=== PATIENT | male | born 1975 | race Caucasian/White ===

== ENCOUNTER 2024-02-12 14:33 | Inpatient (IN) | payer OTHER, SELFPAY ==
--- NOTE | ~2024-02-12 | CT_ITS ---
EXAMINATION: CT CERVICAL SPINE without contrast CLINICAL INFORMATION: Reason for Exam neck pain ams ? Fall COMPARISON: No prior CT scan available for comparison. TECHNIQUE: Computed axial sagittal and coronal images acquired using department's standard protocol. This CT examination was performed using dose optimization techniques as appropriate, variously including the following: *Automated exposure control *Adjustment of mA and/or kV according to patient size (this includes techniques or standardized protocols for targeted exams where dose is matched to indication/reason for exam; i.e. extremities or head) *Use of iterative reconstruction technique CONTRAST: None DLP: 647 mGy-cm FINDINGS: SKULL BASE: Visualized structures at skull base are normal, Included facial sinuses are clear, CERVICAL VERTEBRAE: Seven cervical vertebrae identified maintaining proper height and alignment, there is subtle radiolucent line through the left pedicle of C5 concerning for possible nondisplaced fracture. This does not involve the central canal. ATLANTOAXIAL AND ATLANTOOCCIPITAL ARTICULATION: Included occipital condyle are properly articulating with C1, measuring of C1 is intact. Proper articulation of the odontoid process with C1. POSTERIOR SPINES and lateral transverse processes: All are intact. DISCS: Narrowing of intervertebral disc spaces especially at C5-C6 and developed small osteophyte from the edges of endplates encroaching on the neural foramen bilaterally at multiple levels. PREVERTEBRAL SOFT TISSUE: There is prevertebral soft tissue swelling anterior to C7 LUNG APICES: Included lung apices are clear bilaterally. Paravertebral soft tissue including LYMPH NODE AND SALIVARY GLANDS THYROID: Paravertebral soft tissue including cervical lymph nodes are within normal limits. Included paranasal and salivary unremarkable. CT/CT cervical spine wo IV con IMPRESSION: 1. Subtle radiolucent line through the left pedicle of C5 concerning for possible nondisplaced fracture. This does not involve the central canal. 2. Narrowing of intervertebral disc spaces especially at C5-C6 and developed small osteophyte from the edges of endplates encroaching on the neural foramen bilaterally at multiple levels. 3. Prevertebral soft tissue swelling anterior to C7. 4. Would recommend recommend immobilization, follow-up MRI. (Referring physician staff is being called, by physician staff assistance, to be alerted of the above critical findings and recommendations.) Age 602/12/2024 6:17 PM
--- NOTE | ~2024-02-12 | XR_ITS ---
EXAMINATION: XR CERVICAL SPINE CLINICAL INFORMATION: Flexion and extension views of the cervical spine. COMPARISON: CT cervical spine 02/12/2024. TECHNIQUE: Flexion and extension lateral views of the cervical spine. FINDINGS: Trace retrolisthesis at C5-C6 is unchanged compared to prior CT and is stable on flexion and extension views. Trace anterolisthesis/angulation at C4-C5 is noticeable on the flexion view, not present on the extension view. No evidence of acute compression deformity. Subtle possible left pedicular fracture at C5 is better seen on prior CT. Stable intervertebral disc height loss at C5-C6. Redemonstration of multilevel cervical spondylosis. Again noted prevertebral soft tissue thickening anterior to C5-C7, best visualized on prior CT. XR/XR cervical spine w flex/ext IMPRESSION: Increased trace anterolisthesis/angulation at C4-C5 on the flexion view with stable trace retrolisthesis at C5-C6 and intervertebral disc height loss at C5-C6. Redemonstration of prevertebral soft tissue thickening from C5 through C6. Recommend further evaluation of ligamentous injuries as well as spinal cord signal abnormalities and collections with an MRI of the cervical spine.
--- NOTE | ~2024-02-12 | MR_ITS ---
EXAMINATION: MR CERVICAL SPINE WITHOUT CONTRAST CLINICAL INFORMATION: Hyperdynamic motion of the cervical spine. Potential fracture by CT. COMPARISON: CT cervical spine from 02/12/2024. Cervical spine radiographs from 02/12/2024. TECHNIQUE: MRI of the cervical spine was obtained using routine sequences without contrast. FINDINGS: Partial straightening of the normal cervical lordosis. Mild degenerative anterolisthesis of C3 on C4. Moderate degenerative retrolisthesis of C5 on C6. Advanced degenerative disc disease at C5-C6. Mild degenerative disc disease at all additional levels. Associated mixed Modic type discogenic and plate changes including Modic type I discogenic edema at C2 C4 and C5-C6. Mild marrow edema within the posterior elements of C3-C7 consistent with degenerative stress reaction. No additional suspicious marrow edema. The vertebral body heights are well-maintained. No prevertebral edema. The anterior longitudinal ligament, posterior longitudinal ligament, and ligamentum flavum complex appear intact. No epidural collection. No demonstrated spinal cord signal abnormalities. Limited evaluation of the soft tissues of the neck without demonstrated abnormalities. The flow voids of the major cervical vessels are maintained. The previously noted potential fracture at C6 localizes to calcific atherosclerotic disease of the left vertebral artery. Normal appearance of the cervicomedullary junction and visualized posterior fossa. SPINAL LEVELS: C2-C3: Normal annular contour. There is mild right and no left uncovertebral joint arthropathy. There is mild bilateral facet joint arthropathy. There is no neural foraminal stenosis. There is no spinal canal stenosis. C3-C4: Mild disc-osteophyte complex. There is moderate right and mild left uncovertebral joint arthropathy. There is severe right and mild left facet joint arthropathy. There is moderate right and no left neural foraminal stenosis. There is no spinal canal stenosis. C4-C5: Mild disc-osteophyte complex. There is mild right and no left uncovertebral joint arthropathy. There is moderate bilateral facet joint arthropathy. There is no neural foraminal stenosis. There is no spinal canal stenosis. C5-C6: Moderate disc-osteophyte complex. There is severe right and moderate left uncovertebral joint arthropathy. There is moderate bilateral facet joint arthropathy. There is severe right and moderate left neural foraminal stenosis. There is mild spinal canal stenosis. C6-C7: Minimal disc-osteophyte complex. There is mild right and no left uncovertebral joint arthropathy. There is moderate bilateral facet joint arthropathy. There is mild right and no left neural foraminal stenosis. There is no spinal canal stenosis. C7-T1: Normal annular contour. There is no uncovertebral joint arthropathy. There is no facet joint arthropathy. There is no neural foraminal stenosis. There is no spinal canal stenosis. MR/MR cervical spine wo con IMPRESSION: 1. Moderate multilevel degenerative spondyloarthropathy of the cervical spine as described in detail above. Most notably, there is mild spinal canal stenosis at C5-C6. Moderate to severe neural foraminal stenoses at C3-C4 and C5-C6. 2. No evidence of acute traumatic injury of the cervical spine.
--- NOTE | ~2024-02-12 | CT_ITS ---
EXAMINATION: CT CHEST, ABDOMEN AND PELVIS with contrast CLINICAL INFORMATION: Reason for Exam ? Fall ethos ams COMPARISON: None TECHNIQUE: Multidetector volumetric CT imaging of the chest abdomen and pelvis obtained Axial MIP volume rendering provided. Sagittal and coronal reformatted images were obtained. This CT examination was performed using dose optimization techniques as appropriate, variously including the following: *Automated exposure control *Adjustment of mA and/or kV according to patient size (this includes techniques or standardized protocols for targeted exams where dose is matched to indication/reason for exam; i.e. extremities or head) *Use of iterative reconstruction technique CONTRAST: 85 mL Omnipaque 350 injected. Reformatted coronal and sagittal imaging was performed. FINDINGS: FOLDING MACHINE FEEDER, LINES TUBES: Special Skills Officer reviewed, no lines. LUNGS: Interstitial: No evidence of significant interstitial disease. Lung nodules: There is peripheral pleural-based nodule 7 x 3 mm, averaging 5 mm right upper lobe pleural-based image 166 series 25. AIRWAYS: Trachea and bronchi are normal. PLEURA: No pleural effusion or pneumothorax. MEDIASTINUM AND [place]: The visualized thyroid gland is unremarkable. No mediastinal, hilar or axillary lymphadenopathy. There is no mediastinal mass. THORACIC AORTA: Thoracic aorta is normal in size. CHEST WALL, LOWER NECK, SURROUNDING SOFT TISSUES: Normal HEART AND PERICARDIUM: Heart is normal in size. There is no pericardial effusion. There are heavy coronary calcifications. HEPATOBILIARY: Enlarged diffusely hypodense liver suggesting hepatic steatosis. GALLBLADDER: Gallbladder unremarkable. SPLEEN: Spleen is enlarged 14 cm. PANCREAS: No focal mass or ductal dilatation. GI TRACT: No distention or wall thickening. No CT evidence of appendicitis. ADRENALS: No adrenal nodules. KIDNEYS/URETERS: No hydronephrosis, stones or solid mass lesions. PELVIC ORGANS/BLADDER: Unremarkable PERITONEUM: No free air or fluid. LYMPH NODES: Mildly prominent retroperitoneal para-aortic lymph nodes uncertain etiology, no bulky adenopathy. VASCULAR:Abdominal aorta normal in size. There is prominence of the portal vein, varices around the umbilicus and gastroesophageal junction, this is suspicious for portal hypertension portosystemic anastomosis. No ascites. BONES, ABDOMINAL WALL AND SOFT TISSUES: Age-appropriate changes of the spine and skeletal system, no destructive osteolytic or osteosclerotic bone lesion found CT/CT abdomen pelvis w IV con IMPRESSION: 1. No CT evidence of solid organ injury. 2. Enlarged diffusely hypodense liver suggesting hepatic steatosis. 3. Splenomegaly 14 cm. 4. There is prominence of the portal vein, varices around the umbilicus and gastroesophageal junction, this is suspicious for portal hypertension portosystemic anastomosis. No ascites. 5. Mildly prominent retroperitoneal para-aortic lymph nodes uncertain etiology, no bulky adenopathy. 6. Heavy coronary calcifications. 7. There are tiny lung nodules largest 7 mm pleural-based right upper lobe. According to the UPDATED 2017 Fleischner Society recommendations, the advised follow-up imaging for solid nodules <6 mm in the middle/lower lobes is no routine follow up.
--- NOTE | ~2024-02-12 | US_ITS ---
EXAMINATION: US ABDOMEN LIMITED CLINICAL INFORMATION: Evaluate for cirrhosis. COMPARISON: CT abdomen 02/12/2024. TECHNIQUE: Liver ultrasound was performed. FINDINGS: Enlarged echogenic liver consistent with steatosis. Subtle nodular contour. No discrete liver mass. No biliary ductal dilatation. Recanalized umbilical vein. Portal venous flow is normally directed into the liver. US/US abdomen limited IMPRESSION: Steatotic liver with nodular contour suggesting cirrhosis. Recanalized umbilical vein consistent with portal venous hypertension.
--- NOTE | ~2024-02-12 | CT_ITS ---
EXAMINATION: CT CHEST, ABDOMEN AND PELVIS with contrast CLINICAL INFORMATION: Reason for Exam ? Fall ethos ams COMPARISON: None TECHNIQUE: Multidetector volumetric CT imaging of the chest abdomen and pelvis obtained Axial MIP volume rendering provided. Sagittal and coronal reformatted images were obtained. This CT examination was performed using dose optimization techniques as appropriate, variously including the following: *Automated exposure control *Adjustment of mA and/or kV according to patient size (this includes techniques or standardized protocols for targeted exams where dose is matched to indication/reason for exam; i.e. extremities or head) *Use of iterative reconstruction technique CONTRAST: 85 mL Omnipaque 350 injected. Reformatted coronal and sagittal imaging was performed. FINDINGS: ASSISTED LIVING HOME DIRECTOR, LINES TUBES: Associate Director Data & Analytics reviewed, no lines. LUNGS: Interstitial: No evidence of significant interstitial disease. Lung nodules: There is peripheral pleural-based nodule 7 x 3 mm, averaging 5 mm right upper lobe pleural-based image 166 series 25. AIRWAYS: Trachea and bronchi are normal. PLEURA: No pleural effusion or pneumothorax. MEDIASTINUM AND [place]: The visualized thyroid gland is unremarkable. No mediastinal, hilar or axillary lymphadenopathy. There is no mediastinal mass. THORACIC AORTA: Thoracic aorta is normal in size. CHEST WALL, LOWER NECK, SURROUNDING SOFT TISSUES: Normal HEART AND PERICARDIUM: Heart is normal in size. There is no pericardial effusion. There are heavy coronary calcifications. HEPATOBILIARY: Enlarged diffusely hypodense liver suggesting hepatic steatosis. GALLBLADDER: Gallbladder unremarkable. SPLEEN: Spleen is enlarged 14 cm. PANCREAS: No focal mass or ductal dilatation. GI TRACT: No distention or wall thickening. No CT evidence of appendicitis. ADRENALS: No adrenal nodules. KIDNEYS/URETERS: No hydronephrosis, stones or solid mass lesions. PELVIC ORGANS/BLADDER: Unremarkable PERITONEUM: No free air or fluid. LYMPH NODES: Mildly prominent retroperitoneal para-aortic lymph nodes uncertain etiology, no bulky adenopathy. VASCULAR:Abdominal aorta normal in size. There is prominence of the portal vein, varices around the umbilicus and gastroesophageal junction, this is suspicious for portal hypertension portosystemic anastomosis. No ascites. BONES, ABDOMINAL WALL AND SOFT TISSUES: Age-appropriate changes of the spine and skeletal system, no destructive osteolytic or osteosclerotic bone lesion found CT/CT chest w IV con IMPRESSION: 1. No CT evidence of solid organ injury. 2. Enlarged diffusely hypodense liver suggesting hepatic steatosis. 3. Splenomegaly 14 cm. 4. There is prominence of the portal vein, varices around the umbilicus and gastroesophageal junction, this is suspicious for portal hypertension portosystemic anastomosis. No ascites. 5. Mildly prominent retroperitoneal para-aortic lymph nodes uncertain etiology, no bulky adenopathy. 6. Heavy coronary calcifications. 7. There are tiny lung nodules largest 7 mm pleural-based right upper lobe. According to the UPDATED 2017 Fleischner Society recommendations, the advised follow-up imaging for solid nodules <6 mm in the middle/lower lobes is no routine follow up.
--- NOTE | ~2024-02-12 | CT_ITS ---
CT head/brain wo IV con CLINICAL INFORMATION: Reason for Exam ams COMPARISON: [address] 2019 TECHNIQUE: Department standard protocol. This CT examination was performed using dose optimization techniques as appropriate, variously including the following: *Automated exposure control *Adjustment of mA and/or kV according to patient size (this includes techniques or standardized protocols for targeted exams where dose is matched to indication/reason for exam; i.e. extremities or head) *Use of iterative reconstruction technique DLP: mGy-cm FINDINGS: CEREBRAL HEMISPHERES: There is no evidence of intra-axial or extra-axial mass, hemorrhage or acute infarct. BRAIN PARENCHYMA: Normal oh-white matter differentiation. SUBDURAL SPACE: No bleed. BASAL GANGLIA AND PINEAL GLAND: Unremarkable VENTRICLES: Symmetric and normal in size. CEREBELLUM AND BRAINSTEM: No space-occupying mass, hemorrhage or acute infarct. CEREBELLOPONTINE ANGLES: No lesion found. ORBITS: No intraorbital mass. VESSELS: Unremarkable SKULL BASE: Unremarkable INCLUDED SINUSES AT SKULL BASE: Clear SKULL AND SKIN: No fracture or bone lesion found. CT/CT head/brain wo IV con IMPRESSION: No CT evidence of intracranial space-occupying mass, bleed or infarct.
--- NOTE | 2024-02-12 14:34 | ECG_ITS ---
Test Reason : TACHYCARDIA Blood Pressure : / mmHG Vent. Rate : 090 BPM Atrial Rate : 090 BPM P-R Int : 150 ms QRS Dur : 088 ms QT Int : 388 ms P-R-T Axes : 003 -20 041 degrees QTc Int : 474 ms Normal sinus rhythm Septal infarct , age undetermined Abnormal ECG When compared with ECG of 02-JAN-2019 14:29, Septal infarct is now Present Nonspecific T wave abnormality now evident in Inferior leads Referred By: Cortez Oneal Electronically Signed By:SEBAS TAMEZ MD
[2024-02-12 14:48] VITALS: BP 182/92; PULSE 103; RESP 22; TEMP 37.2; O2SAT 96; BMI 24.4
[2024-02-12] MEDS: 0.9 % Sodium Chloride 1,000 ML 999 ML IV (14:53)
--- NOTE | 2024-02-12 14:57 | ED.SEIZURE ---
HPI - Seizure General Chief Complaint: Seizure Stated Complaint: SEIZURE Time Seen by Provider: 02/12/24 14:34 Source: patient Mode of arrival: ambulatory Limitations: altered mental status History of Present Illness ED Provider: Brooklynn TARANGO HPI Narrative: This is a 48-year-old male history of alcohol use disorder with alcohol withdrawal seizures presenting to the emergency department status post seizure that occurred prior to arrival, according to patient's mother he was in a sober house for about 8 months, recently got out since then he has been drinking 1-3 beers per day, his last drink was a few days ago, she reports the last time she heard from him was yesterday when he was normal her overt today he was vomiting in the morning and just did not seem well. She tried to give him something to drink however this did not seem to help. She denies history of substance abuse. She reports he has had alcohol withdrawal seizures last 1 was about 2-3 years ago. Patient unable to answer history questions or review of systems. He is awake however not answering questions not following commands. Related Data Home Medications ?Medication ?Instructions ?Recorded ?Confirmed No Known Home Meds 02/12/24 02/12/24 Allergies Allergy/AdvReac Type Severity Reaction Status Date / Time No Known Allergies Allergy Unverified 02/12/24 14:51 [No Known Allergies*] Review of Systems Review of Systems: Yes all other systems are reviewed and are negative PMFSH Past Medical History Attestation statement: The following information was validated with the patient. Source: old records reviewed and nursing notes reviewed Social History Social History Alcohol intake: current Alcohol intake frequency: 3 or more drinks per day Alcohol type: beer Smoked in Last 30 Days: No Use of substances other than those prescribed or required for medical reasons: Yes Substance Use Type: Crack/Cocaine, Painkillers and Prescription Drugs Advance Directives: No Advance Directives Information Provided: No Physical Exam Vital Signs: Vital Signs: Last Vital Signs Temp 99.0 F 02/12/24 19:26 Pulse 81 02/12/24 22:38 Resp 17 02/12/24 22:38 BP 142/76 H 02/12/24 22:38 Pulse Ox 98 02/12/24 22:38 O2 Del Method Room Air 02/12/24 22:38 BMI result Body Mass Index 24.4 vss Appearance:Awake. No acute distress.?Eyes open. Not speaking Head: Normocephalic, atraumatic, no step-offs or deformities Eyes: Pupils equal, round and reactive to light.? Neck: Normal inspection.? Neck supple.? CVS: Normal heart rate and rhythm.? Pulses normal.? Respiratory: No respiratory distress.? Breath sounds normal.? Abdomen: Soft and nontender.? Skin: Skin warm and dry.? Normal skin color.? Normal skin turgor.? Extremities: No lower extremity edema.? Patient not following commands difficult to access strength Back: No midline tenderness, no C-spine tenderness, full range of motion, no CVA tenderness bilaterally Neuro: Awake. Not following comands. Course Reevaluation(s) Reevaluation #1: CBC unremarkable. Baseline leukopenia. Chemistry pending. Ethanol 44 Patient now much more awake he states he has 8 drinks a day last one lasat night around 7 pm also endorses that he uses percocet and cocaine. Time: 15:30 Reevaluation #2: Sign out to Eddi TARANGO, pending ct scan and hospital admission Time: 15:52 Reevaluation #3: 4:30 p.m., February 12, 2024 Received sign-out with the patient in stable condition pending imaging. Patient is currently receiving phenobarbital and magnesium repletion. 6:[address] results returned and reviewed. Cervical spine CT demonstrates multiple concerning findings including possible radiolucent line through C5 concerning for nondisplaced fracture, C5-C6 disc narrowing and prevertebral soft tissue swelling at the anterior aspect of C7. Call made to [facility] neurosurgical team. Patient placed in a cervical collar. Discussed with the patient regarding any pain. Does not appear to be entirely reliable. He does confirm that he does have pain intermittently in his neck. He does not recall any recent trauma. Patient does report occasional tingling down the left arm which affects his left 4th and 5th digits. [employer] is 5/5 bilaterally. He has full range of motion of all joints. Patient is tolerating phenobarbital without difficulty. He has not had 2 seizures here. 6:55 p.m. discussed with neurosurgical PA at [facility], Nuria Thao PA-C . Films are currently under review. Reviewed radiology report. Agrees with current plan of a cervical collar and likely follow-up imaging. No indications for transfer at this time. She will call back once images are fully loaded and reviewed. 7:[address] Vaughn for hospital admission. 8:00 p.m. received call back from Nuria Thao PA-C , neurosurgery at [facility]. She was able to review axial images since all images did not upload, I have requested radiology re-upload to [facility]. In addition she is requesting flexion-extension x-ray cervical views for further evaluation are negative, patient may be from the cervical collar. This was discussed with the patient and he feels comfortable with this plan. Given the patient's history and findings, I feel it is this is reasonable to get improved views for better disposition. 9:30 p.m. this time. Upon returning from x-ray, cervical collar was returned until official radiology reading. CT images reviewed by neurosurgical team. X-rays also reviewed, no acute process but we will wait for official reading. Dr. Vaughn notified. February 13, 2024, 12:30 a.m. patient resting comfortably at this time. Official x-ray reading returned. Patient remains in cervical collar. Dr. Vaughn notified. Medications Administered Generic Name Dose Route Start Last Admin Trade Name Freq PRN Reason Stop Dose Admin Enoxaparin Sodium 40 mg 02/12/24 19:15 02/12/24 19:46 Enoxaparin Sodium 40 Mg/0.4 Ml Syringe SUBCUT 40 mg Q24H OBDULIO Administration Thiamine HCl 100 mg/ Sodium 101 mls @ 202 mls/hr 02/12/24 19:20 02/12/24 20:16 Chloride IV Infused DAILY OBDULIO Infusion Sodium Chloride 3 ml 02/13/24 00:00 02/13/24 00:13 0.9 % Sodium Chloride Flush 3 Ml Syringe IVFLUSH 3 ml QSHIFT OBDULIO Administration Discontinued Medications Generic Name Dose Route Start Last Admin Trade Name Freq PRN Reason Stop Dose Admin Famotidine 20 mg 02/12/24 21:45 02/12/24 22:12 Famotidine 20 Mg Tablet PO Not Given BID OBDULIO Sodium Chloride 1,000 mls @ 999 mls/hr 02/12/24 14:45 02/12/24 16:12 Ns IV 02/12/24 15:45 Infused .Q1H1M OBDULIO Infusion Magnesium Sulfate 2 gm in 50 mls @ 25 mls/hr 02/12/24 15:33 02/12/24 17:50 Magnesium Sulfate/H2o IV 02/12/24 17:32 Infused ONCE ONE Infusion Iohexol 85 ml 02/12/24 16:21 02/12/24 16:22 Iohexol 350 Mg/Ml 100 Ml Infus..Btl IV 02/12/24 16:22 85 ml ONCE ONE Administration Lorazepam 2 mg 02/12/24 16:00 02/12/24 16:00 Lorazepam 2 Mg/Ml Vial IM 02/12/24 16:01 2 mg ONCE ONE Administration Phenobarbital Sodium 438 mg 02/12/24 15:30 02/12/24 16:06 Phenobarbital Sodium 130 Mg/Ml Im Once IM 02/12/24 15:31 438 mg ONCE ONE Administration Protocol Phenobarbital Sodium 345 mg 02/12/24 18:30 02/12/24 19:47 Phenobarbital Sodium 130 Mg/Ml Vial Im Q3hx2 IM 02/12/24 21:31 345 mg Q3H OBDULIO Administration Protocol Phenobarbital Sodium 345 mg 02/12/24 22:30 02/12/24 22:39 Phenobarbital Sodium 130 Mg/Ml Vial Im Q3hx2 IM 02/12/24 22:31 345 mg Q3H OBDULIO Administration Protocol Medical Decision Making Medical Decision Making [facility] Narrative: 1435 48-year-old male presents with seizure prior to arrival history of alcohol withdrawal seizures has been drinking anywhere between 1-3 beers for the past week or so according to mother. Patient unable to answer questions. Physical exam patient awake, not following commands. No signs of evident trauma. Pupils equal round and reactive. Last known well time yesterday, out of stroke window, unable to obtain NIH stroke scale secondary to patient not following commands. Unclear if there was trauma associated or not. Concerns for alcohol use disorder with acute delirium tremens and alcohol withdrawal seizures. Will rule out metabolic derangements, traumatic injury to head, neck, chest, abdomen and pelvis. Also rule out polysubstance abuse. Patient placed on seizure precautions. Plan at this time will place patient on seizure precautions concerns, imaging, urine. Differential Diagnosis Differential Diagnoses: The differential diagnosis associated with the presentation includes Concerns for alcohol use disorder with acute delirium tremens and alcohol withdrawal seizures. Will rule out metabolic derangements, traumatic injury to head, neck, chest, abdomen and pelvis. Also rule out polysubstance abuse. Patient placed on seizure precautions. Admission/Observation Consideration of admission/observation: Escalation of care including admission/observation considered Lab Data MDM Lab Attestation statement: I reviewed the patient's lab results. 02/12/24 15:04 02/12/24 15:04 Labs: Lab Results 02/12/24 02/12/24 Range/Units 15:04 16:42 WBC 3.4 L (4.8-10.8) X10*3/uL RBC 4.78 (4.60-5.80) X10*6/uL Hgb 14.1 (14.0-18.0) g/dl Hct 40.1 L (42.0-52.0) % MCV 83.9 (80.0-98.0) fL MCH 29.5 (27.0-33.0) pg MCHC 35.2 (31.0-36.0) g/dl RDW 13.7 (11.0-16.0) % Plt Count 25 L (160-400) X10*3/uL MPV Not Reportable Immature Gran % (Auto) 0.6 H (0.0-0.4) % Neut % (Auto) 75.8 H (45-73) % Lymph % (Auto) 16.0 L (20-40) % Weakley % (Auto) 6.7 (2-11) % Eos % (Auto) 0.3 (0-4) % Baso % (Auto) 0.6 (0-2) % Lymph # (Auto) 0.6 L (1.2-4.9) X10*3/uL Weak[place] # (Auto) 0.2 (0.1-1.2) X10*3/uL Eos # (Auto) 0.0 (0.0-0.4) X10*3/uL Baso # (Auto) 0.0 (0.0-0.2) X10*3/uL Abs Immat Gran (auto) 0.02 (0.00-0.03) X10*3/uL Absolute Neuts (auto) 2.6 (2.0-8.3) x10*3/uL Absolute Nucleated RBC 0.000 (0.0-0.012) X10*3/uL Nucleated RBC % (auto) 0.0 (0.0-0.2) /100WBC Sodium 138 (135-145) mmol/L Potassium 3.3 (3.3-5.1) mmol/L Chloride 99 (96-108) mmol/L Carbon Dioxide 25 (22-29) mmol/L Anion Gap 17 (12-20) BUN 6 L (9-16) mg/dL Creatinine 0.68 (0.5-1.4) mg/dL Estim Creat Clear Calc 134.1 Estimated GFR > 60 Random Glucose 96 (60-115) mg/dL Calcium 9.3 (8.4-10.2) mg/dL Magnesium 1.1 L* (1.6-2.6) mg/dL Total Bilirubin 1.5 H (0.0-1.0) mg/dL AST 112 H (5-37) U/L ALT 63 H (0-40) U/L Alkaline Phosphatase 91 (39-117) U/L Troponin I High Sens < 2.7 (<3.5-35.0) ng/L Total Protein 8.2 H (6.5-8.0) g/dL Albumin 4.0 (3.5-5.0) g/dL Salicylates < 5.0 L (15-30) mg/dL Urine Opiates Screen Not Detected (Not Detect) Ur Buprenorphine Scrn Not Detected (Not Detect) ng/mL Ur Oxycodone Screen Not Detected (Not Detect) ng/mL Urine Methadone Screen Not Detected (Not Detect) ng/mL Urine Fentanyl Screen Not Detected (Not Detect) Acetaminophen < 3 (<30) mcg/mL Ur Barbiturates Screen POSITIVE H (Not Detect) Ur Phencyclidine Scrn Not Detected (Not Detect) Ur Amphetamines Screen Not Detected (Not Detect) U Benzodiazepines Scrn Not Detected (Not Detect) Urine Cocaine Screen Not Detected (Not Detect) U Marijuana (THC) Screen Not Detected (Not Detect) Ethyl Alcohol 44 mg/dL Independent Interpretation I performed an independent interpretation of an: CT Scan Radiology Impression Discussion of test interpretation with radiology: I discussed test interpretation with the radiologist and I have reviewed the radiologist's reading. Radiologist Impression: [address] [address] XRay Report Signed Patient: Timbo Rodriguez MR#: [id number] : 1975 Acct:[id number] Age/Sex: 48 / M ADM Date: 02/12/24 Loc: [facility]: Carlos Vaughn MD Ordering Physician: Eddi Graves Date of Service: 02/12/24 Procedure(s): XR cervical spine w flex/ext Accession Number(s): [id number] cc: Physician,Unknown ; Eddi Graves~ EXAMINATION: XR CERVICAL SPINE CLINICAL INFORMATION: Flexion and extension views of the cervical spine. COMPARISON: CT cervical spine 02/12/2024. TECHNIQUE: Flexion and extension lateral views of the cervical spine. FINDINGS: Trace retrolisthesis at C5-C6 is unchanged compared to prior CT and is stable on flexion and extension views. Trace anterolisthesis/angulation at C4-C5 is noticeable on the flexion view, not present on the extension view. No evidence of acute compression deformity. Subtle possible left pedicular fracture at C5 is better seen on prior CT. Stable intervertebral disc height loss at C5-C6. Redemonstration of multilevel cervical spondylosis. Again noted prevertebral soft tissue thickening anterior to C5-C7, best visualized on prior CT. XR/XR cervical spine w flex/ext IMPRESSION: Increased trace anterolisthesis/angulation at C4-C5 on the flexion view with stable trace retrolisthesis at C5-C6 and intervertebral disc height loss at C5-C6. Redemonstration of prevertebral soft tissue thickening from C5 through C6. Recommend further evaluation of ligamentous injuries as well as spinal cord signal abnormalities and collections with an MRI of the cervical spine. Dictated By: Josie Hdz Signed By: <Electronically signed by Josie Hdz in OV> 02/12/244 DD/ 41 TD/TT: Answering Service Agent: Independent Historian Clinical information obtained from an independent historian. History obtained from or confirmed by: Parent (mother ) Chronic Conditions Patient?s care impacted by: Other (alcohol use d/o ) Critical Care Time Critical Care Time Critical Care Time: Yes Total Critical Care Time: 45 Attestation: I attest to this time spent taking care of the patient, obtaining history, physical, reviewing labs, imaging, speaking to my attending, specialist or hospitalist. Discharge Plan Discharge Clinical Impression: Alcohol withdrawal seizure Patient Disposition: Admitted As Inpatient
[2024-02-12 15:08] LABS: MANUAL DIFF FLAG NO
[2024-02-12 15:10] LABS: Basophils Percent Auto 0.6 % (0-2); Eosinophils Percent Auto 0.3 % (0-4); Hematocrit 40.1 % (42.0-52.0); Hemoglobin 14.1 g/dl (14.0-18.0); Imm Gran Abs Auto 0.02 X10*3/uL (0.00-0.03); Imm Gran Pct Auto 0.6 % (0.0-0.4); Lymphocytes Absolute Auto 0.6 X10*3/uL (1.2-4.9); Mean Corpuscular HGB Conc 35.2 g/dl (31.0-36.0); Mean Corpuscular Hemoglobin 29.5 pg (27.0-33.0); Mean Corpuscular Volume 83.9 fL (80.0-98.0); Monocytes Absolute Auto 0.2 X10*3/uL (0.1-1.2); Monocytes Percent Auto 6.7 % (2-11); Neutrophils Absolute Auto 2.6 x10*3/uL (2.0-8.3); Neutrophils Percent Auto 75.8 % (45-73); Red Blood Count 4.78 X10*6/uL (4.60-5.80); Red Cell Distribution Width 13.7 % (11.0-16.0); White Blood Count 3.4 X10*3/uL (4.8-10.8)
--- NOTE | 2024-02-12 15:12 | PC.NURSE ---
Pt presents to ED via PV by mother. Mother bringing pt to ER, pt had seizure in car lasting approx 5 mins, unresponsive and full body shaking. Hx of daily alcohol use with last drink yesterday, hx of withdrawal seizures years ago. Hx obtained from mother due to pt not responding. Mother reports pt drinks between 2-6 drinks a day to her knowledge, no drug use. Pt brought in and administered 2mg of Ativan by RN IM in left thigh, verbal order from provider. Alert but not responding, breathing elevated, skin hot and clammy. Pt noted to be tachy on monitor worker and hypertensive. Seizure precautions in place.
[2024-02-12 15:23] VITALS: BP 147/82; PULSE 96; RESP 18; O2SAT 96
[2024-02-12 15:23] LABS: Ethanol 44 mg/dL
[2024-02-12 15:30] LABS: Salicylate < 5.0 mg/dL (15-30)
--- NOTE | 2024-02-12 15:30 | PC.NURSE ---
Pt awake, answering questions. Oriented to person, place and time. Reports daily alcohol use of 8 beers a day, last drink yesterday. Use of cocaine and painkillers as well, unknown last use. Reports chest pains and palpitations at this time, across his chest, 06/16.
[2024-02-12 15:35] LABS: Alanine Aminotransferase 63 U/L (0-40); Alkaline Phosphatase 91 U/L (39-117); Anion Gap 17 (12-20); Aspartate Amino Transferase 112 U/L (5-37); Bilirubin Total 1.5 mg/dL (0.0-1.0); Blood Urea Nitrogen 6 mg/dL (9-16); Calcium 9.3 mg/dL (8.4-10.2); Carbon Dioxide 25 mmol/L (22-29); Chloride 99 mmol/L (96-108); Creatinine Clr Calc Pharmacy 134.1; Estimated Glomerular Filt Rate > 60; Glucose Random 96 mg/dL (60-115); Magnesium 1.1 mg/dL (1.6-2.6); Potassium 3.3 mmol/L (3.3-5.1); Sodium 138 mmol/L (135-145); Total Protein 8.2 g/dL (6.5-8.0)
--- OUTSIDE RECORDS SUMMARY | 2024-02-12 15:38 | XMS_ITS | Continuity of Care Document ---
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 Name Role Phone Ivette FRANKS, [facility] Primary Care Physician [place] [facility] [place]s): 04/03/23 - 04/09/[address] [id number] Encounter Diagnosis Pancytopenia(Final) - 04/03/23 Alcohol use disorder, severe, dependence(Final) - 04/03/23 Syncope(Final) - 04/03/23 Alcohol intoxication(Final) - 04/03/23 Withdrawal seizures(Final) - 04/03/23 Discharge Disposition: A-D/C Home Attending Physician: Naomi Nunez MD Admitting Physician: Christos iRley MD Referring Physician: Not on Staff, Referring MD Allergies, Adverse Reactions, Alerts No Known Allergies Immunizations Given and Recorded Vaccine Date Status Refusal Reason pneumococcal 23-valent vaccine 09/25/19 Given influenza virus vaccine, inactivated 09/25/19 Give n tetanus-diphtheria toxoids (Td) 09/07/07 Given Medications acamprosate 333 mg oral delayed release tablet = 666 mg, By Mouth, 3 times a day with meals, # 180 tablet, 3 Refills, Maintenance, 04/09/23 9:42:00 EDT, Tablet, [facility], Partial fill upon patient request if the prescription is for a schedule II opioid drug. Start Date: 04/09/23 Status: Ordered folic acid 1 mg oral tablet 1 mg, 1, tablet, By Mouth, Daily, # 90 tablet, Refills 0, Tot. Refills 0, Maintenance, 04/09/23 9:42:00 EDT, Route to Pharmacy Electronically, [facility] Start Date: 04/09/23 Stop Date: 07/08/23 Status: Ordered multivitamin Multiple Vitamins oral tablet 1 tablet, By Mouth, Daily, # 90 tablet, 0 Refills, Maintenance, 04/09/23 9:42:00 EDT, Tablet, [facility], Partial fill upon patient request if the prescription is for a schedule II opioid drug., 1 tablet By Mouth Daily Start Date: 04/09/23 Status: Ordered thiamine 100 mg oral tablet 100 mg, 1, tablet, By Mouth, Daily, for 90 days, # 90 tablet, Refills 0, Tot. Refills 0, Acute 07/08/23 9:43:00 EDT, 04/09/23 9:43:00 EDT, Route to Pharmacy Electronically, [facility], Partial fill upon patient request if the prescriptio... Start Date: 04/09/23 Stop Date: 07/08/23 Status: Ordered Vitamin B-12 1000 mcg oral tablet 1,000 mcg, 1, tablet, By Mouth, Daily, Refills 0, Maintenance, 04/03/23 7:16:00 EDT, Partial fill upon patient request if the prescription is for a schedule II opioid drug. Start Date: 04/03/23 Status: Ordered Problem List Condition Confirmation Course Effective Dates Status [facility] Informant Chronic alcohol use Confirmed Active Results Orders for Microbiology Reports Name Date Blood Parasite Smear (Malaria Smear) 03/09 Blood Culture 04/04/23 Blood Culture #2 04/04/23 Microbiology Reports TEST:Blood Parasite Smear STATUS:Auth (Verified) BODY SITE: SOURCE:Blood COLLECTED DATE/TIME:04/05/23 3:35 PM Blood Parasite Smear SPECIMEN DESCRIPTION : BLOOD SPECIAL REQUESTS : NONE DIRECT EXAM : NO INTRA OR EXTRA-ERYTHROCYTIC PARASITES OBSERVED ON THIN SMEARS NO PARASITES OBSERVED ON THICK SMEARS REPORT STATUS : FINAL 04/06/2023 TEST:Blood Culture STATUS:Auth (Verified) BODY SITE: SOURCE:Blood COLLECTED DATE/TIME:04/04/23 10:18 AM Blood Culture SPECIMEN DESCRIPTION : BLOOD LARM SPECIAL REQUESTS : NONE CULTURE : NO GROWTH 5 DAYS. REPORT STATUS : FINAL 04/09/2023 TEST:Blood Culture, Second Order STATUS:Auth (Verified) BODY SITE: SOURCE:Blood COLLECTED DATE/TIME:04/04/23 10:18 AM Blood Culture, Second Order SPECIMEN DESCRIPTION : BLOOD R ARM SPECIAL REQUESTS : NONE CULTURE : NO GROWTH 5 DAYS. REPORT STATUS : FINAL 04/09/2023 Radiology Reports * Exam Date Time Procedure Performing Provider Status 04/05/23 1:[address] Abd/Pelvis W/ IV + Oral Contrast Colon , Breanna; Auth (Verified) Notes: (CT Abd/Pelvis W/ IV + Oral Contrast) Reason For Exam: no clear source of infection;Fever RESULT: CT Abd/Pelvis W/ IV + Oral Contrast CT Chest W/ Contrast, CT Abd/Pelvis W/ IV + Oral Contrast INDICATION: Reason: Infection; SIRS with no clear source of infection; Clinical Question(s): Abscess Empyema; Special Instructions: D dimer is borderline elevated . Can we do an exam where we can check for both infection and PE ? TECHNIQUE: Helical CT scan of the chest, abdomen, and pelvis with IV contrast, formatted in 3 planes. 100 cc of Omnipaque 300 was administered intravenously. This study was performed with oral contrast. Weight-based protocol was performed using automatic exposure control. CTDIvol Body: 9.10 mGy, DLP Body: 690 mGy*cm. COMPARISON: None. FINDINGS: Facility Manager Histology view findings, lines and tubes: None. Trachea and airways: Patent without evidence of tracheal or endobronchial lesion. Lungs and pleura: Trace left lower lobe atelectasis. Lungs are otherwise well- aerated and clear with normal vascularity. No effusion or pneumothorax. Mediastinum and lore: No mass or hematoma. No mediastinal or hilar lymphadenopathy. No esophageal abnormality. Normal thyroid. Heart: Heart is normal in size. No pericardial effusion. Aorta: No aortic aneurysm. Pulmonary arteries: Normal caliber. No evidence of pulmonary embolism on this study performed without angiographic technique. Chest wall soft tissues: Mild bilateral gynecomastia. Diaphragm: Intact. Liver: Enlarged with a prominent left lobe. Diffusely diminished attenuation. No focal hepatic lesion. Recanalized umbilical vein Gallbladder: No CT evidence of gallbladder pathology. Bile ducts: No biliary ductal dilation. Spleen: Enlarged with sagittal dimension 15.1 cm. No focal splenic lesion. Pancreas: No suspicious lesion or ductal dilatation. Adrenal glands: No nodule. Kidneys and ureters: No hydronephrosis, stone, or suspicious lesion. Bladder: No wall thickening or surrounding stranding. Reproductive organs: Bilateral hydroceles. Otherwise unremarkable. Stomach, small bowel, and large bowel: Normal caliber stomach and bowel loops. No surrounding inflammatory changes. Appendix: The appendix is well seen and appears normal. There is mild inflammatory change in the fat near the appendix in the right lower quadrant. Peritoneum and retroperitoneum: No ascites or pneumoperitoneum. No omental or mesenteric lesions. Lymph nodes: No enlarged lymph nodes. Blood vessels: No vascular calcifications or aneurysm. Recanalized umbilical vein and esophageal varices are noted. Abdominal and pelvic wall soft tissues: No acute abnormality. Bones: No acute abnormality. IMPRESSION: No specific etiology of infection is demonstrated. Hepatosplenomegaly with evidence of portal venous hypertension including esophageal varices and a recanalized umbilical vein. Nonspecific mild inflammatory change in the right lower quadrant of the abdomen. Note is made that the appendix appears normal. Bilateral hydroceles. WSN: [id number] Ordering Physician: Jose Garcai Dictated By: Kareem Vasquez MD Dictated Date/Time: 04/05/23 2:46 pm Reviewed By: Kareem Vasquez MD Signed By: Kareem Vasquez MD Signed Date/Time: 04/05/23 2:46 pm Transcribed By: ABNER Transcribed Date/Time: 04/05/23 2:29 pm * Exam Date Time Procedure Performing Provider Status 04/05/23 1:[address] Chest W/ Contrast Colon , Breanna; Auth (Verified) Notes: (CT Chest W/ Contrast) Reason For Exam: SIRS with no clear source of infection;Infection RESULT: CT Chest W/ Contrast CT Chest W/ Contrast, CT Abd/Pelvis W/ IV + Oral Contrast INDICATION: Reason: Infection; SIRS with no clear source of infection; Clinical Question(s): Abscess Empyema; Special Instructions: D dimer is borderline elevated . Can we do an exam where we can check for both infection and PE ? TECHNIQUE: Helical CT scan of the chest, abdomen, and pelvis with IV contrast, formatted in 3 planes. 100 cc of Omnipaque 300 was administered intravenously. This study was performed with oral contrast. Weight-based protocol was performed using automatic exposure control. CTDIvol Body: 9.10 mGy, DLP Body: 690 mGy*cm. COMPARISON: None. FINDINGS: Facility Manager Histology view findings, lines and tubes: None. Trachea and airways: Patent without evidence of tracheal or endobronchial lesion. Lungs and pleura: Trace left lower lobe atelectasis. Lungs are otherwise well- aerated and clear with normal vascularity. No effusion or pneumothorax. Mediastinum and lore: No mass or hematoma. No mediastinal or hilar lymphadenopathy. No esophageal abnormality. Normal thyroid. Heart: Heart is normal in size. No pericardial effusion. Aorta: No aortic aneurysm. Pulmonary arteries: Normal caliber. No evidence of pulmonary embolism on this study performed without angiographic technique. Chest wall soft tissues: Mild bilateral gynecomastia. Diaphragm: Intact. Liver: Enlarged with a prominent left lobe. Diffusely diminished attenuation. No focal hepatic lesion. Recanalized umbilical vein Gallbladder: No CT evidence of gallbladder pathology. Bile ducts: No biliary ductal dilation. Spleen: Enlarged with sagittal dimension 15.1 cm. No focal splenic lesion. Pancreas: No suspicious lesion or ductal dilatation. Adrenal glands: No nodule. Kidneys and ureters: No hydronephrosis, stone, or suspicious lesion. Bladder: No wall thickening or surrounding stranding. Reproductive organs: Bilateral hydroceles. Otherwise unremarkable. Stomach, small bowel, and large bowel: Normal caliber stomach and bowel loops. No surrounding inflammatory changes. Appendix: The appendix is well seen and appears normal. There is mild inflammatory change in the fat near the appendix in the right lower quadrant. Peritoneum and retroperitoneum: No ascites or pneumoperitoneum. No omental or mesenteric lesions. Lymph nodes: No enlarged lymph nodes. Blood vessels: No vascular calcifications or aneurysm. Recanalized umbilical vein and esophageal varices are noted. Abdominal and pelvic wall soft tissues: No acute abnormality. Bones: No acute abnormality. IMPRESSION: No specific etiology of infection is demonstrated. Hepatosplenomegaly with evidence of portal venous hypertension including esophageal varices and a recanalized umbilical vein. Nonspecific mild inflammatory change in the right lower quadrant of the abdomen. Note is made that the appendix appears normal. Bilateral hydroceles. WSN: [id number] Ordering Physician: Jose Garcia Dictated By: Kareem Vasquez MD Dictated Date/Time: 04/05/23 2:46 pm Reviewed By: Kareem Vasquez MD Signed By: Kareem Vasquez MD Signed Date/Time: 04/05/23 2:46 pm Transcribed By: ABNER Transcribed Date/Time: 04/05/23 2:29 pm * Exam Date Time Procedure Performing Provider Status 04/05/23 10:57 AM Knee 1 or 2 Views Right Halina Márquez; Auth (Verified) Notes: (Knee 1 or 2 Views Right) Reason For Exam: check for effusion concern for infection;Infection RESULT: Knee 1 or 2 Views Right Knee 1 or 2 Views Right, 2 views Reason: Infection; check for effusion concern for infection. COMPARISON: None. FINDINGS: There is no evidence of acute or healing fracture, dislocation or bone lesion. No arthritic changes. No osteochondral defects or intra-articular loose bodies. No evidence of joint effusion. IMPRESSION: No acute displaced fracture or radiographic evidence of osteomyelitis. WSN: [id number] Ordering Physician: Jose Garcia Dictated By: Anya Ramos MD Dictated Date/Time: 04/05/23 11:05 a Reviewed By: Anya Ramos MD Signed By: Anya Ramos MD Signed Date/Time: 04/05/23 11:05 am Transcribed By: ABNER Transcribed Date/Time: 04/05/23 11:05 am * Exam Date Time Procedure Performing Provider Status 04/03/23 5:12 PM US Liver/Spleen Tessa Garcia; Auth (Verified) Notes: (US Liver/Spleen) Reason For Exam: ETOH Abuse RESULT: US Liver/Spleen US Liver/Spleen Reason: ETOH Abuse; Clinical Question(s): Cirrhosis COMPARISON: None. FINDINGS: Liver: Heterogeneous echotexture. No focal lesion is seen. Nodular hepatic contour. Main portal vein patent with normal hepatopetal direction of flow. Recanalized umbilical vein. Biliary Tree: No intrahepatic or extrahepatic bile duct dilation is identified. Common duct measures: 0.3 cm. Spleen: Mildly enlarged up to 16.8 cm Other: No free fluid. IMPRESSION: Cirrhotic liver with mild splenomegaly. WSN: [id number] Ordering Physician: Venkat Brown Dictated By: Rc Gómez MD Dictated Date/Time: 04/03/23 8:24 pm Reviewed By: Rc Gómez MD Signed By: Rc Gómez MD Signed Date/Time: 04/03/23 8:24 pm Transcribed By: ABNER Transcribed Date/Time: 04/03/23 8:23 pm * Exam Date Time Procedure Performing Provider Status 04/03/23 2:29 AM Chest 2 Views Frontal and Lat Georgia May; Auth (Verified) Notes: (Chest 2 Views Frontal and Lat) Reason For Exam: Shortness of Breath RESULT: Chest 2 Views Frontal and Lat Chest 2 Views Frontal and Lat Reason: Shortness of Breath; Clinical Question(s): CHF COMPARISON: 03/08/2019 FINDINGS: LINES AND TUBES: None. LUNGS AND PLEURA: Low lung volumes and mild asymmetric elevation of the right hemidiaphragm. Clear lungs. Normal pulmonary vascularity. No pleural effusion. No pneumothorax. HEART, MEDIASTINUM AND LORE: Heart is normal in size. Normal mediastinal and hilar contour. BONES AND SOFT TISSUES: No acute abnormality. Mild chronic degenerative changes. IMPRESSION: No acute abnormality. WSN: [id number] Ordering Physician: Blanca Arenas Dictated By: Felisa Saenz MD Dictated Date/Time: 04/03/23 7:55 am Reviewed By: Felisa Saenz MD Signed By: Felisa Saenz MD Signed Date/Time: 04/03/23 7:55 am Transcribed By: ABNER Transcribed Date/Time: 04/03/23 7:54 am * Exam Date Time Procedure Performing Provider Status 04/03/23 3:58 AM US Doppler Ext Lower Venous Bilat Shakira Amador; Auth (Verified) Notes: (US Doppler Ext Lower Venous Bilat) Reason For Exam: Pain in limb;Other: RESULT: US Doppler Ext Lower Venous Bilat US Doppler Ext Lower Venous Bilat Reason: Pain in limb; Clinical Question(s): Thrombosis COMPARISON: None IMAGING TECHNIQUE: Ultrasound of the veins from the groin through the calf was performed using grayscale, color, and spectral Doppler ultrasound assessing for complete compressibility and normal flowcharacteristics. FINDINGS: RIGHT LOWER EXTREMITY: Common femoral vein: Patent. No thrombosis. Femoral vein: Patent. No thrombosis. Popliteal vein: Patent. No thrombosis. Gastrocnemius veins: The visualized portions are patent without evidence of thrombosis. Peroneal veins: The visualized portions are patent without evidence of thrombosis. Posterior tibial veins: The visualized portions are patent without evidence of thrombosis. LEFT LOWER EXTREMITY: Common femoral vein: Patent. No thrombosis. Femoral vein: Patent. No thrombosis. Popliteal vein: Patent. No thrombosis. Gastrocnemius veins: The visualized portions are patent without evidence of thrombosis. Peroneal veins: The visualized portions are patent without evidence of thrombosis. Posterior tibial veins: The visualized portions are patent without evidence of thrombosis. OTHER FINDINGS: There is diffuse calf edema. IMPRESSION: No evidence of deep venous thrombosis. I have personally reviewed the images and I agree with this report. WSN: [id number] Ordering Physician: Blanca Arenas Dictated By: Daniela Mondragon DO Dictated Date/Time: 04/03/23 6:36 am Reviewed By: Ayo Lowry MD Signed By: Ayo Lowry MD Signed Date/Time: 04/03/23 6:41 am Transcribed By: ABNER Transcribed Date/Time: 04/03/23 4:12 am * Exam Date Time Procedure Performing Provider Status 04/03/23 3:[address] Head/Brain W/O Contrast Ariadne Barnes Z; Auth (Verified) Notes: (CT Head/Brain W/O Contrast) Reason For Exam: Trauma RESULT: CT Head/Brain W/O Contrast CT Head/Brain W/O Contrast INDICATION: Reason: Trauma; Clinical Question(s): Hematoma; Order Comment: TECHNIQUE: Noncontrast head CT using axial technique and reconstructed in axial and coronal planes.Iterative reconstruction techniques are used to optimize dose and image quality. CTDIvol Head: 48.10 mGy, DLP Head: 773 mGy*cm. COMPARISON: None. FINDINGS: Facility Manager Histology view findings, lines and tubes: None. BRAIN AND EXTRA-AXIAL SPACES: No parenchymal hemorrhage, midline shift, or mass effect. Mcguire-white matter differentiation is wellpreserved. No acute infarct. Moderate prominence of the ventricles and sulci consistent with parenchymal volume loss. No white matter lesions. No subarachnoid hemorrhage. No subdural or epidural collection. CALVARIUM, SKULL BASE, AND SOFT TISSUES: No fractures or suspicious bony lesions. The paranasal sinuses and mastoid air cells are clear. Visualized orbits and globes are intact. The extracranial soft tissues are unremarkable. IMPRESSION: No acute intracranial pathology. I have personally reviewed the images and I agree with this report. WSN: [id number] Ordering Physician: Blanca Arenas Dictated By: Daniela Mondragon DO Dictated Date/Time: 04/03/23 7:44 am Reviewed By: Rohan Love MD Signed By: Rohan Love MD Signed Date/Time: 04/03/23 7:49 am Transcribed By: ABNER Transcribed Date/Time: 04/03/23 3:44 am Vital Signs Most recent to oldest [Reference Range]: 1 2 3 Weight 74.3 kg (04/06/23 7:00 AM) 74.5 kg (04/05/23 6:25 AM) 76.5 kg (04/03/23 10:35 PM) Oxygen Saturation [94-100 %] 99 % (04/09/23 8:00 AM) 98 % (04/09/23 6:00 AM) 94 % (04/09/23 4:00 AM) Pulse Rate [55-90 bpm] 107 bpm *H* (04/09/23 6:00 AM) 105 bpm *H* (04/09/23 4:07 AM) 100 bpm *H* (04/09/23 4:00 AM) Blood Pressure [90-138/55-84 mm Hg] 115/91mm Hg (04/09/23 8:00 AM) 136/90mm Hg (04/09/23 6:00 AM) 141/87mm Hg *H* (04/09/23 4:07 AM) Respiratory Rate [16-30 br/min] 14 br/min *L* (04/09/23 8:00 AM) 21 br/min (04/09/23 6:00 AM) 18 br/min (04/09/23 4:07 AM) Temperature [96.8-100.4 DegF] 99.1 DegF (04/09/23 6:00 AM) 99 DegF (04/09/23 4:00 AM) 99.9 DegF (04/09/23 2:55 AM) Liters per Minute 2 L/min (04/03/23 2:50 PM) 2 L/min (04/03/23 1:19 PM) 2 L/min (04/03/23 10:59 AM) Mode of Delivery (Oxygen) Room air (04/09/23 8:00 AM) Room air (04/09/23 6:00 AM) Room air (04/09/23 4:00 AM) Blood pressure sites Arm, right (04/09/23 8:00 AM) Arm, right (04/09/23 6:00 AM) Arm, right (04/09/23 4:00 AM) Temperature Route Oral (04/09/23 6:00 AM) Oral (04/09/23 4:00 AM) Oral (04/09/23 2:55 AM) Weight Obtained Via Bed scale (04/06/23 7:00 AM) Bed scale (04/05/23 6:25 AM) Bed scale (04/03/23 10:35 PM) EKG study * Event Display: ECG 12-Lead Authored Date: Please click on pdf link to open report * Event Display: ECG 12-Lead Authored Date: Ventricular Rate: 109 BPM Atrial Rate: 109 BPM P-R Interval: 146 ms QRS Duration: 76 ms Q-T Interval: 348 ms QTC Calculation(Bazett): 468 ms P Artemas: 34 degrees R Artemas: -17 degrees T Artemas: 34 degrees Sinus tachycardia Nonspecific ST and T wave abnormality Abnormal ECG When compared with ECG of 24-SEP-2019 11:33, No significant change was found Confirmed by ANGEL ANDRES MD ([id number]) on 04/04/2023 10:49:43 AM [place]: ANGEL ANDRES MD Cardiology * Event Display: Cardiac Rhythm Strips Authored Date: * Event Display: Cardiac Rhythm Strips Authored Date: Hospital Progress note * Anne Denny RN: VERIFY, PERFORM, SIGN Event Display: Progress Note Hospital Authored Date: [id number] Patient: PATRICIA MORENO Age: 47 years Sex: Male : 1975 Associated Diagnoses: None Author: Anne Denny RN Findings Problem Related to Alteration in Psychosocial : Alteration in Psychosocial Function/new 04/09/2023 9:00 EDT Alteration in Psychosocial Related to Acute Alcohol Withdrawal Goals & Outcomes, Psychosocial Psychosocial support will be provided to Pt/S.O. as needed, Pt will identify stressors leading up to event, Pt will state importance of adhering to medication regime, Pt/caregiver will be offered appropriate resources & support, Pt/caregiver will express feelings/needs/fears /concerns, Pt/caregiver will maintain/obtain psychological stability, Pt/caregiver will participate in coping skill counseling, Pt successfully withdraws with minimal side effects, Pt will be free from withdrawal symptoms Interventions, Psychosocial Assess psychosocial needs, Assess readiness to learn needed lifestyle changes, Assess/monitor level of consciousness, Collaborate with provider for psychiatric consult, Evaluate resources & support system available to pt, Offer support; discuss coping strategies, Provide a calm, supportive environment, Provide chances to express concerns/emotions/expectations, Provide info on community resources for education, support, Provide information about illness and recovery, Provide verbal limits if pt's behavior escalates Goals/Interventions, Psychosocial Yes Psychosocial, Problem Start 04/04/2023 4:24 Reviewed Plan with, Psychosocial Patient Patient Progression, Psychosocial Pt progressing according to plan . Narrative/Incidental Patient downgraded to acute level of care. He is A&Ox2 but very redirectable and pleasant with staff. VSS, NSR on the monitor. Patient continues to forget he cannot get up on his own. Bed alarm continues to stay in place and redirection provided. Awaiting his mother to arrive for discharge. Seeflow sheet for full assessment data.. * Brianna De Leon RN: PERFORM, SIGN, VERIFY Event Display: Progress Note Hospital Authored Date: Patient: PATRICIA MORENO Age: 47 years Sex: Male : 1975 Associated Diagnoses: None Author: Brianna De Leon RN Findings Problem Related to Alteration in Psychosocial : Alteration in Psychosocial Function/new 04/09/2023 0:00 EDT Alteration in Psychosocial Related to Acute Alcohol Withdrawal Goals & Outcomes, Psychosocial Psychosocial support will be provided to Pt/S.O. as needed, Pt will identify stressors leading up to event, Pt will state importance of adhering to medication regime, Pt/caregiver will be offered appropriate resources & support, Pt/caregiver will express feelings/needs/fears /concerns, Pt/caregiver will maintain/obtain psychological stability, Pt/caregiver will participate in coping skill counseling, Pt successfully withdraws with minimal side effects, Pt will be free from withdrawal symptoms Interventions, Psychosocial Assess psychosocial needs, Assess/monitor level of consciousness, Offersupport; discuss coping strategies, Provide a calm, supportive environment, Identify complications of chronic alcohol use, Determine pt's stage of withdrawal as per CIWA scale, Minimize stimulation, Offer support to pt/S.O. during acute alcohol withdrawal Goals/Interventions, Psychosocial Yes Psychosocial, Problem Start 04/04/2023 4:24 Reviewed Plan with, Psychosocial Patient Patient Progression, Psychosocial Pt progressing according to plan . Nursing Data Vital Signs : VITAL SIGNS SECTION 04/09/2023 6:00 EDT Temperature 99.1 DegF Temperature Route Oral Pulse Rate 107 bpm H Heart Rate Monitored 102 bpm H Respiratory Rate 21 br/min Systolic Blood Pressure 136 mm Hg Diastolic Blood Pressure 90 mm Hg H Blood pressure sites Arm, right Pulse Pressure 46 mm Hg Oxygen Saturation 98 % Mode of Delivery (Oxygen) Room air 04/09/2023 2:55 EDT Early Warning Score 7.00 04/09/2023 2:55 EDT Temperature 99.9 DegF Temperature Route Oral Pulse Rate 105 bpm H . Narrative/Incidental Pt is a&o to person, place and states it's 2025. SR on the monitor, max temp 99.9. Has mild tremors & beads of sweat visible, more activity tonight and setting off bed alarm a couple times. Is easily redirectable but very forgertful , occassionally requiring reminding he's in the hospital. denies CORDOVA, hallucinations. Frequent rounding completed, bed in low locked position and seizure precauions in place. . * Janay FRANKS, Naomi: PERFORM Event Display: Progress Note Hospital Authored Date: Patient: ??PATRICIA MORENO ? Age:??47 Years?Sex:??Male?:??1975?? Subjective No acute events overnight. Morning labs reviewed. Patient is met at bedside with mother accompanied, he is alert, oriented to self, person, place, situation, not fully to time (know the year but not recall the??month) but can be easily reoriented, overall calm and conversant, following all commands, no evidence of active withdrawal. Ongoing R knee pain but with full ROM in hip, knee and ankle, non-tender no significant effusion. No asterixis or tremor. 25 minutes spent to provide ETOH abstinence counselor aide, explained the serious organ damage it has caused on his body mainly liver, explained detrimental complication of decompensated cirrhosis and limited life expectancy, [facility] to help with alcohol abstinence, patient acknowledged risks of more organ damageeven life-threatening complications from ongoing ETOH use but he declined speaking to a SW or counselor in the community, he is not ready to fully commit to ETOH abstinence, but he is interested in starting medication to help alcohol craving, my concern of his ongoing ETOH use is conveyed to his mother as well who also did not show interest in obtaining additional outpatient help for his alcohol issue. Review of Systems Constitutional:??No weight loss, fever, chills, weakness or fatigue. Cardiovascular:??no chest pain Respiratory:??No shortness of breath, cough or sputum production. Gastrointestinal:??No anorexia, nausea, vomiting or diarrhea. No abdominal pain or blood in stool. Genitourinary:??No burning micturition. No urinary frequency or incontinence. Neurologic:??No headache, dizziness, syncope, unilateral weakness, ataxia, numbness or tingling in the extremities. No change in bowel or bladder control. Musculoskeletal:??R knee pain with active ROM. Objective Measurements?? Weight: 74.3 kg (04/06/23) ?? Vital Signs?? Temperature: 99.1 DegF (04/08/23 10:00:00) Temperature Route: Oral (04/08/23 10:00:00) Pulse Rate:??98 bpm??High (04/08/23 12:00:00) Heart Rate Monitored: 90 bpm (04/08/23 06:00:00) Respiratory Rate: 16 br/min (04/08/23 12:00:00) Systolic Blood Pressure: 114 mm Hg (04/08/23 12:00:00) Diastolic Blood Pressure:??86 mm Hg??High (04/08/23 12:00:00) Blood pressure sites: Arm, right (04/08/23 12:00:00) Pulse Pressure: 28 mm Hg (04/08/23 12:00:00) Oxygen Saturation: 99 % (04/08/23 12:00:00) Mode of Delivery (Oxygen): Room air (04/08/23 12:00:00) Early Warning Score: 4 (04/08/23 12:10:45) ? Pain Scores?? No qualifying data available. ? Intake/Output? 04/03 06:20 04/08 07:00 08 07:00 04/06 07:00 04/05 07:00 ?? 04/08 12:54 04/08 12:54 04/08 06:59 04/07 06:59 04/06 06:59 Intake ? 3930 ?447 ?506 ?607 ? 1366 Output ? 7550 ? 50 ? 1850 ?725 ?900 Net Total ?-3620 ?397 ?-1344 ? -118 ?466 ? Urine Count ?6 ?0 ?0 ?1 ?1 ? Precautions Constant [place] Attacher Seizure Precautions ? Physical Exam Constitutional: Alert, in no acute distress. Head EENT: Extraocular muscle movement intact.??Moist mucous membranes.?? Respiratory: Clear to auscultation. No wheezing or crackles. No use of accessory muscles. Cardiovascular: S1S2 regular. No murmurs, rubs or gallops. Gastrointestinal: Abdomen soft, non-tender, non-distended. Normal bowel sounds. Extremities: No lower extremity pitting??edema. No cyanosis or clubbing. Neurologic: AAOx3, Speech normal. No focal neurological deficits. No asterixis or tremor. Psychiatric: Normal mood and affect _ Inpatient Medications Medications (13) Active SCHEDULED: (8) Acamprosate 333mg EC Tablet (acamprosate 333 mg oral delayed release tablet) ??666 mg, By Mouth, 3 times a day with meals Folic Acid 1 mg Tablet (Folic Acid Tablet) ??1 mg, By Mouth, Daily Multivitamin Tablet ??1 tablet, By Mouth, Daily NaCl 0.9% Flush 3ml (NaCL 0.9% Flush) ??3 mL, IV Push, Every 8 hours Nystatin Powder ??1 application, Topically, 2 times a day Pyridoxine 50 mg Tablet (Pyridoxine Tablet) ??50 mg, By Mouth, Daily Thiamine 100 mg IVPB (Thiamine Inj) ??250 mg 2.5 mL, IVPB, Daily Vitamin B-12 ??1000 mcg Tablet (Vitamin B-12 1000 mcg oral tablet) ??1,000 mcg, By Mouth, Daily CONTINUOUS: (0) PRN: (5) Melatonin 3 mg Tablet (Melatonin Tablet) ??3 mg, By Mouth, Daily at bedtime NaCl 0.9% Flush 3ml (NaCL 0.9% Flush) ??3 mL, IV Push, Every 8 hours OxyCODONE 5 mg IR Tablet (oxyCODONE 5 mg oral tablet) ??5 mg, By Mouth, Every 6 hours Polyethylene Glycol 17 Gm Powder (MiraLax Powder) ??17 Gm 1 pack/packet, By Mouth, Daily Senna 8.6 mg / Docusate 50 mg tablet (Docusate/Senna Tablet) ??1 tablet, By Mouth, 2 times a day ? Results Recent Labs BLOOD COUNT & DIFF WBC 4.8 k/mm3 ()?? 04/08/2023 04:54 RBC 3.20 m/mm3 (Low)?? 04/08/2023 04:54 Hgb 7.8 Gm/dL (Low)?? 04/08/2023 04:54 Hct 26.4 % (Low)?? 04/08/2023 04:54 MCV 82.5 femtoliters ()?? 04/08/2023 04:54 MCH 24.4 pg (Low)?? 04/08/2023 04:54 MCHC 29.5 g/dL (Low)?? 04/08/2023 04:54 Platelet Count 63 k/mm3 (Low)?? 04/08/2023 04:54 RDW-SD 62.3 femtoliters (High)?? 04/08/2023 04:54 MPV 10.2 femtoliters ()?? 04/08/2023 04:54 Nucleated RBC (Automated) 0.0 #/100 WBC'S ()?? 04/08/2023 04:54 Abs. NRBC 0.0 k/mm3 ()?? 04/08/2023 04:54 ?? CHEM GENERAL Sodium 132 mmol/L (Low)?? 04/08/2023 04:54 Potassium 4.4 mmol/L ()?? 04/08/2023 04:54 Chloride 101 mmol/L ()?? 04/08/2023 04:54 Bicarbonate Level 20 mmol/L (Low)?? 04/08/2023 04:54 Anion Gap 11 ()?? 04/08/2023 04:54 Glucose Level 109 mg/dL (High)?? 04/08/2023 04:54 BUN 8 mg/dL ()?? 04/08/2023 04:54 Creatinine-Blood 0.6 mg/dL (Low)?? 04/08/2023 04:54 Estimated GFR Creatinine 120 ML/MIN/1.73 M2 ()?? 04/08/2023 04:54 Calcium 9.3 mg/dL ()?? 04/08/2023 04:54 Phosphorus 3.6 mg/dL ()?? 04/07/2023 06:01 Magnesium 1.7 mg/dL ()?? 04/07/2023 06:01 Protein, Total 7.4 Gm/dL ()?? 04/08/2023 04:54 Albumin 3.3 Gm/dL (Low)?? 04/08/2023 04:54 AG Ratio 0.8 ()?? 04/08/2023 04:54 Alkaline Phosphatase 63 units/L ()?? 04/08/2023 04:54 AST (SGOT) 64 units/L (High)?? 04/08/2023 04:54 ALT (SGPT) 18 units/L ()?? 04/08/2023 04:54 Bilirubin, Total 1.4 mg/dL (High)?? 04/08/2023 04:54 ? Blood Glucose Trend Glucose Level:??109 mg/dL??High (04/08/23 04:54:00) ? Assessment/Plan Chief Complaint: found sleeping passenger side, PD called EMS, ?beer in center console, admitted toa couple beers ?? ETOH use disorder, severe with dependence?? Severe ETOH withdrawal, resolved -has not required Ativan for 36 hours clinically oriented no evidence of active withdrawal, stop CIWA protocol, discontinue software engineer intern today if no impulsive behavior -continue thiamine/folic acid/MW -extended alcohol abstinence counselor aide given, patient has adequate insight of his issue but refused most help offered, he indeed agreed medication to help reduce alcohol craving, given liver dysfunction will start acamprosate (acknowledging that this may not be as effective due to ongoing alcohol use) ?? SIRS, resolved -evidenced by fever and tachycardia, exam, brown CT and blood culture negative for foci of infection monitor off abx ?? Syncope -presented before admission likely due to ETOH intoxication no recurence, tele no significant arrhythmia ?? 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 Pancytopenia 2/2??hypersplenism and ETOH bone marrow toxicity, stable -monitor for now ?? Discussed with RN/CM; Tele reviewed: [facility] ?? A total of 25 minutes spent on alcohol abstinence counselor aide??on top of a separate 35 minutes on patient exam, chart review, medical decision making and documentation. ?? VTE Prophylaxis:??SCD ?VTE Prophylaxis Assessment:??VTE Prophylaxis Ordered ?? Code Status:??Full ?Order Code Status:??Code Status Ordered ?? Ongoing Medical Necessity:??Encourage out of bed activity, if no ongoing signs of ETOH withdrawal will stop software engineer intern this afternoon and discharge home tomorrow ?? Discharge Planning:??Home with family support ?Order Date/Time ??Order Action ??Order Name ??Order Detail ??04/08/2023 12:52 ??Discontinue ??EtOH Intoxication (ED Only) ??04/03/23 4:35:00 EDT ??04/08/2023 12:51 ??Discontinue ??Call MD ??If patient not responding to alcohol withdrawal syndrome treatment., 04/03/23 14:08:00 EDT ??04/08/2023 12:51 ??Discontinue ??Call MD ??If IV and oral doses are ordered for clarification., 04/03/23 14:08:00 EDT ??04/08/2023 12:51 ??Discontinue ??Call MD ??If CIWA AR score is greater than 13 for 3 consecutive times page and consider rapid response team (HEAD TRIMMER) consultation., 04/03/23 14:08:00 EDT ??04/08/2023 12:51 ??Discontinue ??Call MD ??If patient mental status worsens and they are unable to take oral medications please page covering provider and suggest patient reassessment., 04/03/23 14:08:00 EDT ??04/08/2023 12:51 ??Discontinue ??Call MD ??If the CIWA-AR scale increases by 3 or more., 04/03/23 14:08:00 EDT ??04/08/2023 12:51 ??Discontinue ??Call MD ??If the CIWA-AR scale increases by 3 or more., 04/03/23 6:10:00 EDT ??04/08/2023 12:51 ??Discontinue ??Call MD ??If patient not responding to alcohol withdrawal syndrome treatment., 04/03/23 6:10:00 EDT ??04/08/2023 12:51 ??Discontinue ??Call MD ??If CIWA AR score is greater than 13 for 3 consecutive times page and consider rapid response team (HEAD TRIMMER) consultation., 04/03/23 6:10:00 EDT ??04/08/2023 12:51 ??Discontinue ??CIWA - AR Assessment ??NURSING: See order comment for instructions, 04/03/23 6:10:00 EDT ??04/08/2023 12:51 ??Discontinue ??CIWA - AR Assessment ??NURSING: See order comment for instructions, 04/03/23 14:08:00 EDT ??04/08/2023 12:51 ??Discontinue ??Lorazepam 2 mg Inj Syringe ??2 mg, IV Push Slowly, Every 2 hours, PRN: Other ??04/08/2023 12:51 ??Discontinue ??Lorazepam 2 mg Inj Syringe ??2 mg, IV Push Slowly, Every hour, PRN: Other ??04/08/2023 12:51 ??Discontinue ??Haloperidol Lactate 5 mg/mL Inj (1 mL) ??1 mg, 0.2 mL, IV Push Slowly, Every 6 hours, PRN: Other ??04/08/2023 12:51 ??Discontinue ??Lorazepam 2 mg Inj Syringe ??1 mg, IV Push Slowly, Every 2 hours, PRN: Other ??04/08/2023 11:16 ??Order ??Acamprosate 333mg EC Tablet ??666 mg, By Mouth, 3 times a day with meals ??04/08/2023 07:46 ??Order ??Change AttendingMD/DO ??Naomi Nunez MD, 04/08/23 7:46:00 EDT ??04/08/2023 07:46 ??Discontinue ??Change AttendingMD/DO ??Jose FRANKS, Jose Kevin, 04/04/23 7:18:00 EDT ? Note * Anne Denny RN: PERFORM Event Display: Discharge/Transfer Note Hospital Authored Date: Nursing Discharge Note Entered On: 04/09/2023 10:16 EDT Performed On: 04/09/2023 10:15 EDT by Anne Denny RN Nursing Discharge Note 2 Discharge Time : 04/09/2023 10:15 EDT Discharge Level of Care at Discharge : Home/Retirement/Foster Care Patient Left Unit Via : Ambulatory Patient Accompanied Off Unit with : Parent DC Instructions Provided & Signed by Pt : Yes Patient Understands D/C Instructions : Yes Patient Instructions Discharge Signed : Yes Discharge Comments : IV removed, catheter intact Did Pt have Specialty Bed or Wound Vac : No Anne Denny RN - 04/09/2023 10:15 EDT * Naomi Nunez MD: MODIFY, MODIFY, PERFORM Event Display: Discharge/Transfer Note Hospital Authored Date: [id number] Patient: ??PATRICIA MORENO ? Age:??47 Years?Sex:??Male?:??1975?? Patient Information Discharge Location: [facility] Primary Care Physician: Ivette FRANKS, [facility] Admit Date/Time: 04/03/23 06:20 Discharge Disposition Discharge Disposition: Home with Home Health Discharge Diagnosis Alcohol intoxication (F10.929) Alcohol use disorder, severe, dependence (F10.20) BRBPR (bright red blood per rectum) (K62.5) Fever (R50.9) Hypokalemia (E87.6) Hypomagnesemia (E83.42) Knee pain (M25.569) Pancytopenia (D61.818) Syncope (R55) Systemic inflammatory response syndrome (SIRS) (R65.10) Tachycardia (R00.0) Withdrawal seizures (F19.939) ?? _ Discharge Medications Acamprosate (acamprosate 333 mg oral delayed release tablet)?666?Milligram?By Mouth?3 times a day with meals Cyanocobalamin (Vitamin B-12 1000 mcg oral tablet)?1,000?Microgram?1?tablet?By Mouth?Daily Folic Acid (folic acid 1 mg oral tablet)?1?Milligram?1?tablet?By Mouth?Daily?for 90?Days Multivitamin (multivitamin Multiple Vitamins oral tablet)?1?tab(s)?By Mouth?Daily Thiamine (thiamine 100 mg oral tablet)?100?Milligram?1?tablet?By Mouth?Daily?for 90?Days ? Vaccinations and Immunoprophylaxis influenza virus vaccine, inactivated: 0.5 mL (09/25/19 08:21:00) pneumococcal 23-valent vaccine: 0.5 mL (09/25/19 08:21:00) tetanus-diphtheria toxoids (Td): 0.05 mL (09/07/07 11:50:00) ? Durable Medical Equipment Ambulatory devices needed: Walker (04/08/23) ? Medications Started Thiamine/folic acid/MW Acamprosate Medications Discontinued N/A Doses Changed N/A Allergies Allergies ?(Active and Proposed Allergies Only) NKA? (Severity: Unknown severity, Onset: Unknown) ? PCP Follow-Up/Heads-Up ETOH abstinence referral GI referral for cirrhosis Hospital Course Patient was admitted for a query syncopal episode vs. ETOH intoxication, he was admitted for ETOH withdrawal, he had intermittent fever spikes with infectious workup negative hence suspect it is related to withdrawal, on CT there is evidence of portal hypertension likely from liver cirrhosis due toETOH use. He has been off benzo for 48 hours and not scoring on CIWA, fully alert and oriented and hemodynamically stable, tolerate diet, he is ambulatory but slightly unsteady need stand by walking assistance, he refused rehab upfront and PT eval is pending, but he insists of going home and would not want to wait that, explained his risk of fall and injury he acknowledged, he agreed to home PT and CM was consulted with referral sent, extensive ETOH abstinence counselor aide provided but patient refused to speak to addiction consult or SW regarding options, he acknowledged detrimental consequences of going ETOH use, and agreed to receive a Rx for acamprosate. He will be discharged home today with home service referral pending. Objective Assessment and Plan ?? ETOH use disorder, severe with dependence?? Severe ETOH withdrawal, resolved -not requiring prn Ativan based on CIWA for 48 hours, fully aleret and oriented -continue thiamine/folic acid/MW -extended alcohol abstinence counselor aide given, patient has adequate insight of his issue but refused most help offered, he indeed agreed medication to help reduce alcohol craving, given liver dysfunction will start acamprosate (acknowledging that this may not be as effective due to ongoing alcohol use) ?? SIRS, resolved -evidenced by fever and tachycardia, exam, brown CT and blood culture negative for foci of infection,likely related to ETOH withdrawal, tick panel??PCR negative??monitor off abx ?? Syncope -presented before admission likely due to ETOH intoxication no recurrence, tele no significant arrhythmia ?? 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 Pancytopenia 2/2??hypersplenism and ETOH bone marrow toxicity, stable ?? Discussed with RN/CM; Tele reviewed: [facility], ST. ?? Measurements?? Weight: 74.3 kg (04/06/23) ?? Vital Signs?? Temperature: 99.1 DegF (04/09/23 06:00:00) Temperature Route: Oral (04/09/23 06:00:00) Pulse Rate:??107 bpm??High (04/09/23 06:00:00) Heart Rate Monitored:??102 bpm??High (04/09/23 06:00:00) Respiratory Rate:??14 br/min??Low (04/09/23 08:00:00) Systolic Blood Pressure: 115 mm Hg (04/09/23 08:00:00) Diastolic Blood Pressure:??91 mm Hg??High (04/09/23 08:00:00) Blood pressure sites: Arm, right (04/09/23 08:00:00) Pulse Pressure: 24 mm Hg (04/09/23 08:00:00) Oxygen Saturation: 99 % (04/09/23 08:00:00) Mode of Delivery (Oxygen): Room air (04/09/23 08:00:00) Early Warning Score: 5 (04/09/23 08:02:25) ? Perfusion Assessment Capillary Refill: < 3 seconds (04/08/23 20:46:00) Cardiac Rhythm: Normal sinus rhythm, Sinus tachycardia (04/09/23 08:14:00) Cardiovascular: WNL except (04/09/23 08:14:00) Cardiovascular Assessment Status: Unchanged from recorder's assessment (04/09/23 04:00:00) Dorsalis Pedis Pulse, Left: Normal (04/09/23 08:14:00) Dorsalis Pedis Pulse, Right: Normal (04/09/23 08:14:00) Heart Rhythm: Regular (04/09/23 08:14:00) Heart Sounds: S1, S2 (04/08/23 20:46:00) Nail Bed Color, Fingers: [place] (04/08/23 20:46:00) Nail Bed Color, Toes: [place] (04/08/23 20:46:00) Radial Pulse, Left: Normal (04/09/23 08:14:00) Radial Pulse, Right: Normal (04/09/23 08:14:00) Skin Temperature Lower Extremities: Warm (04/08/23 20:46:00) Skin Temperature Upper Extremities: Warm (04/08/23 20:46:00) ? Pain Scores?? No qualifying data available. ? Ventilator Settings?? No qualifying data available. ? Intake/Output? 04/03 06:20 08 07:00 04/08 07:00 04/07 07:00 04/06 07:00 ?? 04/09 09:47 08 09:47 04/09 06:59 04/08 06:59 04/07 06:59 Intake ? 4967 ?577 ?907 ?506 ?607 Output ? 9135 ?310 ? 1325 ? 1850 ?725 Net Total ?-4168 ?267 ? -418 ?-1344 ? -118 ? Urine Count ?5 ?0 ?0 ?0 ?1 ? Precautions Seizure Precautions ? Timi Coma Scale Timi Coma Score: 14 (04/06/23 20:10:00) Motor Response-Adult: Obeys commands (04/06/23 20:10:00) Response Eye Opening: Spontaneously (04/06/23 20:10:00) Verbal Response-Adult: Disoriented and converses (04/06/23 20:10:00) ?? Basic ADLs Activity Assistance: Two person assistance (04/06/23) Ambulatory devices needed: Walker (04/08/23) Feeding Assistance: Independent (04/09/23) Hygiene: Total, Partial bath, [place]aphne care, Skin care, Other: [place] catheter changed and linen change (04/08/23) ? Mobility & Ambulation Level Mobility & Ambulation Level Activity Assistance: Two person assistance (04/06/23) Activity Status ADL: Reposition every 2 hours (04/06/23) Ambulation Patient Effort: Poor (04/08/23) Ambulation Patient Response: Did not tolerate well (04/08/23) Ambulatory devices needed: Walker (04/08/23) ?? Therapeutic Activity Therapeutic Activities/Mobility/Balance?? No qualifying data available. ?? . Physical Exam Constitutional: Alert, in no acute distress. Head EENT: Extraocular muscle movement intact.??Moist mucous membranes.?? Respiratory: Clear to auscultation. No wheezing or crackles. No use of accessory muscles. Cardiovascular: S1S2 regular. No murmurs, rubs or gallops. Gastrointestinal: Abdomen soft, non-tender, non-distended. Normal bowel sounds. Genitourinary: No CVA tenderness. Extremities: No lower extremity pitting??edema. No cyanosis or clubbing. Neurologic: AAOx3, Speech normal. No focal neurological deficits. Cautious gait with standby assistance. Psychiatric: Normal mood and affect Pending Results Add On Lab Order ordered on 04/03/2023 Add On Lab Order ordered on 04/04/2023 Blood Culture ordered on 04/04/2023 Blood Culture #2 ordered on 04/04/2023 Hold Lavender Tube (BB) ordered on 04/03/2023 Transfuse Platelets ordered on 04/05/2023 Transfuse RBCs ordered on 04/03/2023 Type and Screen, Use Hold Lavender ordered on 04/03/2023 Patient Education Titles Acamprosate Delayed Release Oral Tablet?? Discharge Instructions for Liver Cirrhosis?? Understanding Alcohol Use Disorder (AUD)?? Follow-Up Appointments Added Follow Up ?Time Frame ?Comments Ivette FRANKS, Gee?1 to 2 weeks Patient Instructions You are admitted for severe alcohol withdrawal not resolved, please start acamprosate it may help lower craving for alcohol use, please follow up with primary care provider for refill and obtain moreresources to help with alcohol abstinence; ?? Please obtain a gastroenterology referral for liver cirrhosis; ?? Follow up with primary care provider within 1-2 weeks; ?? Please refrain from driving or handle heavy machinery till you are cleared to resume work by reassessment from primary care provider; ?? Return to nearest emergency room or call 911 if you experience fever T>100.4F, chill, chest painlasts longer than 10 minutes, shortness of breathing with minimal exertion, worsening or more constant abdominal pain, nausea/vomiting, food intolerance, bloody or tarry stool, extreme fatigue or dizziness, or other severe and/or persistent symptoms. Post Discharge Care Diet: Cardiac diet Activity: Ambulate with assistance ??3 times a day ??unless otherwise specified Code Status: ?? Full Resuscitation Condition: Stable Prognosis: Fair Home Health Face to Face *Denotes mandatory narayan ?? *I certify that this patient is under my care and that I or an allowed non- physician working with me had a face to face encounter with the patient on this date:??04/09/2023 09:48 ?? *The encounter with the patient was in whole, or in part, for the following medical condition, which is the primary diagnosis(es) for home health care:??Alcohol intoxication (F10.929) Alcohol use disorder, severe, dependence (F10.20) BRBPR (bright red blood per rectum) (K62.5) Fever (R50.9) Hypokalemia (E87.6) Hypomagnesemia (E83.42) Knee pain (M25.569) Pancytopenia (D61.818) Syncope (R55) Systemic inflammatory response syndrome (SIRS) (R65.10) Tachycardia (R00.0) Withdrawal seizures (F19.939) ? *Select the indications for the discipline/s that are being arranged for this patient. Nursing (select all that apply): [_] None [_] Medication management (reconciliation, teaching)?? [_] Chronic disease management?? [_] Wound care and treatment?? [_] Home safety evaluation [_] Administer SQ/IM/IV medications?? [_] Cath care?? [_] Drain care?? [_] Trach or GT care?? Other _ Occupation Therapy (select all that apply): [_] None [_] ADL Management [_] Fall prevention training [_] Energy conservation [_] Cognitive training Other _ Physical Therapy (select all that apply): [_] None [*] Functional mobility training [_] Home exercise program to strengthen [_] Increase ROM?? [*] Falls prevention training [_] Home maintenance program for chronic disease Other _ Speech Therapy (select all that apply): [_] None [_] Swallow evaluation and training [_] Speech and language training [_] Cognitive training to process, organize, and/or recall information Other _ ? *Homebound due to (select all that apply): [*] Inability to leave home without assistance/supervision [_] Inability to ambulate without assistance [_] Pain [*] Decreased strength and endurance [*] Unsteady gait [_] Severe SOB and fatigue [_] Impaired transfers [_] Inability to negotiate stairs [_] Limited weight bearing [_] Mental status change? *Physician Signature:??NAOMI NUNEZ ?? *By signing this, I certify that I have personally evaluated the patient and agree with the findings and recommendations as documented above. ? Results Discharge Labs BLOOD BANK Blood Type O Positive ()?? 04/03/2023 06:12 Antibody Screen Negative ()?? 04/03/2023 06:12 PLT Unit ID [id number] ()?? 04/05/2023 09:50 PLT Available PT ()?? 04/05/2023 09:50 RBC Unit ID [id number] ()?? 04/03/2023 06:12 RBC Available PT ()?? 04/03/2023 06:12 ?? BLOOD COUNT & DIFF WBC 4.8 k/mm3 ()?? 04/08/2023 04:54 RBC 3.20 m/mm3 (Low)?? 04/08/2023 04:54 Hgb 7.8 Gm/dL (Low)?? 04/08/2023 04:54 Hct 26.4 % (Low)?? 04/08/2023 04:54 MCV 82.5 femtoliters ()?? 04/08/2023 04:54 MCH 24.4 pg (Low)?? 04/08/2023 04:54 MCHC 29.5 g/dL (Low)?? 04/08/2023 04:54 Platelet Count 63 k/mm3 (Low)?? 04/08/2023 04:54 RDW-SD 62.3 femtoliters (High)?? 04/08/2023 04:54 MPV 10.2 femtoliters ()?? 04/08/2023 04:54 Nucleated RBC (Automated) 0.0 #/100 WBC'S ()?? 04/08/2023 04:54 Abs. NRBC 0.0 k/mm3 ()?? 04/08/2023 04:54 Abs. Neut 1.4 k/mm3 ()?? 04/03/2023 04:26 Abs. Lymph 0.9 k/mm3 ()?? 04/03/2023 04:26 Abs. [place] 0.3 k/mm3 (Low)?? 04/03/2023 04:26 Abs. Eo 0.0 k/mm3 ()?? 04/03/2023 04:26 Abs. Baso 0.0 k/mm3 ()?? 04/03/2023 04:26 Neut % 52.4 % ()?? 04/03/2023 04:26 Lymph % 35.0 % ()?? 04/03/2023 04:26 [place] % 10.6 % (High)?? 04/03/2023 04:26 Eos % 0.8 % ()?? 04/03/2023 04:26 Baso % 0.8 % ()?? 04/03/2023 04:26 Peripheral Blood Smear Review Interp. Reviewed by pathologist. ()?? 04/03/2023 04:26 Retic Count 2.7 % (High)?? 04/03/2023 04:26 Retic Count Corrected 1.3 % ()?? 04/03/2023 04:26 Retic Production Index 0.7 % (Low)?? 04/03/2023 04:26 Imm Gran 0.4 % ()?? 04/03/2023 04:26 Abs. Imm Gran 0.0 k/mm3 ()?? 04/03/2023 04:26 ?? CARDIAC Nt-Probnp <36 pg/mL ()?? 04/03/2023 02:50 High Sensitivity Troponin (HSTnT) 29 ng/L (High)?? 04/03/2023 14:25 ?? CHEM GENERAL Sodium 132 mmol/L (Low)?? 04/08/2023 04:54 Potassium 4.4 mmol/L ()?? 04/08/2023 04:54 Chloride 101 mmol/L ()?? 04/08/2023 04:54 Bicarbonate Level 20 mmol/L (Low)?? 04/08/2023 04:54 Anion Gap 11 ()?? 04/08/2023 04:54 Glucose Level 109 mg/dL (High)?? 04/08/2023 04:54 BUN 8 mg/dL ()?? 04/08/2023 04:54 Creatinine-Blood 0.6 mg/dL (Low)?? 04/08/2023 04:54 Estimated GFR Creatinine 120 ML/MIN/1.73 M2 ()?? 04/08/2023 04:54 Calcium 9.3 mg/dL ()?? 04/08/2023 04:54 Calcium, Ionized pH Corrected 1.08 mmol/L (Low)?? 04/03/2023 02:50 Phosphorus 3.6 mg/dL ()?? 04/07/2023 06:01 Magnesium 1.7 mg/dL ()?? 04/07/2023 06:01 Protein, Total 7.4 Gm/dL ()?? 04/08/2023 04:54 Albumin 3.3 Gm/dL (Low)?? 04/08/2023 04:54 AG Ratio 0.8 ()?? 04/08/2023 04:54 LDH 263 units/L (High)?? 04/03/2023 04:27 Alkaline Phosphatase 63 units/L ()?? 04/08/2023 04:54 Lipase 48 units/L ()?? 04/04/2023 10:18 AST (SGOT) 64 units/L (High)?? 04/08/2023 04:54 ALT (SGPT) 18 units/L ()?? 04/08/2023 04:54 Bilirubin, Total 1.4 mg/dL (High)?? 04/08/2023 04:54 Bilirubin, Direct 1.0 mg/dL (High)?? 04/04/2023 00:46 Bilirubin, Indirect 1.1 mg/dL (High)?? 04/04/2023 00:46 Vitamin B12 Level 1570 pg/mL (High)?? 04/05/2023 05:57 Lactate 2.0 mmol/L ()?? 04/04/2023 10:18 Uric Acid 3.4 mg/dL ()?? 04/05/2023 08:30 ? COAG INR 1.3 (High)?? 04/04/2023 00:45 Protime (PT) 13.6 seconds (High)?? 04/04/2023 00:45 APTT 27.5 seconds ()?? 04/03/2023 02:50 D-Dimer 0.88 mg/L FEU ()?? 04/05/2023 08:30 ?? ENDOCRINE/TUMOR MARKER TSH 1.91 uIU/mL ()?? 04/03/2023 02:50 ? HEME OTHER Hold Lavender Top SPECIMEN DISCARDED AFTER 24 HOURS. ()?? 04/04/2023 10:18 ? IMMUNOLOGY GENERAL Haptoglobin 103 mg/dL ()?? 04/03/2023 04:27 Anti-Nuclear Antibody Screen NEGATIVE ()?? 04/05/2023 15:35 ?? MISC. CHEMISTRY Ammonia, Venous 35 ??mole/L ()?? 04/03/2023 06:30 Hold Green Top SPECIMEN DISCARDED AFTER 1 WEEK ()?? 04/05/2023 08:30 Procalcitonin 0.06 ng/mL ()?? 04/05/2023 15:35 ? SEROLOGY INF DISEASE Anaplasma PCR Not detected (N)?? 04/05/2023 15:35 Babesia PCR Not detected (N)?? 04/05/2023 15:35 Ehrlichia PCR Not detected (N)?? 04/05/2023 15:35 B Miyamotoi PCR Not detected (N)?? 04/05/2023 15:35 B. Burgdorferi PCR, Blood Not detected (N)?? 04/05/2023 15:35 ? TOXICOLOGY/TDM Ethanol, Serum or Plasma 396 mg/dL (Abnormal)?? 04/03/2023 02:50 ? UA/URINALYSIS Appear/Color, Urine YELLOW ()?? 04/03/2023 14:37 Specific [place], Urine 1.012 ()?? 04/03/2023 14:37 pH, Urine 6.5 ()?? 04/03/2023 14:37 Albumin, Urine 1+ (Abnormal)?? 04/03/2023 14:37 Glucose, Urine NEGATIVE ()?? 04/03/2023 14:37 Ketones, Urine NEGATIVE ()?? 04/03/2023 14:37 Bilirubin, Urine NEGATIVE ()?? 04/03/2023 14:37 Hemoglobin, Urine NEGATIVE ()?? 04/03/2023 14:37 Nitrite, Urine NEGATIVE ()?? 04/03/2023 14:37 Leukocyte, Urine NEGATIVE ()?? 04/03/2023 14:37 Urobilinogen 2 mg/dL (Abnormal)?? 04/03/2023 14:37 WBC's, Urine <1 /HPF ()?? 04/03/2023 14:37 RBC's, Urine 1 /HPF ()?? 04/03/2023 14:37 Bacteria SLIGHT HPF (Abnormal)?? 04/03/2023 14:37 Hold Urine Culture Testing available 48 hours from time of collection. ()?? 04/03/2023 14:37 ? VIROLOGY COVID-19 by RT-PCR NEGATIVE ()?? 04/03/2023 01:44 COVID-19 PCR Specimen Source NASAL ()?? 04/05/2023 16:15 COVID-19 PCR Result NEGATIVE ()?? 04/05/2023 16:15 ? 35??minutes spent on discharge * Denisha RODRIGUEZ, Anne: PERFORM Event Display: Patient Education/Instruction Authored Date: [id number] Inpatient Adult Discharge Instructions [place] [id number] Name: PATRICIA MORENO : 1975 Visit: 04/03/2023 06:20:00 Current Date: 04/09/2023 09:58 Account: [id number] Inpatient Adult Discharge Instructions We would like to thank you for allowing us to assist you with your healthcare needs. The following includes patient education materials and information regarding your injury/illness. Our entire staffstrives to provide an excellent experience for our patients and their families. PLEASE ENSURE YOU FOLLOW-UP PER THE INSTRUCTIONS BELOW! ?? YOUR OPINION IS IMPORTANT TO US! Please complete the survey you may receive by mail or email. Your feedback will be used to make improvements to the healthcare experiences of our patients and their families. Surveys are administered by [employer]. ?? If further treatment with your primary care physician or another doctor is recommended, it is important for you to keep the appointment. Call your primary care physician or return to the Emergency Department immediately if your condition worsens, fails to improve, or new symptoms develop. If you need to find a doctor, you can call [facility] [employer] for a referral at [phone] or toll free at [phone] or log in to [email or web address].. ?? You can view and manage your care through the patient portal or by using a health care cristhian of your choosing. [employer] is a website that allows you to securely view your medical information including your hospital discharge summary, office visit summaries, medications and follow-up visits. You can also request appointments, renew medications, and request access to your medical information using a health care cristhian of your choosing, or just ask a question. You can enroll at [email or web address] or register during your next office visit. You have been discharged from [facility], Patient Care Unit: SW5. If you have any questions regarding these instructions after you leave, please call us and we will be happy to assist you. [facility] Your Care Team Attending Physician Naomi Nunez MD Discharging Providers Naomi Nunez MD Reason for Admission found sleeping passenger side, PD called EMS, ?beer in center console, admitted to a couple beers Your Diagnosis Pancytopenia Alcohol use disorder, severe, dependence Syncope Alcohol intoxication Withdrawal seizures Systemic inflammatory response syndrome (SIRS) Tachycardia Fever Hypokalemia Hypomagnesemia Knee pain BRBPR (bright red blood per rectum) Tests Performed Below is a partial list of the tests performed during your hospitalization. You may have had other tests and procedures not included in this list. Please discuss all test results with your provider. Alcohol Level Ammonia Venous SHAUNA Screen B12 Vitamin Level Basic Metabolic Panel Calcium Ionized CBC CBC w/ Differential Comprehensive Metabolic Panel COVID-19 (2019 Novel Coronavirus) PCR COVID-19 (Novel Coronavirus), Rapid PCR D Dimer HAPTOGLOBIN Hepatic Function Panel High??Sensitivity??Troponin T HOLD GREEN TUBE HOLD LAVENDER TUBE INR Lactic Acid Level LDH Lipase Magnesium Level Northeast Tick PCR Panel PERIPHERAL BLOOD SMEAR REVIEW Phosphorus Level ProBNP Procalcitonin Level PTT RETICULOCYTE COUNT Troponin T, High Sensitivity TSH with T4 Reflex (Adults Only) Uric Acid Urinalysis w/hold for Urine Culture Chest CT W/ Contrast CT Abd/Pelvis W/ IV + Oral Contrast CT Head/Brain W/O Contrast Knee 1 or 2 Views Right US Doppler Ext Lower Venous Bilat US Liver/Spleen XR Chest 2 Views Frontal and Lat Primary Care Provider Ivette FRANKS, [facility] Advance Directive Health Care Proxy on File Yes - Health Care Proxy Discharge Vitals Temperature: 99.1 DegF Weight: 74.3 kg Pulse Rate:??107 bpm??High ?? Respiratory Rate:??14 br/min??Low ?? Systolic Blood Pressure: 115 mm Hg ?? Diastolic Blood Pressure:??91 mm Hg??High ?? Oxygen Saturation: 99 % ?? Studies Pending All tests and labs ordered during this hospital stay have been completed unless listed below. Please discuss all pending results with your provider listed above in these instructions. ?? Add On Lab Order Blood Culture Blood Culture #2 Hold Lavender Tube (BB) Transfuse Platelets Transfuse RBCs Type and Screen, Use Hold Lavender What to do next Instructions From Your Doctor You are admitted for severe alcohol withdrawal not resolved, please start acamprosate it may help lower craving for alcohol use, please follow up with primary care provider for refill and obtain moreresources to help with alcohol abstinence; ?? Please obtain a gastroenterology referral for liver cirrhosis; ?? Follow up with primary care provider within 1-2 weeks; ?? Please refrain from driving or handle heavy machinery till you are cleared to resume work by reassessment from primary care provider; ?? Return to nearest emergency room or call 911 if you experience fever T>100.4F, chill, chest painlasts longer than 10 minutes, shortness of breathing with minimal exertion, worsening or more constant abdominal pain, nausea/vomiting, food intolerance, bloody or tarry stool, extreme fatigue or dizziness, or other severe and/or persistent symptoms. Discharge Orders Diet:??Cardiac diet Activity:??Ambulate with assistance 3 times a day unless otherwise specified Code Status:?? Full Resuscitation Condition:??Stable Prognosis:??Fair You Need to Schedule the Following Appointments Follow Up with??Ivette FRANKS, [place] When:??Within 1 to 2 weeks Where: [address] [place] [id number]- Discharge Medications PATRICIA MORENO :1975 Visit Date:04/03/2023 Medications: Please continue your medications until treatment is completed or stopped by your provider. Medications not listed below should be discontinued. Discuss any questions related to medications with your provider. What How Much When Instructions Next Dose New Acamprosate (acamprosate 333 mg oral delayed release tablet) 666 Milligram Oral 3 times a day with meals Refills: 3 Pickup at [facility] 3 Noon Today New Multivitamin (multivitamin Multiple Vitamins oral tablet) 1 tab(s) Oral Daily Pickup at [place] [address] Tomorrow Morning New Thiamine (thiamine 100 mg oral tablet) 1 tab(s) Oral Daily Duration: 90 Days Pickup at [place] [address] Tomorrow Morning Changed Folic Acid (folic acid 1 mg oral tablet) 1 tab(s) Oral Daily Duration: 90 Days Pickup at [place] [address] Tomorrow Morning Unchanged Cyanocobalamin (Vitamin B-12 1000 mcg oral tablet) 1 tab(s) Oral Daily Tomorrow Morning Pharmacy Information [facility] 3: [address], [place] [id number] [phone] Test Results Below is a partial list of the most recent Laboratory test results done prior to this discharge. You may have had other tests and procedures not included in this list. Please discuss all test resultswith your provider. Antibody Screen - Negative (04/03/2023) Blood Type - O Positive (04/03/2023) PLT Available - PT (04/05/2023) PLT Unit ID - [id number] (04/05/2023) RBC Available - PT (04/03/2023) RBC Unit ID - [id number] (04/03/2023) Alcohol Level (04/03/2023) ???Ethanol, Serum or Plasma - 396 mg/dL Ammonia Venous (04/03/2023) ???Ammonia, Venous - 35 ??mole/L SHAUNA Screen (04/05/2023) ???Anti-Nuclear Antibody Screen - NEGATIVE B12 Vitamin Level (04/05/2023) ???Vitamin B12 Level - 1570 pg/mL Basic Metabolic Panel (04/04/2023) ???Sodium - 138 mmol/L???Potassium - 3.2 mmol/L???Chloride - 101 mmol/L???Bicarbonate Level - 22 mmol/L???Anion Gap - 15???Glucose Level - 100 mg/dL???BUN - 4 mg/dL???Creatinine-Blood - 0.4 mg/dL???Estimated GFR Creatinine - 133 ML/MIN/1.73 M2???Calcium - 8.8 mg/dL Calcium Ionized (04/03/2023) ???Calcium, Ionized pH Corrected - 1.08 mmol/L CBC (04/08/2023) ???WBC - 4.8 k/mm3???RBC - 3.20 m/mm3???Hgb - 7.8 Gm/dL???Hct - 26.4 %???MCV - 82.5 femtoliters???MCH - 24.4 pg???MCHC - 29.5 g/dL???Platelet Count - 63 k/mm3???RDW-SD - 62.3 femtoliters???MPV - 10.2femtoliters???Nucleated RBC (Automated) - 0.0 #/100 WBC'S???Abs. NRBC - 0.0 k/mm3 CBC w/ Differential (04/03/2023) ???WBC - 2.6 k/mm3???RBC - 2.72 m/mm3???Hgb - 6.2 Gm/dL???Hct - 21.8 %???MCV - 80.1 femtoliters???MCH - 22.8 pg???MCHC - 28.4 g/dL???Platelet Count - 14 k/mm3???RDW-SD - 59.3 femtoliters???MPV - NOT MEASURED???Nucleated RBC (Automated) - 0.0 #/100 WBC'S???Abs. NRBC - 0.0 k/mm3???Abs. Neut - 1.4 k/mm 3???Abs. Lymph - 0.9 k/mm3???Abs. [place] - 0.3 k/mm3???Abs. Eo - 0.0 k/mm3???Abs. Baso - 0.0 k/mm3???Neut % - 52.4 %???Lymph % - 35.0 %???[place] % - 10.6 %???Eos % - 0.8 %???Baso % - 0.8 %???Imm Gran - 0.4 %???Abs. Imm Gran - 0.0 k/mm3 Comprehensive Metabolic Panel (04/08/2023) ???Sodium - 132 mmol/L???Potassium - 4.4 mmol/L???Chloride - 101 mmol/L???Bicarbonate Level - 20 mmol/L???Anion Gap - 11???Glucose Level - 109 mg/dL???BUN - 8 mg/dL???Creatinine-Blood - 0.6 mg/dL???Estimated GFR Creatinine - 120 ML/MIN/1.73 M2???Calcium - 9.3 mg/dL???Protein, Total - 7.4 Gm/dL???Alb umin - 3.3 Gm/dL???AG Ratio - 0.8???Alkaline Phosphatase - 63 units/L???AST (SGOT) - 64 units/L???ALT (SGPT) - 18 units/L???Bilirubin, Total - 1.4 mg/dL COVID-19 (2019 Novel Coronavirus) PCR (04/05/2023) ???COVID-19 PCR Specimen Source - NASAL???COVID-19 PCR Result - NEGATIVE COVID-19 (Novel Coronavirus), Rapid PCR (04/03/2023) ???COVID-19 by RT-PCR - NEGATIVE D Dimer (04/05/2023) ???D-Dimer - 0.88 mg/L FEU HAPTOGLOBIN (04/03/2023) ???Haptoglobin - 103 mg/dL Hepatic Function Panel (04/04/2023) ???Protein, Total - 7.5 Gm/dL???Albumin - 3.1 Gm/dL???Alkaline Phosphatase - 59 units/L???AST (SGOT) - 84 units/L???ALT (SGPT) - 15 units/L???Bilirubin, Total - 2.1 mg/dL???Bilirubin, Direct - 1.0 mg/dL???Bilirubin, Indirect - 1.1 mg/dL High??Sensitivity??Troponin T (04/03/2023) ???High Sensitivity Troponin (HSTnT) - 31 ng/L HOLD GREEN TUBE (04/05/2023) ???Hold Green Top - SPECIMEN DISCARDED AFTER 1 WEEK HOLD LAVENDER TUBE (04/04/2023) ???Hold Lavender Top - SPECIMEN DISCARDED AFTER 24 HOURS. INR (04/04/2023) ???INR - 1.3???Protime (PT) - 13.6 seconds Lactic Acid Level (04/04/2023) ???Lactate - 2.0 mmol/L LDH (04/03/2023) ???LDH - 263 units/L Lipase (04/04/2023) ???Lipase - 48 units/L Magnesium Level (04/07/2023) ???Magnesium - 1.7 mg/dL Northeast Tick PCR Panel (04/05/2023) ???Anaplasma PCR - Not detected???Babesia PCR - Not detected???Ehrlichia PCR - Not detected???B Miyamotoi PCR - Not detected???B. Burgdorferi PCR, Blood - Not detected PERIPHERAL BLOOD SMEAR REVIEW (04/03/2023) ???Peripheral Blood Smear Review Interp. - Reviewed by pathologist. Phosphorus Level (04/07/2023) ???Phosphorus - 3.6 mg/dL ProBNP (04/03/2023) ? ?Nt-Probnp - <36 pg/mL Procalcitonin Level (04/05/2023) ???Procalcitonin - 0.06 ng/mL PTT (04/03/2023) ???APTT - 27.5 seconds RETICULOCYTE COUNT (04/03/2023) ???Retic Count - 2.7 %???Retic Count Corrected - 1.3 %???Retic Production Index - 0.7 % Troponin T, High Sensitivity (04/03/2023) ???High Sensitivity Troponin (HSTnT) - 29 ng/L TSH with T4 Reflex (Adults Only) (04/03/2023) ???TSH - 1.91 uIU/mL Uric Acid (04/05/2023) ???Uric Acid - 3.4 mg/dL Urinalysis w/hold for Urine Culture (04/03/2023) ???Appear/Color, Urine - YELLOW???Specific [place], Urine - 1.012???pH, Urine - 6.5???Albumin, Urine - 1+???Glucose, Urine - NEGATIVE???Ketones, Urine - NEGATIVE???Bilirubin, Urine - NEGATIVE???Hemoglobin, Urine - NEGATIVE???Nitrite, Urine - NEGATIVE???Leukocyte, Urine - NEGATIVE???Urobilinogen - 2mg/dL? ?WBC's, Urine - <1 /HPF? ?RBC's, Urine - 1 /HPF? ?Bacteria - SLIGHT? ?Hold Urine Culture - Testing available 48 hours from time of collection. Allergies (NKA means No Known Allergies) NKA Problems Active Problems??(1) Chronic alcohol use?? Education Materials Below is the list of Educational Leaflet Providered with your Discharge Instructions. Acamprosate Delayed Release Oral Tablet?? Discharge Instructions for Liver Cirrhosis?? Understanding Alcohol Use Disorder (AUD)?? Valuables and Belongings I fully understand and agree that [facility] accepts no responsibility for all my personal property including clothing, toilet articles, radios, jewelry, dentures, hearing aids, rings, money, or any other property that is in my possession or is brought to me after admission. I understand certain valuables may be placed in a hospital safe for a short period of time. I understand that the hospital is not liable for loss or damage due to accident, fire, or other natural occurrence while said property is in the safe. I accept full responsibility for any personal property that I keep with me, and will not hold the hospital responsible in case of loss or disappearance. I acknowledge that i have been encouraged to send valuables and belongings home. ?? Review of Valuable and Belonging List: With patient Possessions released to: Patient transferred to [facility] Date for Pt to Sign Valuables/Belongings: 04/06/23 10:45:00 ?? Other Discharge Information ? Pulmonary Rehab Status?? Pulmonary Rehab Discharge Status?? Respiratory Rate:??14 br/min??Low ? Common Emergency Awareness Tips IS IT A STROKE? Act FAST and Check for these signs: FACE Does the face look uneven? ARM Does one arm drift down? SPEECH Does their speech sound strange? TIME Call at any sign of stroke ?? Heart Attack Signs Chest discomfort: Most heart attacks involve discomfort in the center of the chest and lasts more than a few minutes, or goes away and comes back. It can feel like uncomfortable pressure, squeezing, fullness or pain. Discomfort in upper body: Symptoms can include pain or discomfort in one or both arms, back, neck, jaw or stomach. Shortness of breath: With or without discomfort. Other signs: Breaking out in a cold sweat, nausea, or lightheaded. Remember, MINUTES DO MATTER. If you experience any of these heart attack warning signs, call to get immediate medical attention! ?? Smoking can increase your chances of developing chronic health problems and can cause harmful effects to other family members in your house. If you smoke, you are strongly encouraged to quit. Please call [facility] [employer] at [phone] or [phone] ([phone] or log in to [email or web address] for referrals to smoking cessation programs. ?? 775 Suicide & Crisis Lifeline is available 30/03 if you or someone you know needs to find a reason to keep living. By calling 390 you'll be connected to a skilled, trained counselor at a crisis center in your area. INPATIENT DISCHARGE INSTRUCTIONS SIGNATURE PAGE PATRICIA OMRENO Location:[facility] Registration Date and Time:04/03/2023 06:20 EDT Primary Care Physician: Gee Steele MD, Attending Physician: Naomi Nunez MD, I PATRICIA MORENO, have received the above patient education materials/instructions and have verbalized understanding. If ambulance or transport services are being used I further acknowledge being given a choice of service. ?? If you need to contact me, please call me at this number: . Patient/Hospital Corpsman Name: Patient/Hospital Corpsman Signature: Relationship to Patient: Witness Name/Signature: Date: * Naomi Nunez MD: PERFORM Event Display: Patient Education Leaflets Authored Date: [id number] Acamprosate Delayed Release Oral Tablet ?? [id number] Acamprosate Delayed Release Oral Tablet Uses For treating alcohol dependence. ?? Instructions Swallow the medicine without crushing or chewing it. This medicine may be taken with or without food. Store at room temperature away from heat, light, and moisture. Do not keep in the bathroom. It is important that you keep taking each dose of this medicine on time even if you are feeling well. If you forget to take a dose on time, take it as soon as you remember. If it is almost time for thenext dose, do not take the missed dose. Return to your normal schedule. Do not take 2 doses at one time. Drug interactions can change how medicines work or increase risk for side effects. Tell your healthcare providers about all medicines taken. Include prescription and unyr-csx-kfxuxsd medicines, vitamins, and herbal medicines. Speak with your doctor or pharmacist before starting or stopping any medicine. Tell your doctor if symptoms do not get better or if they get worse. Keep all appointments for medical exams and tests while on this medicine. ?? Cautions Tell your doctor and pharmacist if you ever had an allergic reaction to a medicine. Some patients taking this medicine have experienced serious side effects. Please speak with your doctor to understand the risks and benefits associated with this medicine. Do not use the medication any more than instructed. Your ability to stay alert or to react quickly may be impaired by this medicine. Do not drive or operate machinery until you know how this medicine will affect you. Do not drink beverages with alcohol while on this medicine. Contact your doctor if you notice a change in the amount or darkening of your urine. Family should check on the patient often. Call the doctor if patient becomes more depressed, has thoughts of suicide, or shows changes in behavior. Tell the doctor or pharmacist if you are , planning to be , or . Do not share this medicine with anyone who has not been prescribed this medicine. ?? Side Effects The following is a list of some common side effects from this medicine. Please speak with your doctor about what you should do if you experience these or other side effects. ??? decreased appetite ??? bloating ??? constipation or diarrhea ??? dizziness or drowsiness ??? lack of energy and tiredness ??? headaches ??? joint or muscle pain ??? nausea and vomiting ??? problems with sexual functions or desire ??? stomach pain ??? change in weight Call your doctor or get medical help right away if you notice any of these more serious side effects: ??? severe or persistent abdominal pain ??? coughing up blood or vomit that looks like coffee grounds ??? fainting ??? hearing loss ??? rapid heartbeat ??? mood changes ??? seizures ??? dark, tarry stool ??? persistent or unusual thirst ??? blurring or changes of vision A few people may have an allergic reaction to this medicine. Symptoms can include difficulty breathing, skin rash, itching, swelling, or severe dizziness. If you notice any of these symptoms, seek medical help quickly. ?? Extra Please speak with your doctor, nurse, or pharmacist if you have any questions about this medicine. ?? [email or web address] IMPORTANT NOTE: This document tells you briefly how to take your medicine, but it does not tell youall there is to know about it. Your doctor or pharmacist may give you other documents about your medicine. Please talk to them if you have any questions. Always follow their advice. There is a more complete description of this medicine available in Montenegrin. Scan this code on your smartphone or tablet or use the web address below. You can also ask your pharmacist for a printout. If you have any questions, please ask your pharmacist. The display and use of this drug information is subject to Terms of Use. Copyright(c) 2022 [employer]. ?? The [employer]. All rights reserved. This information is not intended as a substitute for professional medical care. Always follow your healthcare professional's instructions. ?? * Naomi Nunez MD: PERFORM Event Display: Patient Education Leaflets Authored Date: [id number] Discharge Instructions for Liver Cirrhosis ?? 55806 Discharge Instructions for Liver Cirrhosis You have been diagnosed with cirrhosis of the liver. This is a long-term (chronic)??problem. It occurs when liver tissue is destroyed and replaced by scar tissue. Causes of cirrhosis include: ??? Infection such as viral hepatitis ??? Chronic alcoholism ??? The body???s immune system attackshealthy cells (autoimmune disorders) ??? Obesity, diabetes, high blood pressure, and high cholesterol ??? Medicine side effects ??? Genetic diseases Sometimes the exact cause is unknown. You may not have any symptoms at first. Or your symptoms may be mild. But they usually get worse. Cirrhosis is likely to occur if you have a history of long-termalcohol abuse. Cirrhosis can???t be cured. But it can be treated??and sometimes can improve. Home care Alcohol ??? People with cirrhosis should not drink alcohol. If you stop drinking, you may feel better and live longer. Even if cirrhosis is not from alcohol, alcohol may cause the liver disease to get worse.??? If you are a chronic alcohol user, you will have withdrawal symptoms. Talk with your healthcareprovider for more information. ? If alcohol is a problem, ask your provider about medicine that can help you quit drinking. ? Find a local Alcoholics Anonymous support group online at www.aa.org/. Diet ??? Ask your provider what kind of diet you should follow. You may be asked to limit or not eat certain foods. Don't limit your protein intake. ??? Weigh yourself daily and keep a weight log. If you have a sudden change in weight, call your provider. ??? Cut back on salt: o Limit canned, dried, packaged, and fast foods. o Don???t add salt to your food at the table. o Season foods with herbs instead of salt when you cook. Medicines, supplements, and vaccines ??? Take your medicines exactly as directed. ??? Talk with your provider before taking vitamins, nrub-czk-tlggomn medicines, or herbal supplements. Some herbal supplements may be toxic to the liver. Painkillers called NSAIDs (nonsteroidal anti-inflammatory drugs), such as ibuprofen, can harm the liver if you have cirrhosis. ??? Don't take aspirin or other blood-thinning medicines unless directed by your provider. ??? Discuss vitamin supplements and deficiencies with your provider. ??? Ask your provider about getting vaccines for viruses that can cause liver diseases. ?? Follow-up care Follow up with your healthcare provider, or as advised. You will likely have the following tests: ??? Lab tests ??? Blood tests for liver cancer ??? Ultrasound or MRI of your liver every 6 months ???Endoscopy to check for swollen veins (varices) in your digestive tract ??? Other tests and medicines are needed if the cirrhosis worsens. ?? When to call your provider Call your healthcare provider right away if you have any of the following: ??? Fever of?? 100.4??F??( 38.0??C) or higher, or as directed by your provider ??? Extreme tiredness (fatigue),??weakness,??or lack of appetite ??? Vomiting (with or without blood) ??? Yellowing of your skin or eyes (jaundice) ??? Itching ??? Swelling in your belly or legs ??? Black or tarry stools ??? Skin that bruises easily ??? Confusion or trouble thinking clearly ?? Last Reviewed Date: 2021 ?? [employer]. All rights reserved. This information is not intended as a substitute for professional medical care. Always follow your healthcare professional's instructions. ?? * Naomi Nunez MD: PERFORM Event Display: Patient Education Leaflets Authored Date: [id number] Understanding Alcohol Use Disorder (AUD) ?? 88379 Understanding Alcohol Use Disorder (AUD) Alcohol use disorder (AUD) is a pattern of alcohol use that includes: ??? Problems controlling drinking ??? Always thinking about drinking ??? Continuing to use alcohol even when it causes physical, emotional, social, and money problems ??? Needing to drink more alcohol to get the same effect ??? Having withdrawal symptoms when drinking is stopped It's a disease in which a person is dependent on a drug???alcohol. AUD also includes a level of abuse called alcoholism. The disease can harm the person???s physical and mental health. It can also affect their behavior. AUD isn't a character flaw. It's not a moral failure. Untreated, it's a diseasethat gets worse over time. Untreated, it can also lead to brain damage and . Recovery is possible if drinking is stopped. Effects of AUD Behavioral effects Drinking is the main behavior of people with AUD. They develop a private relationship with drinking. They guard it. They give it their time, money, and attention. This may happen at the expense of family and friends. They lie for it and think about it all the time. They may risk losing their families for it. They may risk their lives for it. Despite the harm it causes, they can???t control the drinking. Health risks People with AUD are at high risk for health problems. These include heart disease and cancer. They also include mental illness. People with the disease may not heal from illness normally. Unless drinking is stopped, it can cause . may result from organ failure, cancer, or common viruses. may also result from accidents or suicide. Physical effects Alcohol can be like a poison to the body. It kills cells. Heavy drinking over a long time can greatly harm the body???s organs. These can include the brain, heart, liver, and pancreas. Chronic drinking also harms the digestive tract. It can make the blood thin and unable to clot. This causes bruising and even fatal bleeding.??It harms the immune system as well. This leaves the body at risk for serious disease. Psychological effects AUD can lead to a type of distorted thinking. One of the most common forms of this is denial. This is when the person denies that drinking is a problem. They may deny that any of the problems in their life are caused by drinking. They may blame others for problems they have. ?? Last Reviewed Date: 2021 ?? [id number] [employer]. All rights reserved. This information is not intended as a substitute for professional medical care. Always follow your healthcare professional's instructions. ?? * Event Display: Provider Clarification Note Please click on pdf link to open report Consult note * Danelle Esquivel MD: PERFORM Event Display: Consultation Note Authored Date: [id number] Patient: ??PATRICIA MORENO ? Age:??47 Years?Sex:??Male?:??1975?? Chief Complaint found sleeping passenger side, PD called EMS, ?beer in center console, admitted to a couple beers History of Present Illness ?Requesting Attending/Provider: ??Jose ?Reason for Consult:??Fever, SIRS without any source ?Source of Information: [facility], patient?History of Present Illness??([id number]:??HPI ?4):?The patient is a??47 year-old??male with a past medical history of??alcohol abuse, withdrawal seizures who presented to the ED after blacking out and feeling shaky, similar to his prior alcohol withdrawal seizures.?? ID was consulted as he has been having fevers and SIRS without any source.?? Mr. Moreno presented to the ED on 04/03 after blacking out in the passenger seat of a car and then feeling shaky thereafter.?? He felt that this was similar to his prior alcohol withdrawal seizures.?? In the ED, he appeared to be intoxicated.?? Labs showed a WBC count of 2.3, hemoglobin of 6.7, platelets of 15, creatinine of 0.5, ethanol level of 396.?? He was admitted for work-up of pancytopenia and management of alcohol withdrawal.?? Ultrasound of his liver showed evidence of cirrhosiswith splenomegaly.?? Over the course of his hospitalization, he has been tachycardic into the 110-120s and has occasional low-grade fevers, last temperature at 0900 on 04/05 to 100.8.?? Work-up for this has included blood cultures, which have been no growth to date, a parasite smear which is negative, a UA with less than 1 WBC.?? A [facility] tick panel was obtained and is pending.?? CT chest/abdomen/pelvis was obtained, with no specific etiology of infection.?? Overnight, he went into severe alcohol withdrawal with a great deal of tremors. When I saw him today, he was not appropriately answering any??questions, including??when asked his name. ?Past Medical and Surgical History:??Alcohol abuse??with complicated withdrawal in the past,including withdrawal seizures ?Recent Antimicrobials:?-None ?Medications: Reviewed ?Antimicrobial Allergies: No known antimicrobial allergies. ?Family History:??Unable to obtain from patient due to mental status. ?Social History: Unable to obtain from patient due to mental status. Per [facility], active heavy alcohol use. Review of Systems Unable to obtain from patient due to mental status. Physical Exam Vitals & Measurements T:??98.8?F?? TMIN:??98.6?F?? TMAX:??100.0?F?? HR:??91??(Peripheral)?? RR:??17?? BP:??134/95?? SpO2:??100%?? WT:??74.3??kg?? Gen: Laying in bed, tremulous but non-toxic, in restraints Eyes: PERRL, EOM intact, no conjunctival hemorrhages HENT: Oropharynx clear, MM moist, no thrush, neck supple CV: Normal S1 and S2, no m/r/g appreciated Resp: CTA b/l, no wheezes or crackles GI: Normoactive BS, soft, NT, ND : No??suprapubic tenderness MSK: No joint swelling or effusion Skin: No rashes, few spider angiomata present Neuro:??Not oriented at all, could not tell me??his??name, place, or year. Diffusely tremulous ?? Lines:??PIVs Assessment/Plan 47 year-old??male with a past medical history of??alcohol abuse, withdrawal seizures who presented to the ED after blacking out and feeling shaky, similar to his prior alcohol withdrawal seizures.?? ID was consulted as he has been having fevers and SIRS without any source.?? At this point, his IDwork-up has been unrevealing. ??His UA has no evidence of??pyuria,??blood cultures are no growth todate,??CT chest/abdomen/pelvis is unrevealing,??and he is maintaining his saturations well on room air??without any clinical evidence of pneumonia.?? A [facility] panel is still pending, but he does not have laboratory abnormalities that I would expect to see from anaplasmosis. ??I suspect his t hrombocytopenia is just secondary to cirrhosis and splenomegaly, and his??isolated elevated??AST isprobably due to??alcohol use.?? At this time, I am much more suspicious??that his??fevers and tachycardia are actually due to his severe alcohol withdrawal.?? Delirium tremens is defined as hallucinations, disorientation, tachycardia, hypertension,??hyperthermia, agitation, and diaphoresis, most ofwhich he has.?? I would continue to hold antibiotics at this time and manage his alcohol withdrawalsupportively. ??If the [facility] tick panel does return positive for anaplasmosis, he can be given??a 10-day course of oral doxycycline. -Fevers and tachycardia most likely secondary to delirium tremens rather than infection -Follow [facility] tick panel, if surprisingly positive for anaplasmosis, treat with 10 days of oraldoxycycline ?? ID will sign off; please call back with questions ?Danelle Esquivel MD, MPH ? Lab Results Test Name Test Result Date/Time WBC 4.7 k/mm3 04/06/2023 06:14 EDT Hgb 7.6 Gm/dL 04/06/2023 06:14 EDT Platelet Count 41 k/mm3 04/06/2023 06:14 EDT Sodium 133 mmol/L 04/06/2023 06:17 EDT Potassium 3.8 mmol/L 04/06/2023 06:17 EDT Chloride 102 mmol/L 04/06/2023 06:17 EDT Bicarbonate Level 20 mmol/L 04/06/2023 06:17 EDT Creatinine-Blood 0.6 mg/dL 04/06/2023 06:17 EDT Alkaline Phosphatase 63 units/L 04/06/2023 06:17 EDT AST (SGOT) 61 units/L 04/06/2023 06:17 EDT ALT (SGPT) 15 units/L 04/06/2023 06:17 EDT Bilirubin, Total 1.7 mg/dL 04/06/2023 06:17 EDT Diagnostic Results Micro: 04/04: Blood???no growth to date ?? 04/05: Parasite smear???negative thin smear ?? Radiology: 04/05: CT chest/abdomen/pelvis???IMPRESSION: ?? No specific etiology of infection is demonstrated. ?? Hepatosplenomegaly with evidence of portal venous hypertension including esophageal varices and a recanalized umbilical vein. ?? Nonspecific mild inflammatory change in the right lower quadrant of the abdomen. Note is made that the appendix appears normal. ?? Bilateral hydroceles. * Kina Rob: PERFORM, SIGN, VERIFY Event Display: Consultation Note Authored Date: Patient: PATRICIA MORENO Age: 47 years Sex: Male : 1975 Associated Diagnoses: None Author: Kina Rob Addiction consult requested, pt with ongoing ETOH use. Addiction sales team leader met with pt this afternoon and he declined interest in pursuing anythingin terms of resources or medication. However pt did have a visitor, which may have influenced his responses somewhat. If pt is still here next week, will likely try to check in again. If pt is ready for d/c for some reason in the mean time, and expresses interest in trying a medication for ETOH cravings, could consider providing naltrexone 50mg PO daily on d/c. If pt receives any opioids here, should wait 7 days from last dosing to start. Primary team was updated. * Maria Eugenia Trejo: VERIFY, PERFORM, SIGN Event Display: Consultation Note Authored Date: Patient: PATRICIA MORENO Age: 47 years Sex: Male : 1975 Associated Diagnoses: None Author: Maria Eugenia Trejo Met with patient this afternoon to discuss addiction resources. Patient declined all addiction resources such as therapy, inpatient treatment programs, IOP, MAT, recovery coaching and AA. If patient decides he would like assistance with resources, I will meet with patient again. Patient Care team information Care Team Personnel Name: Zak Jiménez RN Position: [facility] ED RN W/OE and Tasks Member Role: Primary Care Nurse Name: Oneida Faustin RN Position: S RN Member Role: Primary Care Nurse Name: Pamela Conklin RN Position: S RN Member Role: Primary Care Nurse Name: Gogo Kingston RN Position: [facility] RN Member Role: Primary Care Nurse Name: Ashley Canas Position: [facility] RN Member Role: Primary Care Nurse Name: Di Azevedo RN Position: [facility] RN Member Role: Primary Care Nurse Name: Homer Riley RN Position: [facility] RN Member Role: Primary Care Nurse Name: Geoff Pichardo RN Position: [facility] RN Member Role: Primary Care Nurse Name: Ann Carranza RN Position: [facility] RN Member Role: Primary Care Nurse Name: Rosalie Campoverde RN Position: [facility] RN Member Role: Primary Care Nurse Name: Savita Thomas RN Position: [facility] RN Member Role: Primary Care Nurse Name: Gee Steele MD Position: Reference Physician Member Role: PCP Address: Address: [address] [place] [address] Name: Laura ENGEL Attending Position: [facility] ED Medicine MD Name: Abena Leavitt RN Position: [facility] ED RN W/OE and Tasks Member Role: Patient Care Provider Name: Faith Wise Position: [facility] ED OA Charge Member Role: ED Associate Name: Yemi Dick Position: [facility] ED TA [facility] Member Role: Equipment Maintenance Superintendent Care Team Related Persons Name: TIFFANIE BLAINE Address: home [address] [place] [id number] Name: DC MORENO Address: [address] [address]
--- OUTSIDE RECORDS SUMMARY | 2024-02-12 15:38 | XMS_ITS | Continuity of Care Document ---
Author Organization [facility] ter Address [address] [place] [address]- Care Team Providers Care Manager Card Name Role Phone Ivette FRANKS, Gee Primary Care Physician [phone] [id number] Date(s): 04/10/23 - 04/10/[address] [address]- Discharge Disposition: A-D/C Home Attending Physician: Shyam Ingram MD Admitting Physician: Shyam Ingram MD Referring Physician: Not on Staff, Referring [...] 3 Refills, Maintenance, 04/09/23 9:42:00 EDT, Tablet, [facility], Partial fill upon patient request if the prescription is for a schedule II opioid drug. Start Date: 04/09/23 Status: Ordered folic acid 1 mg oral tablet 1 mg, 1, tablet, By Mouth, Daily, # 90 tablet, Refills 0, Tot. Refills 0, Maintenance, 04/09/23 9:42:00 EDT, Route to Pharmacy Electronically, [facility] Start Date: 04/09/23 Stop Date: 07/08/23 Status: Ordered multivitamin Multiple Vitamins oral tablet 1 tablet, By Mouth, Daily, # 90 tablet, 0 Refills, Maintenance, 04/09/23 9:42:00 EDT, Tablet, [facility], Partial fill upon patient request if the prescription is for a schedule II opioid drug., 1 tablet By Mouth Daily Start Date: 04/09/23 Status: Ordered thiamine 100 mg oral tablet 100 mg, 1, tablet, By Mouth, Daily, for 90 days, # 90 tablet, Refills 0, Tot. Refills 0, Acute 07/08/23 9:43:00 EDT, 04/09/23 9:43:00 EDT, Route to Pharmacy Electronically, [facility], Partial fill upon patient [...] atus Informant Chronic alcohol use Confirmed Active Vital Signs Most recent to oldest [Reference Range]: 1 Oxygen Saturation [94-100 %] 99 % (04/10/23 2:06 PM) Pulse Rate [55-90 bpm] 102 bpm *H* (04/10/23 2:06 PM) Blood Pressure [90-138/55-84 mm Hg] 134/ 85mm Hg (04/10/23 2:06 PM) Respiratory Rate [16-30 br/min] 17 br/mi n (04/10/23 2:06 PM) Temperature [96.8-100.4 DegF] 99.7 DegF (04/10/23 2:06 PM) Mode of Delivery (Oxygen) Room air (04/10/23 2:06 PM) Blood pressure sites Arm, left (04/10/23 2:06 PM) Temperature Route Oral (04/10/23 2:06 PM) Patient Care team information Care Team Personnel Name: Zak Jiménez RN Position: [facility] ED RN W/OE and Tasks Member Role: Primary Care Nurse Name: Oneida Faustin RN Position: S RN Member Role: Primary Care Nurse Name: Pamela Conklin RN Position: S RN Member Role: Primary Care Nurse Name: Goog Kingston RN Position: [facility] RN Member Role: Primary Care Nurse Name: Ashley Canas Position: [facility] RN Member Role: Primary Care Nurse Name: Di Azevedo RN Position: [facility] RN Member Role: Primary Care Nurse Name: Homer Riley RN Position: [facility] RN Member Role: Primary Care Nurse Name: Geoff Pichardo RN Position: [facility] RN Member Role: Primary Care Nurse Name: Ann Carranza RN Position: [facility] RN Member Role: Primary Care Nurse Name: Rosalie Campoverde RN Position: [facility] RN Member Role: Primary Care Nurse Name: Savita Thomas RN Position: [facility] RN Member Role: Primary Care Nurse Name: Gee Steele MD Position: Reference Physician Member Role: PCP Address: Address: [address] [place] [address]- Name: Shyam Ingram MD Position: [facility] ED Medicine MD Member Role: Admitting Physician Address: Address: [address] [place] [address] Name: Blanca Arenas MD Position: [facility] Resident Address: Address: [address] [place] [address] Name: Aliyah Batista RN Position: [facility] ED RN W/OE and Tasks Member Role: Patient Care Provider Name: Winnie Mcdonough Position: [facility] ED TA [facility] Member Role: [employer] Worker Care Team Related Persons Name: BLAINE MORENO Address: home [address] [place] [address] Name: DC MORENO Address: home [address] [place] [id number]
--- OUTSIDE RECORDS SUMMARY | 2024-02-12 15:38 | XMS_ITS | Continuity of Care Document ---
Author Organization [facility] ter Address [address] [place] [address]- Care Team Providers Care Furnace Combination Analyst Name Role Phone Ivette FRANKS, Gee Primary Care Physician [phone] [place] [facility] Date(s): 09/24/19 - 09/26/[address] [address]- [facility] Discharge Disposition: A-D/C AMA Attending Physician: Osei Bruno DO Admitting Physician: Ro Chapman MD Referring Physician: Not on Staff, Referring MD Allergies, Adverse Reactions, Alerts Substance Reaction Severity Status NKA Active Immunizations Given and Recorded Vaccine Date Status Refusal Reason pneumococcal 23-valent vaccine 09/25/19 Given influenza virus vaccine, inactivated 09/25/19 Give n tetanus-diphtheria toxoids (Td) 09/07/07 Given Medications folic acid 1 mg oral tablet 1 mg, 1, tablet, By Mouth, Daily, # 30 tablet, Refills 0, Tot. Refills 0, Maintenance, 05/11/19 12:22:53 EDT, Route to Pharmacy Electronically, [id number], [id number] Start Date: 05/11/19 Stop Date: 06/10/19 Status: Ordered multivitamin Multiple Vitamins oral tablet 1 tablet, By Mouth, Daily, # 30 tablet, 0 Refills, Maintenance, 05/11/19 12:23:22 EDT, Tablet, 1 tablet By Mouth Daily,x30 days Start Date: 05/11/19 Stop Date: 06/10/19 Status: Ordered pantoprazole 40 mg oral delayed release tablet 1 tablet = 40 mg, By Mouth, Daily, # 30 tablet, 0 Refills, Maintenance, 05/11/19 12:23:44 EDT, EC Tablet Start Date: 05/11/19 Stop Date: 06/10/19 Status: Ordered Problem List Condition Effective Dates Status Health Status Inform ant Chronic alcohol use(Confirmed) Active Vital Signs Most recent to oldest [Reference Range]: 1 2 3 Height 176 cm (09/26/19 12:26 AM) 176 cm (09/25/19 4:35 PM) 176 cm (09/25/19 11:35 AM) Weight 79.9 kg (09/25/19 5:58 AM) 76.0 kg (09/24/19 3:23 PM) Oxygen Saturation [94-100 %] 98 % (09/26/19 12:26 AM) 95 % (09/25/19 4:35 PM) 97 % (09/25/19 11:35 AM) Pulse Rate [55-90 bpm] 112 bpm *H* (09/26/19 12:26 AM) 87 bpm (09/25/19 4:35 PM) 70 bpm (09/25/19 11:35 AM) Body Mass Index [18.5-24.99] 25.79 *H* (09/25/19 5:58 AM) 24.54 (09/24/19 3:23 PM) Blood Pressure [90-138/55-84 mm Hg] 138/91mm Hg (09/26/19 12:26 AM) 121/88mm Hg (09/25/19 4:35 PM) 115/72mm Hg (09/25/19 11:35 AM) Respiratory Rate [16-30 br/min] 18 br/min (09/26/19 12:26 AM) 18 br/min (09/25/19 4:35 PM) 18 br/min (09/25/19 11:35 AM) Temperature [96.8-100.4 DegF] 100.9 DegF *H* (09/26/19 12:26 AM) 100.2 DegF (09/25/19 4:35 PM) 99.3 DegF (09/25/19 11:35 AM) Mode of Delivery (Oxygen) Room air (09/26/19 12:26 AM) Room air (09/25/19 4:35 PM) Room air (09/25/19 11:35 AM) Blood pressure sites Arm, left (09/26/19 12:26 AM) Arm, right (09/25/19 4:35 PM) Arm, right (09/25/19 11:35 AM) Temperature Route Oral (09/26/19 12:26 AM) Oral (09/25/19 4:35 PM) Oral (09/25/19 11:35 AM) Dry Weight 76.0 kg (09/24/19 3:23 PM) Weight Obtained Via Bed scale (09/25/19 5:58 AM) Bed scale (09/24/19 3:23 PM) Sensory deficits None (09/24/19 3:23 PM) Mobility assistance Ambulate, assist of 1 (09/24/19 3:23 PM)
--- OUTSIDE RECORDS SUMMARY | 2024-02-12 15:38 | XMS_ITS | Continuity of Care Document ---
Author Organization [facility] Address [address] [place] [id number]- Care Team Providers Care Game Developer Name Role Phone Ivette FRANKS, Gee Primary Care Physician Encounter [facility] [place] Date(s): 04/27/23 - 05/27/23 [facility] [address] [place] [id number]- Allergies, Adverse Reactions, Alerts No Known Allergies Immunizations Given and Recorded Vaccine Date Status Refusal Reason pneumococcal 23-valent vaccine 09/25/19 Given influenza virus vaccine, inactivated 09/25/19 Give n tetanus-diphtheria toxoids (Td) 09/07/07 Given Medications acamprosate 333 mg oral delayed release tablet = 666 mg, By Mouth, 3 times a day with meals, # 180 tablet, 3 Refills, Maintenance, 04/09/23 9:42:00 EDT, Tablet, [facility], Partial fill upon patient request if the prescription is for a schedule II opioid drug. Start Date: 04/09/23 Status: Ordered chlordiazePOXIDE 25 mg oral capsule 1 capsule = 25 mg, By Mouth, 2 times a day, starting 04/26/23- then 1 capsule daily 04/28/23-04/29/23, Maintenance, 04/25/23 17:18:00 EDT, Partial fill upon patient request if the prescription isfor a schedule II opioid drug. Start Date: 04/25/23 Status: Ordered folic acid 1 mg oral tablet 1 mg, 1, tablet, By Mouth, Daily, # 90 tablet, Refills 2, Tot. Refills 2, Maintenance, 05/01/23 13:24:00 EDT, Print Requisition Start Date: 05/01/23 Stop Date: 01/26/24 Status: Ordered lactulose 10 gm/15 ml oral syrup 30 mL = 20 Gm, By Mouth, 3 times a day, adjust for 2-3 BM a day, # 2,700 mL, 3 Refills, Maintenance, 05/01/23 13:24:00 EDT, Syrup, Partial fill upon patient request if the prescription is for a schedule II opioid drug. Start Date: 05/01/23 Stop Date: 08/29/23 Status: Ordered multivitamin Multiple Vitamins oral tablet 1 tablet, By Mouth, Daily, # 90 tablet, 2 Refills, Maintenance, 05/01/23 13:24:00 EDT, Tablet, Partial fill upon patient request if the prescription is for a schedule II opioid drug. Start Date: 05/01/23 Status: Ordered thiamine 100 mg oral tablet 100 mg, 1, tablet, By Mouth, 2 times a day, for 90 days, # 180 tablet, Refills 2, Tot. Refills 2, Acute 01/26/24 13:23:00 EDT, 05/01/23 13:23:00 EDT, Print Requisition, Partial fill upon patient request if the prescription is for a schedule II opioid... Start Date: 05/01/23 Stop Date: 01/26/24 Status: Ordered Vitamin B-12 1000 mcg oral tablet 1,000 mcg, 1, tablet, By Mouth, 2 times a day, Refills 0, Maintenance, 04/03/23 7:16:00 EDT, Partial fill upon patient request if the prescription is for a schedule II opioid drug. Start Date: 04/03/23 Status: Ordered Problem List Condition Confirmation Course Effective Dates Status Health [facility] Informant Alcohol dependence Confirmed Active Patient Care team information Care Team Personnel Name: Zak Jiménez RN Position: [facility] ED RN W/OE and Tasks Member Role: Primary Care Nurse Name: Oneida Faustin RN Position: [facility] RN Member Role: Primary Care Nurse Name: Pamela Conklin RN Position: [facility] RN Member Role: Primary Care Nurse Name: Gogo Kingston RN Position: [facility] RN Member Role: Primary Care Nurse Name: Ashley Canas Position: [facility] RN Member Role: Primary Care Nurse Name: Di Azevedo RN Position: [facility] RN Member Role: Primary Care Nurse Name: Homer Riley RN Position: [facility] RN Member Role: Primary Care Nurse Name: Geoff Pichardo RN Position: [facility] RN Member Role: Primary Care Nurse Name: Ann Carranza RN Position: [facility] RN Member Role: Primary Care Nurse Name: Milana Bundy RN Position: S RN Member Role: Primary Care Nurse Name: Gregor Burch RN Position: S RN Member Role: Primary Care Nurse Name: Rosalie Campoverde RN Position: [facility] RN Member Role: Primary Care Nurse Name: Savita Thomas RN Position: [facility] RN Member Role: Primary Care Nurse Name: Gee Steele MD Position: Reference Physician Member Role: PCP Address: Address: [address] [place] [address]- Care Team Related Persons Name: BLAINE MORENO Address: home [address] [place] [id number] Name: DC MORENO Address: [address] [address]
--- OUTSIDE RECORDS SUMMARY | 2024-02-12 15:38 | XMS_ITS | Continuity of Care Document ---
Author Organization [facility] Address [address] [place] [id number]- Care Team Providers Care Mechanical Service Representative Name Role Phone Ivette FRANKS, Gee Primary Care Physician [place] [facility] [place] - 06/18/23 [facility] [address] [place] [id number]- Allergies, Adverse Reactions, Alerts No Known Allergies Immunizations Given and Recorded Vaccine Date Status Refusal Reason pneumococcal 23-valent vaccine 09/25/19 Given influenza virus vaccine, inactivated 09/25/19 Give n tetanus-diphtheria toxoids (Td) 09/07/07 Given Medications acamprosate 333 mg oral delayed release tablet = 666 mg, By Mouth, 3 times a day with meals, # 180 tablet, 3 Refills, Maintenance, 04/09/23 9:42:00 EDT, Tablet, [facility], Partial fill upon patient [...] Team Personnel Name: Zak Jiménez RN Position: [facility] ED RN W/OE and Tasks Member Role: Primary Care Nurse Name: Oneida Faustin RN Position: [facility] RN Member Role: Primary Care Nurse Name: Pamela Conklin RN Position: [facility] RN Member Role: Primary Care Nurse Name: Gogo Kingston RN Position: [facility] RN Member Role: Primary Care Nurse Name: Ashley Canas Position: [facility] RN Member Role: Primary Care Nurse Name: Di Azevedo RN Position: [facility] RN Member Role: Primary Care Nurse Name: Homer Riley RN Position: [facility] RN Member Role: Primary Care Nurse Name: Geoff Pichardo RN Position: [facility] RN Member Role: Primary Care Nurse Name: Ann Carranza RN Position: [facility] RN Member Role: Primary Care Nurse Name: Milana Bundy RN Position: S RN Member Role: Primary Care Nurse Name: Gregor Burch RN Position: S RN Member Role: Primary Care Nurse Name: Rosalie Campoverde RN Position: [facility] RN Member Role: Primary Care Nurse Name: Savita Thomas RN Position: [facility] RN Member Role: Primary Care Nurse Name: Gee Steele MD Position: Reference Physician Member Role: PCP Address: Address: [address] [place] [address]- Care Team Related Persons Name: BLAINE MORENO Address: home [address] [place] [id number] Name: DC MORENO Address[address] [address]
--- OUTSIDE RECORDS SUMMARY | 2024-02-12 15:38 | XMS_ITS | Continuity of Care Document ---
Author Organization [facility] Address [address] [place] [address]- Care Team Providers Care Assisted Sales Representative Name Role Phone Ivette FRANKS, Gee Primary Care Physician [phone] [place] [facility] [place] 05/01/[address] [id number] Encounter Diagnosis Hepatic encephalopathy(Final) - 04/25/23 Discharge Disposition: Disch/Trans to IP Rehab or unit w/in Hos Attending Physician: Luz Lopez MD Admitting Physician: Drew Orta MD Referring Physician: Not on Staff, Referring [...] 3 Refills, Maintenance, 04/09/23 9:42:00 EDT, Tablet, [facility], Partial fill upon [...] Date: 05/01/23 Stop Date: 08/29/23 Status: Ordered magnesium oxide 400 mg oral tablet = 400 mg, By Mouth, 2 times a day, for 14 days, # 28 tablet, 0 Refills, Acute 05/15/23 13:24:00 EDT, 05/01/23 13:24:00 EDT, Tablet, Partial fill upon patient request if the prescription is for a schedule II opioid drug. Start Date: 05/01/23 Stop Date: 05/15/23 Status: Ordered multivitamin Multiple Vitamins oral tablet [...] List Condition Confirmation Course Effective Dates Status [facility] Informant Alcohol dependence Confirmed Active Results Radiology Reports * Exam Date Time Procedure Performing Provider Status 04/26/23 2:03 PM Chest Portable Magalys Bee; Stacey th (Verified) Notes: (Chest Portable) Reason For Exam: Altered mental status;Other: RESULT: Chest Portable AP portable chest, INDICATION: Reason: Other:; Altered mental status; Clinical Question(s): Pneumonia COMPARISON: 04/03/2023 FINDINGS: LINES AND TUBES: None LUNGS AND PLEURA AND MEDIASTINUM: There is no pneumothorax. Clear lungs without focal infiltrate. Normal size heart. There is low lung volume. IMPRESSION: No acute abnormality. WSN: [id number] Ordering Physician: Blanca Aguayo Dictated By: Ivette Ortega MD Dictated Date/Time: 04/26/23 2:09 pm Reviewed By: Ivette Ortega MD Signed By: Ivette Ortega MD Signed Date/Time: 04/26/23 2:09 pm Transcribed By: ABNER Transcribed Date/Time: 04/26/23 2:08 pm * Exam Date Time Procedure Performing Provider Status 04/25/23 12:[address] Head/Brain W/O Contrast Ludmila Melchor; Zenia (Verified) Notes: (CT Head/Brain W/O Contrast) Reason For Exam: Trauma RESULT: CT Head/Brain W/O Contrast CT Head/Brain W/O Contrast INDICATION: New onset altered mental status. TECHNIQUE: Noncontrast head CT using axial technique and reconstructed in axial and coronal planes.Iterative reconstruction techniques are used to optimize dose and image quality. CTDIvol Head: 47.40 mGy, DLP Head: 773 mGy*cm. COMPARISON: 04/03/2023. FINDINGS: Custom Bow Maker view findings, lines and tubes: None. BRAIN AND EXTRA-AXIAL SPACES: No parenchymal hemorrhage, midline shift, or mass effect. Mcguire-white matter differentiation is wellpreserved. No acute infarct. Negative insular ribbon and hyperdense vessel signs. Moderate prominence of the ventricles and sulci consistent with parenchymal volume loss. No white matter lesions. No subarachnoid hemorrhage. No subdural or epidural collection. CALVARIUM, SKULL BASE, AND SOFT TISSUES: No fractures or suspicious bony lesions. Chronic appearing nasal bone irregularity. The paranasal sinuses and mastoid air cells are clear. Visualized orbits and globes are intact. The extracranial soft tissues are unremarkable aside from mild chronic soft tissue thickening in the posterior midline. IMPRESSION: No acute intracranial pathology. I have personally reviewed the images and I agree with this report. WSN: [id number] Ordering Physician: Fiona Aguillon Dictated By: Edy Lozoya MD Dictated Date/Time: 04/25/23 6:47 am Reviewed By: David Dyer MD Signed By: David Dyer MD Signed Date/Time: 04/25/23 6:52 am Transcribed By: ABNER Transcribed Date/Time: 04/25/23 1:18 am Vital Signs Most recent to oldest [Reference Range]: 1 2 3 Oxygen Saturation [94-100 %] 99 % (05/01/23 11:36 AM) 98 % (05/01/23 7:35 AM) 99 % (05/01/23 3:00 AM) Pulse Rate [55-90 bpm] 70 bpm (05/01/23 11:36 AM) 78 bpm (05/01/23 7:35 AM) 74 bpm (05/01/23 3:00 AM) Blood Pressure [90-138/55-84 mm Hg] 123/76mm Hg (05/01/23 11:36 AM) 121/80mm Hg (05/01/23 7:35 AM) 110/72mm Hg (05/01/23 3:00 AM) Respiratory Rate [16-30 br/min] 20 br/min (05/01/23 11:36 AM) 20 br/min (05/01/23 7:35 AM) 18 br/min (05/01/23 3:00 AM) Temperature [96.8-100.4 DegF] 97.4 DegF (05/01/23 11:36 AM) 97.6 DegF (05/01/23 7:35 AM) 97.4 DegF (05/01/23 3:00 AM) Mode of Delivery (Oxygen) Room air (05/01/23 11:36 AM) Room air (05/01/23 7:35 AM) Room air (05/01/23 3:00 AM) Blood pressure sites Arm, right (05/01/23 11:36 AM) Arm, right (05/01/23 7:35 AM) Arm, right (05/01/23 3:00 AM) Temperature Route Temporal (05/01/23 11:36 AM) Temporal (05/01/23 7:35 AM) Temporal (05/01/23 3:00 AM) History and physical note * Paras Garcia DO: PERFORM Event Display: History and Physical Hospital Authored Date: [id number] Patient: ??PATRICIA MORENO ? Age:??47 Years?Sex:??Male?:??1975?? Chief Complaint/Reason for Consultation -Altered mental status History of Present Illness 47-year-old gentleman presenting to the emergency department??from [facility] with altered mental status. ??Has a history of alcohol dependence??and admitted there on section 35. ??Noother known medical issues. ?? Currently, he is sleeping calmly.?? He denies any fevers chills or sweats. ??Endorses some abdominal discomfort, but no tenderness on palpation.?? He denies any??coughing or dysuria. Review of Systems Unable to assess due to encephalopathy Objective Vital Signs?? Temperature: 98.3 DegF (04/25/23 06:26:00) Temperature Route: Oral (04/25/23 06:26:00) Pulse Rate: 72 bpm (04/25/23 11:30:00) Respiratory Rate: 19 br/min (04/25/23 11:30:00) Systolic Blood Pressure: 115 mm Hg (04/25/23 11:30:00) Diastolic Blood Pressure: 79 mm Hg (04/25/23 11:30:00) Blood pressure sites: Arm, left (04/25/23 11:30:00) Mean Arterial Pressure: 120 mm Hg (04/24/23 22:48:00) Pulse Pressure: 36 mm Hg (04/25/23 11:30:00) Oxygen Saturation: 100 % (04/25/23 11:30:00) Mode of Delivery (Oxygen): Room air (04/25/23 11:30:00) Early Warning Score: 3 (04/25/23 11:30:22) ? Physical Exam Constitutional: Somnolent.?? Awakens to tactile stimuli. Head: Normocephalic. Eyes: Pupils are equal, round and reactive to light. Extraocular muscles intact. No pallor or scleral icterus Ear, Nose and Throat: Mucous membranes moist. Trachea midline. Neck: Supple, Full range of motion.??No JVD or bruits. Respiratory:??Clear to auscultation. No wheezing or rhonchi.??No use of accessory muscles. Cardiovascular:??Rate regular. Rhythm regular. No murmurs, rubs or gallops. Gastrointestinal:??Abdomen soft, non-tender, non-distended. Normal bowel sounds. Genitourinary:??No costovertebral angle tenderness. Extremities: No lower extremity pitting edema. No cyanosis or clubbing. Neurologic:??AAOx1.?? Not tremulous. Skin:??No rash.?? Musculoskeletal:??No gross deformities on inspection. Psychiatric: Calm. Assessment/Plan Diagnoses 1. ??Hepatic encephalopathy ??(K76.82) 2. ??Alcohol dependence ??(F10.20) ?? Assessment:??47-year-old gentleman presenting to the emergency department from [facility] with altered mental status. Has a history of alcohol dependence and admitted there on [id number]. No other known medical issues. ?? Hepatic encephalopathy (K76.82):??Given 1 dose of lactulose last night. We will recheck an ammonia today and give lactulose 3 times daily. We will check ammonia level tomorrow as well. ?? Alcohol dependence (F10.20):??Phenobarbital protocol.??B vitamins ordered.? VTE Prophylaxis:??Low risk ?? Code Status:??Presumed full code ?? Discharge Planning:? Histories Allergies Allergies ?(Active and Proposed Allergies Only) NKA? (Severity: Unknown severity, Onset: Unknown) ? Past Medical History/Problem List Active Problems??(1) Alcohol dependence ? Past Surgical History No surgery history documented. ? Social History No social history documented. ? Family History No family history recorded. ? Medications Home Medications Acamprosate (acamprosate 333 mg oral delayed release tablet)?666?Milligram?By Mouth?3 times a day with meals Cyanocobalamin (Vitamin B-12 1000 mcg oral tablet)?1,000?Microgram?1?tablet?By Mouth?Daily Folic Acid (folic acid 1 mg oral tablet)?1?Milligram?1?tablet?By Mouth?Daily?for 90?Days Multivitamin (multivitamin Multiple Vitamins oral tablet)?1?tab(s)?By Mouth?Daily Thiamine (thiamine 100 mg oral tablet)?100?Milligram?1?tablet?By Mouth?Daily?for 90?Days ? Results Recent Labs BLOOD COUNT & DIFF WBC 5.6 k/mm3 ()?? 04/24/2023 23:33 RBC 3.80 m/mm3 (Low)?? 04/24/2023 23:33 Hgb 9.0 Gm/dL (Low)?? 04/24/2023 23:33 Hct 31.0 % (Low)?? 04/24/2023 23:33 MCV 81.6 femtoliters ()?? 04/24/2023 23:33 MCH 23.7 pg (Low)?? 04/24/2023 23:33 MCHC 29.0 g/dL (Low)?? 04/24/2023 23:33 Platelet Count 44 k/mm3 (Low)?? 04/24/2023 23:33 RDW-SD 60.6 femtoliters (High)?? 04/24/2023 23:33 MPV NOT MEASURED femtoliters ()?? 04/24/2023 23:33 Nucleated RBC (Automated) 0.0 #/100 WBC'S ()?? 04/24/2023 23:33 Abs. NRBC 0.0 k/mm3 ()?? 04/24/2023 23:33 Abs. Neut 3.9 k/mm3 ()?? 04/24/2023 23:33 Abs. Lymph 1.1 k/mm3 ()?? 04/24/2023 23:33 Abs. [place] 0.5 k/mm3 ()?? 04/24/2023 23:33 Abs. Eo 0.1 k/mm3 ()?? 04/24/2023 23:33 Abs. Baso 0.1 k/mm3 ()?? 04/24/2023 23:33 Neut % 68.6 % ()?? 04/24/2023 23:33 Lymph % 20.3 % ()?? 04/24/2023 23:33 [place] % 8.2 % ()?? 04/24/2023 23:33 Eos % 1.8 % ()?? 04/24/2023 23:33 Baso % 0.9 % ()?? 04/24/2023 23:33 Imm Gran 0.2 % ()?? 04/24/2023 23:33 Abs. Imm Gran 0.0 k/mm3 ()?? 04/24/2023 23:33 ?? CHEM GENERAL Sodium 136 mmol/L ()?? 04/24/2023 23:33 Potassium 4.2 mmol/L ()?? 04/24/2023 23:33 Chloride 101 mmol/L ()?? 04/24/2023 23:33 Bicarbonate Level 20 mmol/L (Low)?? 04/24/2023 23:33 Anion Gap 15 ()?? 04/24/2023 23:33 BUN 14 mg/dL ()?? 04/24/2023 23:33 Creatinine-Blood 0.7 mg/dL ()?? 04/24/2023 23:33 Estimated GFR Creatinine 113 ML/MIN/1.73 M2 ()?? 04/24/2023 23:33 Alkaline Phosphatase 63 units/L ()?? 04/24/2023 23:33 Lipase 59 units/L ()?? 04/24/2023 23:33 AST (SGOT) 67 units/L (High)?? 04/24/2023 23:33 ALT (SGPT) 20 units/L ()?? 04/24/2023 23:33 Bilirubin, Total 1.4 mg/dL (High)?? 04/24/2023 23:33 ?? COAG INR 1.4 (High)?? 04/24/2023 23:33 Protime (PT) 14.3 seconds (High)?? 04/24/2023 23:33 ?? MISC. CHEMISTRY Ammonia, Venous 78 ??mole/L (High)?? 04/24/2023 23:33 Hold Green Top SPECIMEN DISCARDED AFTER 1 WEEK ()?? 04/24/2023 23:33 Hold Mcguire Top SPECIMEN DISCARDED AFTER 1 WEEK ()?? 04/24/2023 23:33 ?? TOXICOLOGY/TDM Ethanol, Serum or Plasma NONE DETECTED mg/dL ()?? 04/24/2023 23:33 ?? VIROLOGY COVID-19 by RT-PCR NEGATIVE ()?? 04/25/2023 00:56 ? EKG study * Event Display: ECG 12-Lead Authored Date: Please click on pdf link to open report * Event Display: ECG 12-Lead Authored Date: Ventricular Rate: 93 BPM Atrial Rate: 93 BPM P-R Interval: 142 ms QRS Duration: 82 ms Q-T Interval: 388 ms QTC Calculation(Bazett): 482 ms P Bighorn: -28 degrees R Bighorn: -28 degrees T Bighorn: 22 degrees Normal sinus rhythm Minimal voltage criteria for LVH, may be normal variant ( R in aVL ) Borderline ECG When compared with ECG of 04-APR-2023 09:29, No significant change was found Confirmed by ALVINO DOSS ([id number]) on 04/25/2023 7:24:54 AM [place]: ALVINO DOSS [facility] Progress note * Ana Mann: PERFORM, SIGN, VERIFY Event Display: Progress [facility] Authored Date: Patient: PATRICIA MORENO [facility]: [id number] Age: 47 years Sex: Male : 1975 Associated Diagnoses: None Author: Ana Mann Findings Problem Related to Alteration in Neurological : Alteration in Neurological Function/new 04/30/2023 19:17 EDT Alteration in Neuro status Related to Other: AMS Goals & Outcomes, Neurological Pt will be hemodynamically stable, Pt will be Neurologically stable, Resolved problem, Goals/Outcomes met Interventions, Neurological Assess/monitor for abnormal posturing, Assess/monitor for gaze pattern/extraocular movements, Assess/monitor for increased Intracranial Pressure, Assess/monitor neurologicstatus, Emergency airway equipment at bedside, If no bowel movement in 3 days activate bowel regime, Kimball alternate means of communication, Keep patient's head & body in good alignment, Maintain HOB at least 30 deg, Maintain patient safety if unsteady gait, Monitor Fluid & Electrolytes, Serum Osmolarity, Monitor for headaches, nausea, vomiting, Physical assessment per unit standards,Teach & encourage deep breath & cough exercises, Teach and encourage use of Incentive spirometer, Teach pt/caregiver discharge plan & follow up care, Teach pt/caregiver on plan of care, treatment, s/s & meds, Teach pt/caregiver on use of pain scale BH Goals/Interventions, Neurological Yes Neurological, Problem Start 04/26/2023 19:25 Reviewed plan with, Neurological Patient, Family/caregiver not available Patient Progression, Neurological Pt progressing according to plan . Nursing Data Cardiac Data. : Cardiac Data. 04/30/2023 21:00 EDT Cardiovascular WNL . Gastrointestinal Data. : Gastrointestinal Data. 04/30/2023 21:00 EDT Gastrointestinal Symptoms Other: Multiple BM Abdomen Soft, Non-tender Bowel Sounds All Quadrants Present Bowel Sounds LUQ Present Bowel Sounds RUQ Present Bowel Sounds LLQ Present Bowel Sounds RLQ Present Last Bowel Movement 04/24/2023 GI WNL except Normal Bowel Pattern Other: 3 BMs Normal Bowel Pattern Other: 3 BMs . Genitourinary Data. : Genitourinary Data. 04/30/2023 21:00 EDT WNL . HEENT Data. : HEENT Assessment 04/30/2023 21:00 EDT HEENT, Adult WNL . Integumentary Data. : Integumentary Data. 04/30/2023 21:00 EDT Skin Color Normal for ethnicity Skin Integrity Not intact Sensory Perception No impairment Integumentary WNL except . IV Lines. : IV Lines. 04/30/2023 21:49 EDT Right Forearm proximal 22 gauge 1 inch Peripheral IV Activity: Assess Peripheral IV Assess Compare Touch: A/C/T Done, no complications Peripheral IV Site Assessment: Clean, dry and intact, Flushes Well Peripheral IV Site Drainage: None Peripheral IV Dressing: Clean, dry and intact Peripheral IV Intervention: Flushed . Musculoskeletal Data. : Musculoskeletal Data. 04/30/2023 21:00 EDT Musculoskeletal WNL . Neurological Data. : Neurological Data. 04/30/2023 21:00 EDT Neurological Symptoms Alteration in level of consciousness, Impaired mental ability, Lack of coordination, Unsteady gait/Ataxia, Weakness or loss of muscle strength Level of Consciousness Confusion Orientated to person, place, time Person, Place Facial Symmetry Intact Characteristics of Speech Clear and normal Pupil description, left Regular Pupil description, right Regular Pupil reaction, left Brisk Pupil reaction, right Brisk Strength LUE 5-Active movement against gravity & full resistance Strength RUE 5-Active movement against gravity & full resistance Strength LLE 5-Active movement against gravity & full resistance Strength RLE 5-Active movement against gravity & full resistance Tone LUE Normal Tone RUE Normal Tone LLE Normal Tone RLE Normal Sensation LUE Intact Sensation RUE Intact Sensation LLE Intact Sensation RLE Intact Movement LUE Spontaneous Movement RUE Spontaneous Movement LLE Spontaneous Movement RLE Spontaneous Gait Unsteady, Unsteady with feet together Response Eye Opening Spontaneously Motor Response-Adult Obeys commands Verbal Response-Adult Disoriented and converses Timi Coma Score 14 Neuro WNL except Eyes and Movements Conjugate gaze: Move in same direction at same speed Memory technician terminal and repeater loss Swallow - Neuro Normal . Evaluation Patient AOx2, self and place, he's on the unit for alcohol detox, cuff to the bed with guard in theroom. He's doing alot better than when he first came, no tremors or chills. He denied headache, dizziness. no blurry or double vision, face, is symmetrical, tongue in the midline and speech is clear today. Pupils are dialated. LS are clear bilateral There's equal rise fall of the thoracic cavity during breathing and chest is symmetrical. No sign of chest discomfort. No Edema. Abd soft, no grimaceon face when palpated on all four quad. +BS, last BM 04/29/23, uses the commode at bedside, take pills whole. urine is CYO. Patient is continent both ways. LEDBETTER, Sensation and strength in all extremities, full strength in both RLU&LE=5/5, Able to lift feet off the bed, dorsiflex and planter flexextremities, wiggle toes. IV in the right arm, flushes well. Pt remain on Sz precaution. no Sz activity throughout the shift. Patient monitor throughout the shift Q4, no change in neuro status, safety maintained. Bed lock in the lowest position with bed alarm on and call hines in reach. See CIS for a ssessment.. * Do LEARNING CENTER COORDINATOR, Vi T: MODIFY, MODIFY, MODIFY, PERFORM Event Display: Progress Note Hospital Authored Date: Patient: ??PATRICIA MORENO ? Age:??47 Years?Sex:??Male?:??1975?? Subjective Patient alert oriented x2, sometimes confused.?? Feeling better Lab and vital signs stable Patient denies any fever, chills Review of Systems All other reviews of systems are negative except mentioned above Objective Vital Signs?? Temperature: 98 DegF (04/30/23 11:11:00) Temperature Route: Temporal (04/30/23 11:11:00) Pulse Rate: 86 bpm (04/30/23 11:11:00) Respiratory Rate: 20 br/min (04/30/23 11:11:00) Systolic Blood Pressure: 111 mm Hg (04/30/23 11:11:00) Diastolic Blood Pressure: 70 mm Hg (04/30/23 11:11:00) Blood pressure sites: Arm, right (04/30/23 11:11:00) Mean Arterial Pressure: 84 mm Hg (04/30/23 11:11:00) Pulse Pressure: 41 mm Hg (04/30/23 11:11:00) Oxygen Saturation: 98 % (04/30/23 11:11:00) Mode of Delivery (Oxygen): Room air (04/30/23 11:11:00) Early Warning Score: 4 (04/30/23 12:12:13) ? Intake/Output? 04/25 01:49 04/30 07:00 04/29 07:00 04/28 07:00 04/27 07:00 ?? 04/30 16:13 04/30 16:13 04/30 06:59 04/29 06:59 04/28 06:59 Intake ? 4670 ?840 ? 1490 ? 1490 ?530 Output ? 3100 ?800 ? 1400 ?750 ?150 Net Total ? 1570 ? 40 ? 90 ?740 ?380 ? Urine Count ? 14 ?1 ?2 ?4 ?7 ? Physical Exam Constitutional: Alert, in no acute distress. Head: Normocephalic. Eyes: PERRLA. EOMI. Respiratory:??Clear to auscultation. No wheezing or rhonchi.??No use of accessory muscles.?? Cardiovascular:??S1 S2 regular. No murmurs, rubs or gallops. Gastrointestinal:??Abdomen soft, non-tender, non-distended. Normal bowel sounds.?? Extremities: No lower extremity pitting edema.?? Neurologic:??AAOx2-3, confused. Speech normal, no facial droop. No focal neurological deficits. Moves all extremities spontaneously.?? Skin:??No rash.?? Psychiatric: Normal mood and affect. _ Inpatient Medications Medications (13) Active SCHEDULED: (8) Enoxaparin 40 mg Inj (Enoxaparin Inj) ??40 mg 0.4 mL, Subcutaneous Injection, Daily Folic Acid 1 mg Tablet (Folic Acid Tablet) ??1 mg, By Mouth, Daily Lactulose 20 Gm/30mL Syrup (lactulose 10 gm/15 ml oral syrup) ??20 Gm 30 mL, By Mouth, 3 times a day Magnesium Oxide 400 mg Tablet (magnesium oxide 400 mg oral tablet) ??400 mg, By Mouth, 2 times a day Multivitamin Tablet ??1 tablet, By Mouth, Daily NaCl 0.9% Flush 3ml (NaCL 0.9% Flush) ??3 mL, IV Push, Every 8 hours Pyridoxine 50 mg Tablet (Pyridoxine Tablet) ??50 mg, By Mouth, Daily Thiamine 100 mg Inj (Thiamine Inj) ??200 mg 2 mL, IV Push Slowly, Daily CONTINUOUS: (0) PRN: (5) Acetaminophen 325 mg Tablet (Acetaminophen Tablet) ??650 mg, By Mouth, Every 4 hours Melatonin 3 mg Tablet (Melatonin Tablet) ??3 mg, By Mouth, Daily at bedtime NaCl 0.9% Flush 3ml (NaCL 0.9% Flush) ??3 mL, IV Push, Every 8 hours Senna 8.6 mg / Docusate 50 mg tablet (Docusate/Senna Tablet) ??1 tablet, By Mouth, 2 times a day Simethicone 80 mg Chewable Tablet (Simethicone Tablet) ??80 mg, Chew, 3 times a day ? Results Recent Labs BLOOD COUNT & DIFF WBC 4.6 k/mm3 ()?? 04/29/2023 04:24 RBC 3.29 m/mm3 (Low)?? 04/29/2023 04:24 Hgb 8.0 Gm/dL (Low)?? 04/29/2023 04:24 Hct 27.4 % (Low)?? 04/29/2023 04:24 MCV 83.3 femtoliters ()?? 04/29/2023 04:24 MCH 24.3 pg (Low)?? 04/29/2023 04:24 MCHC 29.2 g/dL (Low)?? 04/29/2023 04:24 Platelet Count 54 k/mm3 (Low)?? 04/29/2023 04:24 RDW-SD 64.5 femtoliters (High)?? 04/29/2023 04:24 MPV 10.8 femtoliters ()?? 04/29/2023 04:24 Nucleated RBC (Automated) 0.0 #/100 WBC'S ()?? 04/29/2023 04:24 Abs. NRBC 0.0 k/mm3 ()?? 04/29/2023 04:24 ?? CHEM GENERAL Sodium 133 mmol/L ()?? 04/29/2023 04:24 Potassium 4.1 mmol/L ()?? 04/29/2023 04:24 Chloride 103 mmol/L ()?? 04/29/2023 04:24 Bicarbonate Level 22 mmol/L ()?? 04/29/2023 04:24 Anion Gap 8 ()?? 04/29/2023 04:24 Glucose Level 97 mg/dL ()?? 04/29/2023 04:24 BUN 8 mg/dL ()?? 04/29/2023 04:24 Creatinine-Blood 0.6 mg/dL (Low)?? 04/29/2023 04:24 Estimated GFR Creatinine 120 ML/MIN/1.73 M2 ()?? 04/29/2023 04:24 Calcium 8.5 mg/dL (Low)?? 04/29/2023 04:24 Phosphorus 2.9 mg/dL ()?? 04/29/2023 04:24 Magnesium 1.5 mg/dL (Low)?? 04/29/2023 04:24 Protein, Total 7.0 Gm/dL ()?? 04/29/2023 04:24 Albumin 3.2 Gm/dL (Low)?? 04/29/2023 04:24 Alkaline Phosphatase 53 units/L ()?? 04/29/2023 04:24 AST (SGOT) 42 units/L (High)?? 04/29/2023 04:24 ALT (SGPT) 16 units/L ()?? 04/29/2023 04:24 Bilirubin, Total 0.8 mg/dL ()?? 04/29/2023 04:24 Bilirubin, Direct 0.4 mg/dL (High)?? 04/29/2023 04:24 Bilirubin, Indirect 0.4 mg/dL ()?? 04/29/2023 04:24 Vitamin B12 Level 1956 pg/mL (High)?? 04/29/2023 04:24 Folic Acid Level 17.5 ng/mL ()?? 04/29/2023 04:24 ?? COAG INR 1.3 (High)?? 04/29/2023 04:24 Protime (PT) 13.8 seconds (High)?? 04/29/2023 04:24 ? Assessment/Plan Diagnoses Thrombocytopenia ??(D69.6) 1. ??Hepatic encephalopathy ??(K76.82) 2. ??Alcohol dependence ??(F10.20) ?Assessment:??47-year-old gentleman alcohol use disorder, Alcohol liver cirrhosis, Child-Gill[place] A,pancytopenia, presenting to the emergency department from [facility] on section 35 (since 04/21) with altered mental status.??[place] [facility] [place] ? Metabolic??- toxic encephalopathy of unclear etiology, rule out infectious etiology Alcohol use disorder with withdrawal ??Suspect delayed alcohol withdrawal symptoms, although his last drink, according to mother, was Saturday 04/21 morning prior to being admitted to [facility]. Per law enforcement at bedside, he did not have any alcohol at rehab. He was being treated on a Librium taper. ??Possible side effect of Librium. ??Possible Hepatic encephalopathy (K76.82): ??Ammonia mildly elevated, now normal. ??CT head unremarkable. PT did not have any alcohol at rehab. He was being treated on a Librium taper. CXR- negative ??No apparent source of infection - Cont lactulose TID with goal of 2-3 BMs/day -Continue supportive care, CTM IV thiamine, multivitamin and folic acid MRI brain PT eval ?? Elevated total bilirubin ??Elevated Liver transaminases ??Due to alcohol liver cirrhosis ??Around baseline -CTM ?? Pancytopenia ??Around baseline -CTM ?? Hypomagnesia Magnesium 1.5, repleting Monitor ?? Full code DVT PX:??Lovenox subcu Disposition: Likely can discharge back to [facility]??after MRI brain Updated mom 04/30 * Ana Mann: PERFORM, SIGN, VERIFY Event Display: Progress Note Hospital Authored Date: Patient: PATRICIA MORENO Age: 47 years Sex: Male : 1975 Associated Diagnoses: None Author: Ana Mann Findings Problem Related to Alteration in Neurological : Alteration in Neurological Function/new 04/29/2023 19:57 EDT Alteration in Neuro status Related to Other: AMS Goals & Outcomes, Neurological Pt will be hemodynamically stable, Pt will be Neurologically stable, Resolved problem, Goals/Outcomes met Interventions, Neurological Assess/monitor for abnormal posturing, Assess/monitor for increased Intracranial Pressure, Assess/monitor neurologic status, Emergency airway equipment at bedside, If no bowel movement in 3 days activate bowel regime, Keep patient's head & body in good alignment, Maintain HOB at least 30 deg, Maintain patient safety if unsteady gait, Monitor for headaches, nausea, vomiting, Monitor speech fluency, aphasia, word finding difficulty, Physical assessment per unit standards, Provide emotional support to Pt/caregiver, Teach & encourage deep breath & cough exercises, Teach and encourage use of Incentive spirometer, Teach pt/caregiver discharge plan & foll ow up care, Teach pt/caregiver on plan of care, treatment, s/s & meds, Teach pt/caregiver on use of pain scale BH Goals/Interventions, Neurological Yes Neurological, Problem Start 04/26/2023 19:25 Reviewed plan with, Neurological Patient, Family/caregiver not available Patient Progression, Neurological Pt progressing according to plan . Nursing Data Cardiac Data. : Cardiac Data. 04/29/2023 21:00 EDT Cardiovascular WNL . Gastrointestinal Data. : Gastrointestinal Data. 04/29/2023 21:00 EDT Bowel Sounds All Quadrants Present Last Bowel Movement 04/29/2023 GI WNL Normal Bowel Pattern Other: 3 BMs Normal Bowel Pattern Other: 3 BMs . Genitourinary Data. : Genitourinary Data. 04/29/2023 21:00 EDT WNL . HEENT Data. : HEENT Assessment 04/29/2023 21:00 EDT HEENT, Adult WNL . Integumentary Data. : Integumentary Data. 04/29/2023 21:00 EDT Sensory Perception Slightly limited Integumentary WNL . IV Lines. : IV Lines. 04/29/2023 23:26 EDT Right Forearm proximal 22 gauge 1 inch Peripheral IV Activity: Assess Peripheral IV Assess Compare Touch: A/C/T Done, no complications Peripheral IV Site Assessment: Clean, dry and intact, Flushes Well Peripheral IV Site Drainage: None Peripheral IV Dressing: Clean, dry and intact Peripheral IV Intervention: Flushed . Musculoskeletal Data. : Musculoskeletal Data. 04/29/2023 21:00 EDT Musculoskeletal WNL . Neurological Data. : Neurological Data. 04/29/2023 21:00 EDT Neurological Symptoms Alteration in level of consciousness, Impaired mental ability, Lack of coordination, Unsteady gait/Ataxia, Weakness or loss of muscle strength Level of Consciousness Confusion Orientated to person, place, time Person, Place Facial Symmetry Intact Characteristics of Speech Clear and normal Pupil description, left Regular Pupil description, right Regular Pupil reaction, left Brisk Pupil reaction, right Brisk Strength LUE 5-Active movement against gravity & full resistance Strength RUE 5-Active movement against gravity & full resistance Strength LLE 5-Active movement against gravity & full resistance Strength RLE 5-Active movement against gravity & full resistance Tone LUE Normal Tone RUE Normal Tone LLE Normal Tone RLE Normal Movement LUE Spontaneous Movement RUE Spontaneous Movement LLE Spontaneous Movement RLE Spontaneous Gait Unsteady, Unsteady with feet together Response Eye Opening Spontaneously Motor Response-Adult Obeys commands Verbal Response-Adult Disoriented and converses [place] Coma Score 14 Neuro WNL except Eyes and Movements Conjugate gaze: Move in same direction at same speed Memory technician terminal and repeater loss Swallow - Neuro Normal . Evaluation Patient AOx2, self and place, he's on the unit for alcohol detox, cuff to the bed with guard in theroom. He's doing alot better than when he first came, no tremors or chills. He denied headache, dizziness. no blurry or double vision, face, is symmetrical, tongue in the midline and speech clear. Pupils are dialated. LS are clear bilateral There's equal rise fall of the thoracic cavity during breathing and chest is symmetrical. No sign of chest discomfort. No Edema. Abd soft, no grimace on face when palpated on all four quad. +BS, last BM 04/29/23, take pills whole. urine is CYO. Patient is continent both ways. LEDBETTER, Sensation and strength in all extremities, full strength in both RLU&LE=5/5, Able to lift feet off the bed, dorsiflex and planter flex extremities, wiggle toes. IV in the right arm, flushes well. Pt on Sz precaution no Sz activity throughout the shift. Patient monitor throughout the shift Q4, no change in neuro status, safety maintained. Bed lock in the lowest position with bed alarm on and call hines in reach. See CIS for assessment.. Note * Rosa Rosario RN: PERFORM Event Display: Discharge/Transfer Note Hospital Authored Date: Nursing Discharge Note Entered On: 05/01/2023 18:51 EDT Performed On: 05/01/2023 18:50 EDT by Rosa Rosario RN Nursing Discharge Note 2 Discharge Time : 05/01/2023 15:00 EDT Discharge Level of Care at Discharge : Correction Fac/Police/Senior Living Patient Left Unit Via : Wheelchair Patient Accompanied Off Unit with : Responsible adult DC Instructions Provided & Signed by Pt : Yes Patient Understands D/C Instructions : Yes Patient Instructions Discharge Signed : Yes Discharge Comments : no iv access information given to guard for correctional facility, pt states understanding to all discharge instructions , all questions and concerns addressed. Did Pt have Specialty Bed or Wound Vac : No Rosa Rosario RN - 05/01/2023 18:50 EDT * Do LEARNING CENTER COORDINATOR, Vi T: MODIFY, MODIFY, MODIFY, PERFORM, MODIFY, MODIFY, MODIFY, MODIFY, MODIFY Event Display: Discharge/Transfer Note Hospital Authored Date: [id number] Patient: ??PATRICIA MORENO ? Age:??47 Years?Sex:??Male?:??1975?? Patient Information Discharge Location: A Primary Care Physician: Gee Steele MD Admit Date/Time: 04/25/23 01:49 Discharge Disposition Discharge Disposition: Shelter Facility/Rehab Discharge Diagnosis Hepatic encephalopathy (K76.82) Alcohol dependence (F10.20) Thrombocytopenia (D69.6) ?? _ Discharge Medications Acamprosate (acamprosate 333 mg oral delayed release tablet)?666?Milligram?By Mouth?3 times a day with meals Chlordiazepoxide (chlordiazePOXIDE 25 mg oral capsule)?1?capsule?25?Milligram?By Mouth?2 times a day?starting 04/26/23-then 1 capsule daily ??04/28/23-04/29/23 Cyanocobalamin (Vitamin B-12 1000 mcg oral tablet)?1,000?Microgram?1?tablet?By Mouth?2 times a day Folic Acid (folic acid 1 mg oral tablet)?1?Milligram?1?tablet?By Mouth?Daily?for 90?Days Lactulose (lactulose 10 gm/15 ml oral syrup)?30?Milliliter?20?gram?By Mouth?3 times a day?for 30?Days?adjust for 2-3 BM a day Magnesium Oxide (magnesium oxide 400 mg oral tablet)?400?Milligram?By Mouth?2 times a day?for 14?Days Multivitamin (multivitamin Multiple Vitamins oral tablet)?1?tab(s)?By Mouth?Daily Thiamine (thiamine 100 mg oral tablet)?100?Milligram?1?tablet?By Mouth?2 times a day?for 90?Days ? Quality Measures Tobacco Use Treatment:? Medications Started Lactulose Magnesium Medications Discontinued none Doses Changed Increase thiamine to 100 mg twice a day Allergies Allergies ?(Active and Proposed Allergies Only) NKA? (Severity: Unknown severity, Onset: Unknown) ? PCP Follow-Up/Heads-Up Metabolic??-Alcohol use disorder with withdrawal??Possible side effect of Librium.??Possible Hepatic encephalopathy (K76.82): Cont lactulose TID with goal of 2-3 BMs/day??prescribe thiamine??multivitamin and folic acid. Follow-up PCP outpatient, Elevated total bilirubin??Elevated Liver transaminases??Due to alcohol liver cirrhosis Follow-up PCP outpatient, need referral to GI Pancytopenia??Follow-up PCP outpatient Hypomagnesia Prescribed magnesium oxide for 2 weeks. Follow-up PCP outpatient Objective Assessment and Plan ?Assessment:??47-year-old gentleman alcohol use disorder, Alcohol liver cirrhosis, Child-[place] A,pancytopenia, presenting to the emergency department from [facility] on section [address] (since 04/21) with altered mental status.??[place] [facility] [place] Mentation improved. ??Patient is doing okay and ? Metabolic??-mentation improved Alcohol use disorder with withdrawal, ??Suspect delayed alcohol withdrawal symptoms, although his last drink, according to mother, was Saturday 04/21 morning prior to being admitted to [facility]. Per law enforcement at bedside, he did not have any alcohol at rehab. He was being treated on a Librium taper. ??Possible side effect of Librium. ??Possible Hepatic encephalopathy (K76.82): ??Ammonia mildly elevated, now normal. ??CT head unremarkable. PT did not have any alcohol at rehab. He was being treated on a Librium taper. CXR- negative ??No apparent source of infection - Cont lactulose TID with goal of 2-3 BMs/day Given??IV thiamine??for 3 days, will prescribe thiamine??multivitamin and folic acid PT eval recs home Follow-up PCP outpatient, consider MRI brain outpt if continue to be confused ?? Elevated total bilirubin ??Elevated Liver transaminases ??Due to alcohol liver cirrhosis ??Around baseline Follow-up PCP outpatient, need referral to GI ?? Pancytopenia?? Around baseline. Follow-up PCP outpatient ?? Hypomagnesia Magnesium 1.5, repleting Prescribed magnesium oxide for 2 weeks Follow-up PCP outpatient ?? . Physical Exam Constitutional: Alert, in no acute distress. Head: Normocephalic. Eyes: PERRLA. EOMI. Respiratory:??Clear to auscultation. No wheezing or rhonchi.??No use of accessory muscles.?? Cardiovascular:??S1 S2 regular. No murmurs, rubs or gallops. Gastrointestinal:??Abdomen soft, non-tender, non-distended. Normal bowel sounds.?? Extremities: No lower extremity pitting edema.?? Neurologic:??AAOx2-3, confused. Speech normal, no facial droop. No focal neurological deficits. Moves all extremities spontaneously.?? Skin:??No rash.?? Psychiatric: Normal mood and affect. Pending Results Add On Lab Order ordered on 04/29/2023 MRI Brain W/O Contrast ordered on 04/30/2023 Patient Education Titles Understanding Hepatic Encephalopathy (HE)?? Alcohol Addiction?? Follow-Up Appointments Added Follow Up ?Time Frame ?Comments Gee Steele?2 to 3 weeks?Please call for appointment in 2 to3 weeks Patient Instructions Cont lactulose TID with goal of 2-3 BMs/day?? prescribe thiamine??multivitamin and folic acid. Follow-up PCP outpatient, ??need referral to GI Prescribed magnesium oxide for 2 weeks ?? if patient develops new symptoms, include severe chest pain, shortness of breath, abdominal pain, high fevers, nausea and vomiting unable to tolerate by mouth, please come back to ED Post Discharge Care Diet: Cardiac diet Activity: Ambulate with assistance ??3 times a day ??unless otherwise specified Code Status: ?? Full Resuscitation Prognosis: Good Discharge ?05/01/23 13:29:00 EDT Discharge Prescriptions ?Written, ??05/01/23 13:29:00 EDT Home Health Face to Face ^HomeHealthFTF Results Discharge Labs BLOOD COUNT & DIFF WBC 4.6 k/mm3 ()?? 04/29/2023 04:24 RBC 3.29 m/mm3 (Low)?? 04/29/2023 04:24 Hgb 8.0 Gm/dL (Low)?? 04/29/2023 04:24 Hct 27.4 % (Low)?? 04/29/2023 04:24 MCV 83.3 femtoliters ()?? 04/29/2023 04:24 MCH 24.3 pg (Low)?? 04/29/2023 04:24 MCHC 29.2 g/dL (Low)?? 04/29/2023 04:24 Platelet Count 54 k/mm3 (Low)?? 04/29/2023 04:24 RDW-SD 64.5 femtoliters (High)?? 04/29/2023 04:24 MPV 10.8 femtoliters ()?? 04/29/2023 04:24 Nucleated RBC (Automated) 0.0 #/100 WBC'S ()?? 04/29/2023 04:24 Abs. NRBC 0.0 k/mm3 ()?? 04/29/2023 04:24 Abs. Neut 2.3 k/mm3 ()?? 04/28/2023 05:38 Abs. Lymph 1.3 k/mm3 ()?? 04/28/2023 05:38 Abs. [place] 0.6 k/mm3 ()?? 04/28/2023 05:38 Abs. Eo 0.1 k/mm3 ()?? 04/28/2023 05:38 Abs. Baso 0.0 k/mm3 ()?? 04/28/2023 05:38 Neut % 52.6 % ()?? 04/28/2023 05:38 Lymph % 29.5 % ()?? 04/28/2023 05:38 [place] % 14.4 % (High)?? 04/28/2023 05:38 Eos % 2.3 % ()?? 04/28/2023 05:38 Baso % 0.7 % ()?? 04/28/2023 05:38 Imm Gran 0.5 % ()?? 04/28/2023 05:38 Abs. Imm Gran 0.0 k/mm3 ()?? 04/28/2023 05:38 ?? CHEM GENERAL Sodium 133 mmol/L ()?? 04/29/2023 04:24 Potassium 4.1 mmol/L ()?? 04/29/2023 04:24 Chloride 103 mmol/L ()?? 04/29/2023 04:24 Bicarbonate Level 22 mmol/L ()?? 04/29/2023 04:24 Anion Gap 8 ()?? 04/29/2023 04:24 Glucose Level 97 mg/dL ()?? 04/29/2023 04:24 BUN 8 mg/dL ()?? 04/29/2023 04:24 Creatinine-Blood 0.6 mg/dL (Low)?? 04/29/2023 04:24 Estimated GFR Creatinine 120 ML/MIN/1.73 M2 ()?? 04/29/2023 04:24 Calcium 8.5 mg/dL (Low)?? 04/29/2023 04:24 Phosphorus 2.9 mg/dL ()?? 04/29/2023 04:24 Magnesium 1.5 mg/dL (Low)?? 04/29/2023 04:24 Protein, Total 7.0 Gm/dL ()?? 04/29/2023 04:24 Albumin 3.2 Gm/dL (Low)?? 04/29/2023 04:24 Alkaline Phosphatase 53 units/L ()?? 04/29/2023 04:24 Lipase 59 units/L ()?? 04/24/2023 23:33 AST (SGOT) 42 units/L (High)?? 04/29/2023 04:24 ALT (SGPT) 16 units/L ()?? 04/29/2023 04:24 Bilirubin, Total 0.8 mg/dL ()?? 04/29/2023 04:24 Bilirubin, Direct 0.4 mg/dL (High)?? 04/29/2023 04:24 Bilirubin, Indirect 0.4 mg/dL ()?? 04/29/2023 04:24 Vitamin B12 Level 1956 pg/mL (High)?? 04/29/2023 04:24 Folic Acid Level 17.5 ng/mL ()?? 04/29/2023 04:24 C-Reactive Protein <0.3 mg/dL ()?? 04/26/2023 03:45 ?? COAG INR 1.3 (High)?? 04/29/2023 04:24 Protime (PT) 13.8 seconds (High)?? 04/29/2023 04:24 ?? ENDOCRINE/TUMOR MARKER TSH 2.03 uIU/mL ()?? 04/26/2023 03:45 ? HEME OTHER Sed Rate 50 mm/hr (High)?? 04/26/2023 03:45 Hold Lavender Top SPECIMEN DISCARDED AFTER 24 HOURS. ()?? 04/27/2023 12:42 ?? MISC. CHEMISTRY Ammonia, Venous 55 ??mole/L ()?? 04/26/2023 03:45 Hold Green Top SPECIMEN DISCARDED AFTER 1 WEEK ()?? 04/24/2023 23:33 Procalcitonin 0.06 ng/mL ()?? 04/26/2023 03:45 Hold Mcguire Top SPECIMEN DISCARDED AFTER 1 WEEK ()?? 04/24/2023 23:33 ?? TOXICOLOGY/TDM Ethanol, Serum or Plasma NONE DETECTED mg/dL ()?? 04/24/2023 23:33 Barbiturate Screen, Urine POSITIVE (Abnormal)?? 04/27/2023 18:50 Cannabinoid Screen, Urine NONE DETECTED ()?? 04/27/2023 18:50 Cocaine Metabolite Screen, Urine NONE DETECTED ()?? 04/27/2023 18:50 Methadone Screen, Urine NONE DETECTED ()?? 04/27/2023 18:50 Benzodiazepine Screen, Urine POSITIVE (Abnormal)?? 04/27/2023 18:50 Amphetamine Screen, Urine NONE DETECTED ()?? 04/27/2023 18:50 Opiate Screen, Urine NONE DETECTED ()?? 04/27/2023 18:50 PCP Screen, Urine NONE DETECTED ()?? 04/27/2023 18:50 Oxycodone Screen, Urine NONE DETECTED ()?? 04/27/2023 18:50 Buprenorphine, Urine Random NONE DETECTED ()?? 04/27/2023 18:50 Fentanyl Screen, Urine Result NONE DETECTED ()?? 04/27/2023 18:50 ?? UA/URINALYSIS Appear/Color, Urine YELLOW ()?? 04/27/2023 18:50 Specific [place], Urine 1.025 ()?? 04/27/2023 18:50 pH, Urine 6.0 ()?? 04/27/2023 18:50 Albumin, Urine 2+ (Abnormal)?? 04/27/2023 18:50 Glucose, Urine NEGATIVE ()?? 04/27/2023 18:50 Ketones, Urine TRACE (Abnormal)?? 04/27/2023 18:50 Bilirubin, Urine NEGATIVE ()?? 04/27/2023 18:50 Hemoglobin, Urine NEGATIVE ()?? 04/27/2023 18:50 Nitrite, Urine NEGATIVE ()?? 04/27/2023 18:50 Leukocyte, Urine NEGATIVE ()?? 04/27/2023 18:50 Urobilinogen 2 mg/dL (Abnormal)?? 04/27/2023 18:50 WBC's, Urine 2 /HPF ()?? 04/27/2023 18:50 RBC's, Urine 2 /HPF ()?? 04/27/2023 18:50 Squamous Epith <1 /HPF ()?? 04/27/2023 18:50 Mucus SLIGHT /LPF ()?? 04/27/2023 18:50 Hold Urine Culture Testing available 48 hours from time of collection. ()?? 04/27/2023 18:50 ?? VIROLOGY COVID-19 by RT-PCR NEGATIVE ()?? 04/25/2023 00:56 ? 35??minutes spent on discharge * Marlene RODRIGUEZ, Rosa: PERFORM Event Display: Patient Education/Instruction Authored Date: [id number] Inpatient Adult Discharge Instructions [place] [id number] Name: PATRICIA MORENO : 1975 Visit: 04/25/2023 01:49:00 Current Date: 05/01/2023 14:30 Account: [id number] Inpatient Adult Discharge Instructions We would like [...] and their families. Surveys are administered by [employer] ?? If further treatment with your primary care physician or another doctor is recommended, it is important for you to keep the appointment. Call your primary care physician or return to the Emergency Department immediately if your condition worsens, fails to improve, or new symptoms develop. If you need to find a doctor, you can call [facility] for a referral at [phone] or toll free at [phone] or log in to [email or web address].. ?? You can view and manage your care through the patient portal or by using a health care cristhian of your choosing. [employer] is a website that allows you to securely view your medical information including your hospital discharge summary, office visit summaries, medications and follow-up visits. You can also request appointments, renew medications, and request access to your medical information using a health care cristhian of your choosing, or just ask a question. You can enroll at [email or web address] or register during your next office visit. You have been discharged from [facility], Patient Care Unit: D5A. If you have any questions regarding these instructions after you leave, please call us and we will be happy to assist you. [facility] Your Care Team Attending Physician John FRANKS, Luz Consulting Providers Jose CARTER, Paras Kothari NP, Shakira Scott Discharging Providers LEARNING CENTER COORDINATOR, Vi T Reason for Admission -Altered mental status Your Diagnosis Hepatic encephalopathy Alcohol dependence Thrombocytopenia Tests Performed Below is a partial list of the tests performed during your hospitalization. You may have had other tests and procedures not included in this list. Please discuss all test results with your provider. Alcohol Level Alk Phos ALT Ammonia Venous Amphetamine Urine Screen AST Barbiturate Urine Screen Basic Metabolic Panel Benzodiazepine Urine Screen BUN Buprenorphine Urine Cannabinoid Urine Screen CBC CBC w/ Differential Cocaine Urine Screen COVID-19 (Novel Coronavirus), Rapid PCR Creatinine CRP Electrolytes ESR Fentanyl Screen, Urine FOLIC ACID HOLD MCGUIRE TUBE HOLD GREEN TUBE HOLD LAVENDER TUBE INR LFT's Lipase Magnesium Level Methadone Urine Opiate Screen Urine Oxycodone Screen Urine PCP Urine with Confirmation Phosphorus Level Procalcitonin Level Total Bilirubin TSH Urinalysis w/hold for Urine Culture VITAMIN B12 CT Head/Brain W/O Contrast XR Chest Portable Primary Care Provider Ivette FRANKS, [facility] Advance Directive Health Care Proxy on File Yes - Health Care Proxy Discharge Vitals Temperature: 97.4 DegF Pulse Rate: 70 bpm Respiratory Rate: 20 br/min Systolic Blood Pressure: 123 mm Hg Diastolic Blood Pressure: 76 mm Hg Oxygen Saturation: 99 % Studies Pending All tests and labs ordered during this hospital stay have been completed unless listed below. Please discuss all pending results with your provider listed above in these instructions. ?? Add On Lab Order What to do next Instructions From Your Doctor Cont lactulose TID with goal of 2-3 BMs/day?? prescribe thiamine??multivitamin and folic acid. Follow-up PCP outpatient, ??need referral to GI Prescribed magnesium oxide for 2 weeks ?? if patient develops new symptoms, include severe chest pain, shortness of breath, abdominal pain, high fevers, nausea and vomiting unable to tolerate by mouth, please come back to ED Discharge Orders Diet:??Cardiac diet Activity:??Ambulate with assistance 3 times a day unless otherwise specified Code Status:?? Full Resuscitation Prognosis:??Good You Need to Schedule the Following Appointments Follow Up with??Gee Steele When:??Within 2 to 3 weeks Why: Please call for appointment in 2 to 3 weeks Where: [address] [place] [id number] Business (1) Discharge Medications MORENO, PATRICIA :1975 Visit Date:04/25/2023 Medications: Please continue your medications until treatment is completed or stopped by your provider. Medications not listed below should be discontinued. Discuss any questions related to medications with your provider. What How Much When Instructions Next Dose New Lactulose (lactulose 10 gm/ 15 ml oral syrup) 30 Milliliter Oral 3 times a day Duration: 30 Days Refills: 3 adjust for 2-3 BM a day ?? Printed Prescription 05/01/23 at 3pm New Magnesium Oxide (magnesium oxide 400 mg oral tablet) 400 Milligram Oral Twice a day Duration: 14 Days Printed Prescription 05/01/23 at 9pm Changed Cyanocobalamin (Vitamin B-12 1000 mcg oral tablet) 1 tab(s) Oral Twice a day 05/01/23 at 9pm Changed Thiamine (thiamine 100 mg oral tablet) 1 tab(s) Oral Twice a day Duration: 90 Days Printed Prescription 05/01/23 at 9pm Unchanged Acamprosate (acamprosate 333 mg oral delayed release tablet) 666 Milligram Oral 3 times a day with meals resume home dose Unchanged Chlordiazepoxide (chlordiazePOXIDE 25 mg oral capsule) 1 capsule Oral Twice a day starting - then 1 capsule daily ??- ?? resume home dose Unchanged Folic Acid (folic acid 1 mg oral tablet) 1 tab(s) Oral Daily Duration: 90 Days Printed Prescription 05/02/23 at 9am Unchanged Multivitamin (multivitamin Multiple Vitamins oral tablet) 1 tab(s) Oral Daily Printed Prescription 05/02/23 at 9am Test Results Below is a partial list of the most recent Laboratory test results done prior to this discharge. You may have had other tests and procedures not included in this list. Please discuss all test resultswith your provider. Alcohol Level (04/24/2023) ???Ethanol, Serum or Plasma - NONE DETECTED Alk Phos (04/24/2023) ???Alkaline Phosphatase - 63 units/L ALT (04/24/2023) ???ALT (SGPT) - 20 units/L Ammonia Venous (04/26/2023) ???Ammonia, Venous - 55 ??mole/L Amphetamine Urine Screen (04/27/2023) ???Amphetamine Screen, Urine - NONE DETECTED AST (04/24/2023) ???AST (SGOT) - 67 units/L Barbiturate Urine Screen (04/27/2023) ???Barbiturate Screen, Urine - POSITIVE Basic Metabolic Panel (04/29/2023) ???Sodium - 133 mmol/L???Potassium - 4.1 mmol/L???Chloride - 103 mmol/L???Bicarbonate Level - 22 mmol/L???Anion Gap - 8???Glucose Level - 97 mg/dL???BUN - 8 mg/dL???Creatinine-Blood - 0.6 mg/dL???Estimated GFR Creatinine - 120 ML/MIN/1.73 M2???Calcium - 8.5 mg/dL Benzodiazepine Urine Screen (04/27/2023) ???Benzodiazepine Screen, Urine - POSITIVE BUN (04/24/2023) ???BUN - 14 mg/dL Buprenorphine Urine (04/27/2023) ???Buprenorphine, Urine Random - NONE DETECTED Cannabinoid Urine Screen (04/27/2023) ???Cannabinoid Screen, Urine - NONE DETECTED CBC (04/29/2023) ???WBC - 4.6 k/mm3???RBC - 3.29 m/mm3???Hgb - 8.0 Gm/dL???Hct - 27.4 %???MCV - 83.3 femtoliters???MCH - 24.3 pg???MCHC - 29.2 g/dL???Platelet Count - 54 k/mm3???RDW-SD - 64.5 femtoliters???MPV - 10.8femtoliters???Nucleated RBC (Automated) - 0.0 #/100 WBC'S???Abs. NRBC - 0.0 k/mm3 CBC w/ Differential (04/28/2023) ???WBC - 4.4 k/mm3???RBC - 3.31 m/mm3???Hgb - 8.2 Gm/dL???Hct - 27.3 %???MCV - 82.5 femtoliters???MCH - 24.8 pg???MCHC - 30.0 g/dL???Platelet Count - 47 k/mm3???RDW-SD - 62.9 femtoliters???MPV - 10.5femtoliters???Nucleated RBC (Automated) - 0.0 #/100 WBC'S???Abs. NRBC - 0.0 k/mm3???Abs. Neut - 2.3 k/mm3???Abs. Lymph - 1.3 k/mm3???Abs. [place] - 0.6 k/mm3???Abs. Eo - 0.1 k/mm3???Abs. Baso - 0.0 k/mm3???Neut % - 52.6 %???Lymph % - 29.5 %???[place] % - 14.4 %???Eos % - 2.3 %???Baso % - 0.7 %???Imm Gran- 0.5 %???Abs. Imm Gran - 0.0 k/mm3 Cocaine Urine Screen (04/27/2023) ???Cocaine Metabolite Screen, Urine - NONE DETECTED COVID-19 (Novel Coronavirus), Rapid PCR (04/25/2023) ???COVID-19 by RT-PCR - NEGATIVE Creatinine (04/28/2023) ???Creatinine-Blood - 0.5 mg/dL???Estimated GFR Creatinine - 126 ML/MIN/1.73 M2 CRP (04/26/2023) ? ?C-Reactive Protein - <0.3 mg/dL Electrolytes (04/28/2023) ???Sodium - 135 mmol/L???Potassium - 3.2 mmol/L???Chloride - 103 mmol/L???Bicarbonate Level - 21 mmol/L???Anion Gap - 11 ESR (04/26/2023) ???Sed Rate - 50 mm/hr Fentanyl Screen, Urine (04/27/2023) ???Fentanyl Screen, Urine Result - NONE DETECTED FOLIC ACID (04/29/2023) ???Folic Acid Level - 17.5 ng/mL HOLD MCGUIRE TUBE (04/24/2023) ???Hold Mcguire Top - SPECIMEN DISCARDED AFTER 1 WEEK HOLD GREEN TUBE (04/24/2023) ???Hold Green Top - SPECIMEN DISCARDED AFTER 1 WEEK HOLD LAVENDER TUBE (04/27/2023) ???Hold Lavender Top - SPECIMEN DISCARDED AFTER 24 HOURS. INR (04/29/2023) ???INR - 1.3???Protime (PT) - 13.8 seconds LFT's (04/29/2023) ???Protein, Total - 7.0 Gm/dL???Albumin - 3.2 Gm/dL???Alkaline Phosphatase - 53 units/L???AST (SGOT) - 42 units/L???ALT (SGPT) - 16 units/L???Bilirubin, Total - 0.8 mg/dL???Bilirubin, Direct - 0.4 mg/dL???Bilirubin, Indirect - 0.4 mg/dL Lipase (04/24/2023) ???Lipase - 59 units/L Magnesium Level (04/29/2023) ???Magnesium - 1.5 mg/dL Methadone Urine (04/27/2023) ???Methadone Screen, Urine - NONE DETECTED Opiate Screen Urine (04/27/2023) ???Opiate Screen, Urine - NONE DETECTED Oxycodone Screen Urine (04/27/2023) ???Oxycodone Screen, Urine - NONE DETECTED PCP Urine with Confirmation (04/27/2023) ???PCP Screen, Urine - NONE DETECTED Phosphorus Level (04/29/2023) ???Phosphorus - 2.9 mg/dL Procalcitonin Level (04/26/2023) ???Procalcitonin - 0.06 ng/mL Total Bilirubin (04/24/2023) ???Bilirubin, Total - 1.4 mg/dL TSH (04/26/2023) ???TSH - 2.03 uIU/mL Urinalysis w/hold for Urine Culture (04/27/2023) ???Appear/Color, Urine - YELLOW???Specific [place], Urine - 1.025???pH, Urine - 6.0???Albumin, Urine - 2+???Glucose, Urine - NEGATIVE???Ketones, Urine - TRACE???Bilirubin, Urine - NEGATIVE???Hemoglobin, Urine - NEGATIVE???Nitrite, Urine - NEGATIVE???Leukocyte, Urine - NEGATIVE???Urobilinogen - 2 mg/dL? ?WBC's, Urine - 2 /HPF? ?RBC's, Urine - 2 /HPF? ?Squamous Epith - <1 /HPF? ?Mucus - SLIGHT? ?Hold Urine Culture - Testing available 48 hours from time of collection. VITAMIN B12 (04/29/2023) ???Vitamin B12 Level - 1956 pg/mL Allergies (NKA means No Known Allergies) NKA Problems Active Problems??(1) Alcohol dependence?? Education Materials Below is the list of Educational Leaflet Providered with your Discharge Instructions. Magnesium Oxide Oral Tablet?? Lactulose Oral Solution?? Anatomy of the Brain?? How the Liver Works?? Addiction Recovery?? Alcoholism: Getting Help?? Understanding Hepatic Encephalopathy (HE)?? Alcohol Addiction?? Valuables and Belongings I fully understand and agree that [facility] accepts no responsibility for all my [...] to send valuables and belongings home. ?? No Valuables/Belongings: No valuables/belongings present Date for Pt to Sign Valuables/Belongings: 04/26/23 13:16:00 ?? Other Discharge Information ?? Wound Assessment?? Wound Assessment?? Wound Location I: Leg, right lower Wound Type I: Blister ? Pulmonary Rehab Status?? Pulmonary Rehab Discharge Status?? Respiratory Rate: 20 br/min ? Common Emergency Awareness Tips IS IT [...] are strongly encouraged to quit. Please call [facility] [employer] at [phone] or [phone] Systems ([phone]) or log in to [email or web address] for referrals to smoking cessation programs. ?? 195 Suicide & Crisis Lifeline is available 30/03 if you or someone you know needs to find a reason to keep living. By calling 472 you'll be connected to a skilled, trained counselor at a crisis center in your area. INPATIENT DISCHARGE INSTRUCTIONS SIGNATURE PAGE PATRICIA MORENO Location:[facility] Registration Date and Time:04/25/2023 01:49 EDT Primary Care Physician: Aristeo Steele MDnv, Attending Physician: John FRANKS, Luz, I PATRICIA MORENO, have received the above patient education materials/instructions and have verbalized understanding. If ambulance or transport services are being used I further acknowledge being given a choice of service. ?? If you need to contact me, please call me at this number: . Patient/Webbing Seamer Pound Net Name: Patient/Webbing Seamer Pound Net Signature: Relationship to Patient: Witness Name/Signature: Date: * Do LEARNING CENTER COORDINATOR, Vi T: PERFORM, SIGN, VERIFY Event Display: Patient Education Handout Authored Date: [id number] * Rosa Rosario RN: PERFORM Event Display: Patient Education Leaflets Authored Date: [id number] Magnesium Oxide Oral Tablet ?? [id number] Magnesium Oxide Oral Tablet Brands: Mag-Ox 400, Fermin' Cramp-free Uses This medicine is used for the following purposes: ??? indigestion ??? low magnesium levels ??? stomach acid reflux ??? ulcers in stomach or intestines ?? Instructions Take the medicine with food. Keep the medicine at room temperature. Avoid heat and direct light. Drink extra water while on this medicine. Adults should try to drink 6-8 cups (48 to 64 oz.) of water every day. Tell your doctor and pharmacist about all your medicines. Include prescription and faai-lmp-glztvlxuullnnyjd, vitamins, and herbal medicines. Tell your doctor if symptoms do not get better or if they get worse. ?? Cautions Tell your doctor and pharmacist if you ever had an allergic reaction to a medicine. Do not use the medication any more than instructed. It is unknown if this medicine passes into breast milk. Ask your doctor before . During , this medicine should be used only when clearly needed. Talk to your doctor about the risks and benefits. Do not start or stop any other medicines without first speaking to your doctor or pharmacist. ?? Side Effects The following is a list of some common side effects from this medicine. Please speak with your doctor about what you should do if you experience these or other side effects. ??? diarrhea ??? stomach upset or abdominal pain A few people may have an allergic reaction to this medicine. Symptoms can include difficulty breathing, skin rash, itching, swelling, or severe dizziness. If you notice any of these symptoms, seek medical help quickly. ?? Extra Please speak with your doctor, nurse, or pharmacist if you have any questions about this medicine. ?? [email or web address] IMPORTANT NOTE: This document tells you briefly how to take your medicine, but it does not tell youall there is to know about it. Your doctor or pharmacist may give you other documents about your medicine. Please talk to them if you have any questions. Always follow their advice. There is a more complete description of this medicine available in [employer]. Scan this code on your smartphone or tablet or use the web address below. You can also ask your pharmacist for a printout. If you have any questions, please ask your pharmacist. The display and use of this drug information is subject to Terms of Use. Copyright(c) 2022 [employer]. ?? The [employer]. All rights reserved. This information is not intended as a substitute for professional medical care. Always follow your healthcare professional's instructions. ?? * Rosa Rosario RN: PERFORM Event Display: Patient Education Leaflets Authored Date: [id number] Lactulose Oral Solution ?? [id number] Lactulose Oral Solution Brands: Enulose, Generlac Uses This medicine is used for the following purposes: ??? abnormal brain function ??? bowel movement ??? high ammonia levels ?? Instructions Drink the medicine. This medicine may be taken with or without food. Keep the medicine at room temperature. Avoid heat and direct light. Do not take this medicine with antacids. If you are using this medicine regularly, it is important to take each dose of medicine on time. Keep taking the medicine even if you feel well. If you forget to take a dose on time, take it as soon as you remember. If it is almost time for thenext dose, do not take the missed dose. Return to your normal schedule. Do not take 2 doses at one time. Tell your doctor and pharmacist about all your medicines. Include prescription and lnlr-fse-tdeznuumzbuymqmj, vitamins, and herbal medicines. ?? Cautions Tell your doctor and pharmacist if you ever had an allergic reaction to a medicine. Do not use the medication any more than instructed. It is unknown if this medicine passes into breast milk. Ask your doctor before . During , this medicine should be used only when clearly needed. Talk to your doctor about the risks and benefits. Do not start or stop any other medicines without first speaking to your doctor or pharmacist. Do not share this medicine with anyone who has not been prescribed this medicine. ?? Side Effects The following is a list of some common side effects from this medicine. Please speak with your doctor about what you should do if you experience these or other side effects. ??? excess gas ??? nausea ??? stomach upset or abdominal pain Call your doctor or get medical help right away if you notice any of these more serious side effects: ??? diarrhea A few people may have an allergic reaction to this medicine. Symptoms can include difficulty breathing, skin rash, itching, swelling, or severe dizziness. If you notice any of these symptoms, seek medical help quickly. ?? Extra Please speak with your doctor, nurse, or pharmacist if you have any questions about this medicine. ?? [email or web address] IMPORTANT NOTE: This document tells you briefly how to take your medicine, but it does not tell youall there is to know about it. Your doctor or pharmacist may give you other documents about your medicine. Please talk to them if you have any questions. Always follow their advice. There is a more complete description of this medicine available in [employer]. Scan this code on your smartphone or tablet or use the web address below. You can also ask your pharmacist for a printout. If you have any questions, please ask your pharmacist. The display and use of this drug information is subject to Terms of Use. Copyright(c) 2022 [employer]. ?? The [employer]. All rights reserved. This information is not intended as a substitute for professional medical care. Always follow your healthcare professional's instructions. ?? * Rosa Rosario RN: PERFORM Event Display: Patient Education Leaflets Authored Date: [id number] Anatomy of the Brain ?? 18144 Anatomy of the Brain The brain controls the body. You can move, see, talk, and feel because of the brain. And it's the brain that makes you able to think, to show emotions, and to make judgments. The brain is protected by the skull, tissue, and fluid. Functions of the brain Each part of the brain has a certain role. Some skills and traits occur in more than one section. The brain has large sections on each side called cerebral hemispheres. These control many higher functions, such as movement, language, behavior, and sensation. The right hemisphere controls the left side of the body. And the left hemisphere controls the body???s right side. Parts of each hemisphere have very specific functions, such as understanding spoken or written words, or controlling emotions. The cerebellum is mostly responsible for coordinating movements. The brain stem controls many of the functions of our head and face. This includes eye movement, face movement, and swallowing. But it also controls many vital functions, such as breathing. Many of the connections between the brain and the rest of the body must pass through the brain stem. ?? Protecting the brain There are 3 layers of tissue called meninges. This helps protect the brain.??The outer covering of tissue is called the dura mater. It closely lines the inside of the skull. The second layer is the arachnoid mater. The third layer is the gurmeet mater. It hugs the surface of the brain. The brain is cushioned and supported by a special fluid called the??cerebrospinal fluid (CSF). CSF??fills the subarachnoid space between the arachnoid mater and the gurmeet mater. Spaces within the brain called ventricles make the CSF. Arteries and veins carry blood to and from the brain. Without a fresh supply of blood, brain tissue quickly dies. ?? Last Reviewed Date: 2022 ?? [employer]. All rights reserved. This information is not intended as a substitute for professional medical care. Always follow your healthcare professional's instructions. ?? Patient Care team information Care Team Personnel Name: Zak Jiménez RN Position: [facility] ED RN W/OE and Tasks Member Role: Primary Care Nurse Name: Oneida Faustin RN Position: [facility] RN Member Role: Primary Care Nurse Name: Pamela Conklin RN Position: [facility] RN Member Role: Primary Care Nurse Name: Gogo Kingston RN Position: [facility] RN Member Role: Primary Care Nurse Name: Ashley Canas Position: [facility] RN Member Role: Primary Care Nurse Name: Di Azevedo RN Position: [facility] RN Member Role: Primary Care Nurse Name: Homer Riley RN Position: [facility] RN Member Role: Primary Care Nurse Name: Geoff Pichardo RN Position: [facility] RN Member Role: Primary Care Nurse Name: Ann Carranza RN Position: [facility] RN Member Role: Primary Care Nurse Name: Milana Bundy RN Position: S RN Member Role: Primary Care Nurse Name: Gregor Burch RN Position: [facility] RN Member Role: Primary Care Nurse Name: Rosalie Campoverde RN Position: [facility] RN Member Role: Primary Care Nurse Name: Savita Thomas RN Position: [facility] RN Member Role: Primary Care Nurse Name: Gee Steele MD Position: Reference Physician Member Role: PCP Address: Address: [address] [place] [id number] Name: *Laura PFEIFFER Attending Position: [facility] ED Medicine MD Name: Delmi Garcia Position: [facility] ED TA [facility] Member Role: Patient Care Provider Name: Madeline Saunders RN Position: [facility] ED RN W/OE and Tasks Member Role: Patient Care Provider Name: Estefani Diaz Position: [facility] ED OA Charge Member Role: ED Associate Care Team Related Persons Name: BLAINE MORENO Address: [address] [address] Name: DC MORENO Address: [address] [address]
[2024-02-12 15:45] LABS: Platelet Count 25 X10*3/uL (160-400)
[2024-02-12 15:52] LABS: Acetaminophen LAB < 3 mcg/mL (<30); Troponin-I High Sensitivity < 2.7 ng/L (<3.5-35.0)
[2024-02-12] MEDS: LORazepam 2 MG/ML VIAL IM (16:00)
[2024-02-12] MEDS: PHENobarbitaL sodium 130 MG/ML IM ONCE 438 MG IM (16:06)
[2024-02-12] MEDS: Magnesium Sulfate/H2O 2 GM/50 ML PIGGYBACK IV (16:06)
[2024-02-12 16:11] VITALS: BP 130/77; PULSE 90; RESP 18; O2SAT 95
[2024-02-12] MEDS: iohexoL 350 MG/ML 100 ML INFUS..BTL 85 ML IV (16:22)
[2024-02-12 17:07] LABS: Amphetamine Screen Urine Not Detected (Not Detect); Barbiturates, Urine POSITIVE (Not Detect); Benzodiazepines Screen Urine Not Detected (Not Detect); Buprenorphine Scr Not Detected (Not Detect); Cannabinoid Screen Urine Not Detected (Not Detect); Cocaine Screen Urine Not Detected (Not Detect); Fentanyl, urine Not Detected (Not Detect); Methadone Screen, Urine Not Detected (Not Detect); Opiate Screen Urine Not Detected (Not Detect); Oxycodone Screen Urine Not Detected (Not Detect); Phencyclidine Screen Urine Not Detected (Not Detect)
--- NOTE | 2024-02-12 17:23 | PC.NURSE ---
Pt sleeping, remains NSR on monitor with stable vitals.
[2024-02-12 17:55] VITALS: BP 129/73; PULSE 82; RESP 20; O2SAT 94
--- NOTE | 2024-02-12 18:26 | PC.NURSE ---
waiting for pharmacy for pheno due to insufficient quantity in pyxis.
--- NOTE | 2024-02-12 18:50 | PC.NURSE ---
Pt placed into aspen collar per MD order. Tolerated well
--- NOTE | 2024-02-12 19:01 | MHC.EDTECH ---
[place] [facility] [place] [phone].
--- NOTE | 2024-02-12 19:15 | PHA.MEDREC ---
Pharmacy Consult ? Medication Reconciliation Pharmacy has completed the medication reconciliation. Called mom to confirm medications and she states he is not taking any meds at home currently.
[2024-02-12 19:26] VITALS: BP 152/87; PULSE 92; RESP 20; TEMP 37.2; O2SAT 97
--- NOTE | 2024-02-12 19:37 | P.HPHOSP_ITS ---
History of Present Illness Date of Service: 02/12/24 Attending physician on admission: Carlos Vaughn Chief Complaint: Seizures Pt is a 48-year-old male with a PMH significant for alcohol use disorder with hx of alcohol withdrawal seizures?who presents to the ED after witnessed seizure. Patient reports recently being at a sober house for 8 months though left and started drinking again, up to 8+ big boy beers daily. Also endorses Percocet and cocaine use. Patient not the most reliable of historians, does not appear to remember much from the past week. Was brought in by mother who found patient at home feeling unwell with shaking, nausea, and vomiting. Patient then had a 5 minute long seizure in the car on the ride to the hospital. Patient initially arrived to the ED postictal, nonverbal and not following commands. Mother reports last withdrawal seizure 2-3 years ago. She was aware patient had been drinking, though not how much. Patient complains of auditory and visual hallucinations, seeing and hearing people who are not there or seeing bugs crawling on the ceiling. Some increased anxiety and nausea, but no vomiting. Also complains of intermittent left sided chest pain with palpitations. Patient denies any neck or back pain. Has no recollection of trauma or injury to chest or back, nor any known recent falls. However, patient reports being ?blackout drunk for most of the past week. In the ED pt was tachycardic up to 103, tachypneic up to 22, and hypertensive as high as 182/92. Labs were significant for leukopenia of 3.4, magnesium 1.1, bilirubin 1.5, AST 112, and ALT 63. CT?of head found no evidence of intracranial space-occupying mass, bleed, or infarct. CT of cervical spine found subtle radiolucent line through left pedicle of C5 concerning for possible nondisplaced fracture, narrowing of intervertebral disc spaces, small developed osteophytes from edges of endplates encroaching on neural foramen bilaterally at multiple levels, and prevertebral soft tissue swelling anterior to C7. CT of chest and abdomen/pelvis found no evidence of solid organ injury, but showed likely hepatic steatosis, splenomegaly 14 cm, likely portal hypertension portosystemic anastomose, heavy coronary calcifications, and small lung nodules. EKG demonstrated normal sinus rhythm without evidence of significant ST elevations or depressions. ED clinicians called [facility] neurosurgery who reviewed films in indicated there was no need for surgical intervention at this time. Patient was placed in a cervical collar and will need outpatient follow-up imaging and consultation post discharge. Upon further examination, [facility]surgery was not convinced imaging showed acute fracture. Suggested plain x-rays of cervical spine with flexion. Pt was treated with IVF, Ativan, Mag sulfate, and was started on phenobarb protocol. Pt will be admitted to the hospital for acute alcohol withdrawal with withdrawal seizures. Review of Systems 2 Review of Systems: Withdrawal seizures Auditory and visual hallucinations Increased anxiety Nausea, no vomiting Mild headache Palpitations, left-sided intermittent chest pain Denies neck or back pain Denies fever, chills, abdominal pain No shortness a breath or difficulty breathing PMFSH Social History Alcohol intake: current Alcohol intake frequency: 3 or more drinks per day Alcohol type: beer Smoked in Last 30 Days: No Use of substances other than those prescribed or required for medical reasons: Yes Substance Use Type: Crack/Cocaine, Painkillers and Prescription Drugs Advance Directives: No Advance Directives Information Provided: No Meds Allergies Allergy/AdvReac Type Severity Reaction Status Date / Time No Known Allergies Allergy Unverified 02/12/24 14:51 [No Known Allergies*] Active Medications: Current Medications Acetaminophen (Acetaminophen 325 Mg Tablet) 650 mg PO Q6H PRN PRN Reason: Pain, Mild (Pain Scale 1-3) Enoxaparin Sodium (Enoxaparin Sodium 40 Mg/0.4 Ml Syringe) 40 mg SUBCUT Q24H OBDULIO Thiamine HCl 100 mg/ Sodium (Chloride) 101 mls @ 202 mls/hr IV DAILY OBDULIO Melatonin (Melatonin 3 Mg Tablet) 6 mg PO BEDTIME PRN PRN Reason: Insomnia Ondansetron HCl (Ondansetron Hcl 4 Mg/2 Ml Vial) 4 mg IVPUSH Q8H PRN PRN Reason: Nausea and Vomiting Pharmacy Consult (Consult Rx Etoh Phenob Im/Po) 1 each MISCELLANE ONCE PRN; Protocol PRN Reason: Consult order Phenobarbital (Phenobarbital 15 Mg Tablet) 45 mg PO BID OBDULIO; Protocol Stop: 02/14/24 21:01 Phenobarbital (Phenobarbital 15 Mg Tablet) 15 mg PO BID OBDULIO; Protocol Stop: 02/16/24 21:01 Phenobarbital (Phenobarbital 15 Mg Tablet) 15 mg PO DAILY [facility]; Protocol Stop: 02/18/24 09:01 Phenobarbital Sodium (Phenobarbital Sodium 130 Mg/Ml Vial Im Q3hx2) 345 mg IM Q3H OBDULIO; Protocol Stop: 02/12/24 21:31 Sodium Chloride (0.9 % Sodium Chloride Flush 3 Ml Syringe) 3 ml IVFLUSH QSHIFT [facility] Home Medications ?Medication ?Instructions ?Recorded ?Confirmed ?Last Taken ?Type No Known Home Meds 02/12/24 02/12/24 Unknown History Physical Exam 2 Vital Signs and Narrative: Vital Signs: Last Vital Signs Temp 99.0 F 02/12/24 19:26 Pulse 92 02/12/24 19:26 Resp 20 02/12/24 19:26 BP 152/87 H 02/12/24 19:26 Pulse Ox 97 02/12/24 19:26 O2 Del Method Room Air 02/12/24 19:26 BMI result Body Mass Index 24.4 Constitutional: Alert, in no acute distress. Mental Status: Oriented to person, place and time. Eyes: Pupils are equal, round, and reactive to light. Ear, Nose, and Throat: Oropharynx clear, mucous membranes moist. Ears and nose without deformities. Trachea midline. Respiratory: Clear to auscultation bilaterally. No wheezing, rales, or rhonchi. Cardiovascular: S1, S2 regular rhythm, tacycardic. 2/6 murmur heard at right sternal border. Gastrointestinal: Abdomen soft, non-tender, non-distended. Normal bowel sounds. Neurologic: Cranial nerves II-XII are grossly intact bilaterally. No focal neurological deficits. Moves all extremities spontaneously. Skin: Warm, dry. Musculoskeletal: No cyanosis or clubbing. Pt wearing c-collar. Extremities: No edema. Results Labs 02/12/24 15:04 02/12/24 15:04 Labs: Laboratory Results - last 24 hr 02/12/24 02/12/24 15:04 16:42 MCV 83.9 MCH 29.5 MCHC 35.2 RDW 13.7 Plt Count 25 L MPV Not Reportable Immature Gran % (Auto) 0.6 H Neut % (Auto) 75.8 H Lymph % (Auto) 16.0 L Mccracken % (Auto) 6.7 Eos % (Auto) 0.3 Baso % (Auto) 0.6 Lymph # (Auto) 0.6 L Mccracken # (Auto) 0.2 Eos # (Auto) 0.0 Baso # (Auto) 0.0 Abs Immat Gran (auto) 0.02 Absolute Neuts (auto) 2.6 Absolute Nucleated RBC 0.000 Nucleated RBC % (auto) 0.0 Anion Gap 17 Estim Creat Clear Calc 134.1 Estimated GFR > 60 Random Glucose 96 Calcium 9.3 Magnesium 1.1 L* Total Bilirubin 1.5 H AST 112 H ALT 63 H Alkaline Phosphatase 91 Troponin I High Sens < 2.7 Total Protein 8.2 H Albumin 4.0 Salicylates < 5.0 L Urine Opiates Screen Not Detected Ur Buprenorphine Scrn Not Detected Ur Oxycodone Screen Not Detected Urine Methadone Screen Not Detected Urine Fentanyl Screen Not Detected Acetaminophen < 3 Ur Barbiturates Screen POSITIVE H Ur Phencyclidine Scrn Not Detected Ur Amphetamines Screen Not Detected U Benzodiazepines Scrn Not Detected Urine Cocaine Screen Not Detected U Marijuana (THC) Screen Not Detected Ethyl Alcohol 44 Imaging Radiologist's Impressions: Impressions Cervical Spine CT 02/12/24 16:27 IMPRESSION: 1. Subtle radiolucent line through the left pedicle of C5 concerning for possible nondisplaced fracture. This does not involve the central canal. 2. Narrowing of intervertebral disc spaces especially at C5-C6 and developed small osteophyte from the edges of endplates encroaching on the neural foramen bilaterally at multiple levels. 3. Prevertebral soft tissue swelling anterior to C7. 4. Would recommend recommend immobilization, follow-up MRI. (Referring physician staff is being called, by physician staff assistance, to be alerted of the above critical findings and recommendations.) Age 602/12/2024 6:[address] 02/12/24 16:27 IMPRESSION: No CT evidence of intracranial space-occupying mass, bleed or infarct. Abdomen/Pelvis CT 02/12/24 16:28 IMPRESSION: 1. No CT evidence of solid organ injury. 2. Enlarged diffusely hypodense liver suggesting hepatic steatosis. 3. Splenomegaly 14 cm. 4. There is prominence of the portal vein, varices around the umbilicus and gastroesophageal junction, this is suspicious for portal hypertension portosystemic anastomosis. No ascites. 5. Mildly prominent retroperitoneal para-aortic lymph nodes uncertain etiology, no bulky adenopathy. 6. Heavy coronary calcifications. 7. There are tiny lung nodules largest 7 mm pleural-based right upper lobe. According to the UPDATED 2017 Fleischner Society recommendations, the advised follow-up imaging for solid nodules <6 mm in the middle/lower lobes is no routine follow up. Chest CT 02/12/24 16:28 IMPRESSION: 1. No CT evidence of solid organ injury. 2. Enlarged diffusely hypodense liver suggesting hepatic steatosis. 3. Splenomegaly 14 cm. 4. There is prominence of the portal vein, varices around the umbilicus and gastroesophageal junction, this is suspicious for portal hypertension portosystemic anastomosis. No ascites. 5. Mildly prominent retroperitoneal para-aortic lymph nodes uncertain etiology, no bulky adenopathy. 6. Heavy coronary calcifications. 7. There are tiny lung nodules largest 7 mm pleural-based right upper lobe. According to the UPDATED 2017 Fleischner Society recommendations, the advised follow-up imaging for solid nodules <6 mm in the middle/lower lobes is no routine follow up. Assessment and Plan (1) Alcohol withdrawal seizure: Status: Acute Plan Pt is a 48-year-old male with a PMH significant for alcohol use disorder with hx of alcohol withdrawal seizures?who presents to the ED after witnessed seizure. Patient reports recently being at a sober house for 8 months though left and started drinking again, up to 8+ big boy beers daily. Pt was treated with IVF, Ativan, Mag sulfate, and was started on phenobarb protocol. Pt will be admitted to the hospital for acute alcohol withdrawal with withdrawal seizures. Acute alcohol withdrawal with seizures Patient has been drinking heavily the past week+, unclear when last drink was History of alcohol withdrawal with seizures Witnessed seizure in the car on the ride to the hospital Patient with auditory and visual hallucinations, increased anxiety, palpitations, nausea Patient started on phenobarb protocol in the ED, continue Daily multivitamin, thiamine, folic acid Famotidine IVF CIWA scale Seizure precautions Addiction medicine consult Monitor on telemetry Question of cervical fracture CT of cervical spine with subtle radiolucent line through left pedicle of C5 concerning for possible nondisplaced fracture Patient was initially placed in C-collar ED clinician contacted [facility] neurosurgery who reviewed films and said no surgical intervention necessary at this time [facility] did not find convincing evidence for C5 fracture, suggested plain x-ray of C-spine with flexion [facility] neurosurgery will review x-rays and advise accordingly Patient's should stay in C collar for the time being Hypomagnesemia Magnesium 1.1 at time of presentation Supplemented by IV and p.o. Mag in the ED Follow labs, supplement as necessary Full Code Attending:?Dr. Vaughn DVT Prophylaxis: Lovenox Pt will require a hospitalization of at least two nights for treatment of?acute alcohol withdrawal with withdrawal seizure. Patient will need administration of phenobarb protocol to prevent delirium tremens, close monitoring of labs, cardiac function, and vitals, as well as electrolyte supplementation as necessary. Quality Stroke Does the patient have a stroke diagnosis?: No VTE Prior VTE?: No VTE Risk Level:: Medical - moderate - high VTE Device Contraindication: Treatment Not Indicated VTE Drug Contraindication: N/A - Med Ordered
[2024-02-12] MEDS: Thiamine HCL 100 MG in 0.9 % Sodium Chloride 100 ML 202 MG IV (19:46)
[2024-02-12] MEDS: Enoxaparin Sodium 40 MG/0.4 ML SYRINGE SUBCUT (19:46)
[2024-02-12] MEDS: PHENobarbitaL sodium 130 MG/ML VIAL IM Q3Hx2 345 MG IM ×2 (19:47→22:39)
--- NOTE | 2024-02-12 19:59 | PC.NURSE ---
this rn assumed care of pt, pt resting in stretcher no acute distress noted. aspen collar in place at this time. pt denies pain.
--- NOTE | 2024-02-12 20:36 | PC.NURSE ---
pt to CT at this time.
[2024-02-12 22:38] VITALS: BP 142/76; PULSE 81; RESP 17; O2SAT 98
--- NOTE | 2024-02-12 22:42 | PC.NURSE ---
pt medicated per mar, CIWA=1
--- NOTE | 2024-02-12 22:47 | PC.NURSE ---
pt assisted in repositioning in bed, c-spine held at this time, pt reports being more comfortable.
[2024-02-13] MEDS: 0.9 % Sodium Chloride Flush 3 ML SYRINGE IVFLUSH (00:13)
[2024-02-13 04:15] VITALS: BP 147/83; PULSE 78; RESP 20; TEMP 36.7; O2SAT 95
[2024-02-13 06:00] VITALS: BP 164/98; PULSE 84; RESP 19; TEMP 36.4; O2SAT 98
[2024-02-13 06:16] LABS: MANUAL DIFF FLAG NO
[2024-02-13 06:26] LABS: Basophils Percent Auto 0.2 % (0-2); Eosinophils Absolute Auto 0.1 X10*3/uL (0.0-0.4); Eosinophils Percent Auto 1.2 % (0-4); Hematocrit 39.8 % (42.0-52.0); Hemoglobin 14.2 g/dl (14.0-18.0); Imm Gran Abs Auto 0.01 X10*3/uL (0.00-0.03); Imm Gran Pct Auto 0.2 % (0.0-0.4); Lymphocytes Absolute Auto 0.7 X10*3/uL (1.2-4.9); Lymphocytes Percent Auto 16.9 % (20-40); Mean Corpuscular HGB Conc 35.7 g/dl (31.0-36.0); Mean Corpuscular Hemoglobin 30.1 pg (27.0-33.0); Mean Corpuscular Volume 84.3 fL (80.0-98.0); Mean Platelet Volume 11.8 fL (9.4-12.4); Monocytes Absolute Auto 0.4 X10*3/uL (0.1-1.2); Monocytes Percent Auto 10.1 % (2-11); Neutrophils Percent Auto 71.4 % (45-73); Platelet Count 23 X10*3/uL (160-400); Red Blood Count 4.72 X10*6/uL (4.60-5.80); Red Cell Distribution Width 13.5 % (11.0-16.0); White Blood Count 4.1 X10*3/uL (4.8-10.8)
[2024-02-13 06:40] LABS: Anion Gap 18 (12-20); Blood Urea Nitrogen 6 mg/dL (9-16); Calcium 9.2 mg/dL (8.4-10.2); Carbon Dioxide 22 mmol/L (22-29); Chloride 99 mmol/L (96-108); Creatinine Clr Calc Pharmacy 134.1; Estimated Glomerular Filt Rate > 60; Glucose Random 89 mg/dL (60-115); Magnesium 1.6 mg/dL (1.6-2.6); Potassium 3.7 mmol/L (3.3-5.1); Sodium 135 mmol/L (135-145)
[2024-02-13 07:22] VITALS: BP 149/86; PULSE 87; RESP 16; TEMP 36.8; O2SAT 96
[2024-02-13] MEDS: Acetaminophen 325 MG TABLET 650 MG PO (07:24)
--- NOTE | 2024-02-13 07:30 | PC.NURSE ---
patient medicated with prn tylenol for pain 06/16, privider aware
[2024-02-13] MEDS: Thiamine HCL 100 MG in 0.9 % Sodium Chloride 100 ML 202 MG IV (09:44)
[2024-02-13] MEDS: PHENobarbitaL 15 MG TABLET 45 MG PO ×2 (09:47→20:31)
[2024-02-13] MEDS: Famotidine 20 MG TABLET PO ×2 (09:48→20:31)
[2024-02-13] MEDS: Multivitamin TABLET 1 TAB PO (09:48)
[2024-02-13] MEDS: Folic Acid 1 MG TABLET PO (09:48)
--- NOTE | 2024-02-13 09:50 | PC.NURSE ---
patient resting quietly in bed, respirations equal and unlabored, skin dry and intact. patent is alert and oriented, aspen collar in place. VSS, medicated per MAR
--- NOTE | 2024-02-13 12:34 | P.PNIM_ITS ---
Subjective Subjective Date of Service: 02/17/24 Interval History: seen and examined this AM denies neck pain, denies numbness tingling/weakness reports hunger otherwise no complaints Review of Systems Negative except HPI/interval history. Physical Exam 2 Vital Signs: Vital Signs: Last Vital Signs Temp 98.3 F 02/13/24 07:22 Pulse 87 02/13/24 07:22 Resp 16 02/13/24 07:22 BP 149/86 H 02/13/24 07:22 Pulse Ox 96 02/13/24 07:22 O2 Del Method Room Air 02/13/24 07:22 BMI result Body Mass Index 24.4 Const: Other: General - no acute distress, appears comfortable Cardiovascular - regular rate and rhythm, S1-S2 Lungs - normal respiratory effort, clear to auscultation bilaterally, no wheezing Abdomen - soft, nontender, no rebound or guarding Extremities - no edema bilaterally Neuro - awake and alert, no focal deficits; c-spine in place Objective Data Active Medications Acetaminophen (Acetaminophen 325 Mg Tablet) 650 mg PO Q6H PRN PRN Reason: Pain, Mild (Pain Scale 1-3) Last Admin: 02/13/24 07:24 Dose: 650 mg Documented By: ISRAEL Enoxaparin Sodium (Enoxaparin Sodium 40 Mg/0.4 Ml Syringe) 40 mg SUBCUT Q24H [facility] Last Admin: 02/12/24 19:46 Dose: 40 mg Documented By: AURORA Famotidine (Famotidine 20 Mg Tablet) 20 mg PO BID [facility] Last Admin: 02/13/24 09:48 Dose: 20 mg Documented By: ISRAEL Folic Acid (Folic Acid 1 Mg Tablet) 1 mg PO DAILY [facility] Stop: 02/16/24 08:59 Last Admin: 02/13/24 09:48 Dose: 1 mg Documented By: ISRAEL Thiamine HCl 100 mg/ Sodium (Chloride) 101 mls @ 202 mls/hr IV DAILY [facility] Last Infusion: 02/13/24 10:30 Dose: Infused Documented By: ISRAEL Melatonin (Melatonin 3 Mg Tablet) 6 mg PO BEDTIME PRN PRN Reason: Insomnia Multivitamins/Vitamin C (Multivitamin Tablet) 1 tab PO DAILY [facility] Stop: 02/16/24 08:59 Last Admin: 02/13/24 09:48 Dose: 1 tab Documented By: ISRAEL Ondansetron HCl (Ondansetron Hcl 4 Mg/2 Ml Vial) 4 mg IVPUSH Q8H PRN PRN Reason: Nausea and Vomiting Pharmacy Consult (Consult Rx Etoh Phenob Im/Po) 1 each MISCELLANE ONCE PRN; Protocol PRN Reason: Consult order Phenobarbital (Phenobarbital 15 Mg Tablet) 45 mg PO BID [facility]; Protocol Stop: 02/14/24 21:01 Last Admin: 02/13/24 09:47 Dose: 45 mg Documented By: ISRAEL Phenobarbital (Phenobarbital 15 Mg Tablet) 15 mg PO BID [facility]; Protocol Stop: 02/16/24 21:01 Phenobarbital (Phenobarbital 15 Mg Tablet) 15 mg PO DAILY [facility]; Protocol Stop: 02/18/24 09:01 Sodium Chloride (0.9 % Sodium Chloride Flush 3 Ml Syringe) 3 ml IVFLUSH QSHIFT [facility] Last Admin: 02/13/24 07:31 Dose: Not Given Documented By: ISRAEL Non-Admin Reason: See Note Labs 02/13/24 05:14 02/16/24 08:28 Labs: Laboratory Results - last 24 hr 02/12/24 02/12/24 02/13/24 15:04 16:42 05:14 MCV 83.9 84.3 MCH 29.5 30.1 MCHC 35.2 35.7 RDW 13.7 13.5 Plt Count 25 L 23 L MPV Not Reportable 11.8 Immature Gran % (Auto) 0.6 H 0.2 Neut % (Auto) 75.8 H 71.4 Lymph % (Auto) 16.0 L 16.9 L Menard % (Auto) 6.7 10.1 Eos % (Auto) 0.3 1.2 Baso % (Auto) 0.6 0.2 Lymph # (Auto) 0.6 L 0.7 L [place] # (Auto) 0.2 0.4 Eos # (Auto) 0.0 0.1 Baso # (Auto) 0.0 0.0 Abs Immat Gran (auto) 0.02 0.01 Absolute Neuts (auto) 2.6 3.0 Absolute Nucleated RBC 0.000 0.000 Nucleated RBC % (auto) 0.0 0.0 Anion Gap 17 18 Estim Creat Clear Calc 134.1 134.1 Estimated GFR > 60 > 60 Random Glucose 96 89 Calcium 9.3 9.2 Magnesium 1.1 L* 1.6 Total Bilirubin 1.5 H AST 112 H ALT 63 H Alkaline Phosphatase 91 Troponin I High Sens < 2.7 Total Protein 8.2 H Albumin 4.0 Salicylates < 5.0 L Urine Opiates Screen Not Detected Ur Buprenorphine Scrn Not Detected Ur Oxycodone Screen Not Detected Urine Methadone Screen Not Detected Urine Fentanyl Screen Not Detected Acetaminophen < 3 Ur Barbiturates Screen POSITIVE H Ur Phencyclidine Scrn Not Detected Ur Amphetamines Screen Not Detected U Benzodiazepines Scrn Not Detected Urine Cocaine Screen Not Detected U Marijuana (THC) Screen Not Detected Ethyl Alcohol 44 Assessment and Plan (1) Portal hypertension: Status: Acute Plan 48 yo M with a history of alcohol abuse who presented to the ED with seizures 1. Alcohol withdrawal with seizures Last drink , 02/11 continue phenobarb per protocol thiamin ivf seizure precatusions 2. Question of c-spine injury CT abnormal and flex/extension xr suggest MR -- which is ordered maintain c-collar at this time 3. hypoMg repleted IV and improved monitor 4. thrombcytopenia/leukopenia likey secondary to alcohol appaer around baseline monitor 5. Cirrhosis with portal hypertension and varices noted on imaging will need GI evaluation -- will place consult Full Code DVT pptx, mechanical due to thrombocytopenia Quality Stroke Does the patient have a stroke diagnosis?: No VTE Prior VTE?: No VTE Risk Level:: Medical - moderate - high VTE Device Contraindication: Treatment Not Indicated VTE Drug Contraindication: N/A - Med Ordered
[2024-02-13] MEDS: Lactated Ringers 1,000 ML 100 ML IVCONT (13:04)
[2024-02-13 15:27] VITALS: BP 139/81; PULSE 80; RESP 18; TEMP 36.8; O2SAT 98
[2024-02-13 17:16] VITALS: BP 161/88; PULSE 86; RESP 15; TEMP 36.3; O2SAT 97
[2024-02-13 20:00] VITALS: BP 129/83; PULSE 97; RESP 20; TEMP 36.3; O2SAT 96
[2024-02-13] MEDS: Melatonin 3 MG TABLET 6 MG PO (20:31)
[2024-02-14] MEDS: Lactated Ringers 1,000 ML 100 ML IVCONT (00:05)
[2024-02-14 00:12] VITALS: BMI 22.1
[2024-02-14 03:32] VITALS: BP 130/80; PULSE 94; RESP 20; TEMP 36.1; O2SAT 96
[2024-02-14 07:18] VITALS: BP 128/82; PULSE 72; RESP 18; TEMP 36.9; O2SAT 96
[2024-02-14] MEDS: Thiamine HCL 100 MG in 0.9 % Sodium Chloride 100 ML 202 MG IV (08:41)
[2024-02-14] MEDS: Multivitamin TABLET 1 TAB PO (08:41)
[2024-02-14] MEDS: Folic Acid 1 MG TABLET PO (08:41)
[2024-02-14] MEDS: Famotidine 20 MG TABLET PO ×2 (08:41→20:04)
[2024-02-14] MEDS: PHENobarbitaL 15 MG TABLET 45 MG PO ×2 (08:42→20:04)
--- NOTE | 2024-02-14 10:36 | P.PNIM_ITS ---
Subjective Subjective Date of Service: 02/14/24 Interval History: seen and examined reports no complaints d/w him re: referral to comprehensive care clinic -- will let me know denies neck pain Physical Exam 2 Vital Signs: Vital Signs: Last Vital Signs Temp 98.4 F 02/14/24 07:18 Pulse 72 02/14/24 07:18 Resp 18 02/14/24 07:18 BP 128/82 02/14/24 07:18 Pulse Ox 96 02/14/24 07:18 O2 Del Method Room Air 02/14/24 07:18 BMI result Body Mass Index 22.1 Const: Other: General - no acute distress, appears comfortable Cardiovascular - regular rate and rhythm, S1-S2 Lungs - normal respiratory effort, clear to auscultation bilaterally, no wheezing Abdomen - soft, nontender, no rebound or guarding Extremities - no edema bilaterally Neuro - awake and alert, no focal deficits Objective Data Active Medications Acetaminophen (Acetaminophen 325 Mg Tablet) 650 mg PO Q6H PRN PRN Reason: Pain, Mild (Pain Scale 1-3) Last Admin: 02/13/24 07:24 Dose: 650 mg Documented By: ISRAEL Famotidine (Famotidine 20 Mg Tablet) 20 mg PO BID [facility] Last Admin: 02/14/24 08:41 Dose: 20 mg Documented By: KENDALL Folic Acid (Folic Acid 1 Mg Tablet) 1 mg PO DAILY [facility] Stop: 02/16/24 08:59 Last Admin: 02/14/24 08:41 Dose: 1 mg Documented By: KENDALL Thiamine HCl 100 mg/ Sodium (Chloride) 101 mls @ 202 mls/hr IV DAILY [facility] Last Infusion: 02/14/24 09:16 Dose: Infused Documented By: KENDALL Melatonin (Melatonin 3 Mg Tablet) 6 mg PO BEDTIME PRN PRN Reason: Insomnia Last Admin: 02/13/24 20:31 Dose: 6 mg Documented By: CESAR Multivitamins/Vitamin C (Multivitamin Tablet) 1 tab PO DAILY [facility] Stop: 02/16/24 08:59 Last Admin: 02/14/24 08:41 Dose: 1 tab Documented By: KENDALL Ondansetron HCl (Ondansetron Hcl 4 Mg/2 Ml Vial) 4 mg IVPUSH Q8H PRN PRN Reason: Nausea and Vomiting Pharmacy Consult (Consult Rx Etoh Phenob Im/Po) 1 each MISCELLANE ONCE PRN; Protocol PRN Reason: Consult order Phenobarbital (Phenobarbital 15 Mg Tablet) 45 mg PO BID [facility]; Protocol Stop: 02/14/24 21:01 Last Admin: 02/14/24 08:42 Dose: 45 mg Documented By: KENDALL Phenobarbital (Phenobarbital 15 Mg Tablet) 15 mg PO BID [facility]; Protocol Stop: 02/16/24 21:01 Phenobarbital (Phenobarbital 15 Mg Tablet) 15 mg PO DAILY [facility]; Protocol Stop: 02/18/24 09:01 Sodium Chloride (0.9 % Sodium Chloride Flush 3 Ml Syringe) 3 ml IVFLUSH QSHIFT [facility] Last Admin: 02/14/24 07:12 Dose: Not Given Documented By: KENDALL Non-Admin Reason: IV Running Labs 02/13/24 05:14 02/13/24 05:14 Assessment and Plan (1) Alcohol withdrawal seizure: Status: Acute Plan 48 yo M with a history of alcohol abuse who presented to the ED with seizures 1. Alcohol withdrawal with seizures Last drink , 02/11 continue phenobarb 2. 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 hypoMg repleted IV and improved monitor 4. thrombcytopenia/leukopenia likey secondary to alcohol stable 5. Cirrhosis with portal hypertension and varices noted on imaging GI consulted -- outpatient f/u; recs to check liver u/s while in patient -- ordered Full Code DVT pptx, mechanical due to thrombocytopenia requires contiued hosptialization for treatment of his alcohol withdrawal -- not improved enough for discharge home. Quality Stroke Does the patient have a stroke diagnosis?: No VTE Prior VTE?: No VTE Risk Level:: Medical - moderate - high VTE Device Contraindication: Treatment Not Indicated VTE Drug Contraindication: N/A - Med Ordered
--- NOTE | 2024-02-14 10:51 | MHC.CM.PN ---
Addendum entered by Lani Lomeli RN 02/14/24 10:52: +THRIVE. Declines resource guide. Original Note: Patient's mailing address on file is his parent's address. However, he is currently couch surfing and staying with various friends. Functionally independent. Denies use of services or DME. PCP Gee Steele MD No HCP. CM provided education and offered assistance. Patient declined. DP: Patient's goal is to return to friend's house, mother to transport. He is also considering services for ETOH cessation. Recovery team consult pending. CM will continue to follow.
--- NOTE | 2024-02-14 13:45 | PM.GICN ---
History of Present Illness Data of Consult Service Date: 02/14/24 Requesting physician: Casey Dwyer Primary Care Provider: Unknown Physician HPI Reason for consult: Cirrhosis This is a 48-year-old gentleman with past medical history of longstanding alcohol use disorder, who presented to the hospital for withdrawal related seizure. History obtained from the patient, who states that was in rehab almost 10 months ago and maintained sobriety for 7 months. Fell off the band wagon recently. Reports drinking 4-6 cans of 25oz beers per day. On the day of admission was noted to be altered and not able to tolerate anything PO by his mother. Had a prolonged seizure enroute to the hospital. On arrival, he was noted to be tachycardic and hypertensive. Labs were significant for leukopenia and thrombocytopenia Chem 7 with elevated LFTs with AST greater than ALT bilirubin of 1.5. Talks positive for alcohol level 44. CT abdomen and pelvis on admission shows enlarged liver with fatty changes in list splenomegaly up to 14 cm. It also shows varices throughout the abdomen, no ascites. Currently, able to recall most of the events leading up to the hospital admission. Initial CIWA was 13 but consistently has had CIWA < 6 in the past 24h. Review of Systems Review of Systems: Yes all other systems are reviewed and are negative [facility] Social History Social History Household Members: None Housing: Homeless Do you presently have visiting nurse or other home services: No Alcohol intake: current Alcohol intake frequency: 3 or more drinks per day Alcohol type: beer Comment: CIWA; seizure precautions. Patient Tobacco Use Status: Never used Tobacco Substance Use Type: Crack/Cocaine and Painkillers service: No Meds Allergies Allergy/AdvReac Type Severity Reaction Status Date / Time No Known Allergies Allergy Unverified 02/12/24 14:51 [No Known Allergies*] Active Medications: Current Medications Acetaminophen (Acetaminophen 325 Mg Tablet) 650 mg PO Q6H PRN PRN Reason: Pain, Mild (Pain Scale 1-3) Last Admin: 02/13/24 07:24 Dose: 650 mg Famotidine (Famotidine 20 Mg Tablet) 20 mg PO BID [facility] Last Admin: 02/14/24 08:41 Dose: 20 mg Folic Acid (Folic Acid 1 Mg Tablet) 1 mg PO DAILY [facility] Stop: 02/16/24 08:59 Last Admin: 02/14/24 08:41 Dose: 1 mg Thiamine HCl 100 mg/ Sodium (Chloride) 101 mls @ 202 mls/hr IV DAILY [facility] Last Infusion: 02/14/24 09:16 Dose: Infused Melatonin (Melatonin 3 Mg Tablet) 6 mg PO BEDTIME PRN PRN Reason: Insomnia Last Admin: 02/13/24 20:31 Dose: 6 mg Multivitamins/Vitamin C (Multivitamin Tablet) 1 tab PO DAILY [facility] Stop: 02/16/24 08:59 Last Admin: 02/14/24 08:41 Dose: 1 tab Ondansetron HCl (Ondansetron Hcl 4 Mg/2 Ml Vial) 4 mg IVPUSH Q8H PRN PRN Reason: Nausea and Vomiting Pharmacy Consult (Consult Rx Etoh Phenob Im/Po) 1 each MISCELLANE ONCE PRN; Protocol PRN Reason: Consult order Phenobarbital (Phenobarbital 15 Mg Tablet) 45 mg PO BID [facility]; Protocol Stop: 02/14/24 21:01 Last Admin: 02/14/24 08:42 Dose: 45 mg Phenobarbital (Phenobarbital 15 Mg Tablet) 15 mg PO BID [facility]; Protocol Stop: 02/16/24 21:01 Phenobarbital (Phenobarbital 15 Mg Tablet) 15 mg PO DAILY [facility]; Protocol Stop: 02/18/24 09:01 Sodium Chloride (0.9 % Sodium Chloride Flush 3 Ml Syringe) 3 ml IVFLUSH QSHIFT [facility] Last Admin: 02/14/24 07:12 Dose: Not Given Home Medications ?Medication ?Instructions ?Recorded ?Confirmed ?Last Taken ?Type No Known Home Meds 02/12/24 02/12/24 Unknown History Physical Exam Vital Signs: Vital Signs: Last Vital Signs Temp 98.4 F 02/14/24 07:18 Pulse 72 02/14/24 07:18 Resp 18 02/14/24 07:18 BP 128/82 02/14/24 07:18 Pulse Ox 96 02/14/24 07:18 O2 Del Method Room Air 02/14/24 07:18 BMI result Body Mass Index 22.1 Disheveled, appears older than stated age Nonicteric Abd soft, distended but nontender, no shifting dullness A/Ox3 no asterixis Results Labs 02/13/24 05:14 02/13/24 05:[address] scan - abdomen: Radiologist's impression: 1. No CT evidence of solid organ injury. 2. Enlarged diffusely hypodense liver suggesting hepatic steatosis. 3. Splenomegaly 14 cm. 4. There is prominence of the portal vein, varices around the umbilicus and gastroesophageal junction, this is suspicious for portal hypertension portosystemic anastomosis. No ascites. 5. Mildly prominent retroperitoneal para-aortic lymph nodes uncertain etiology, no bulky adenopathy. 6. Heavy coronary calcifications. 7. There are tiny lung nodules largest 7 mm pleural-based right upper lobe. According to the UPDATED 2017 Fleischner Society recommendations, the advised follow-up imaging for solid nodules <6 mm in the middle/lower lobes is no routine follow up. Assessment and Plan (1) Alcohol use disorder: Status: Acute (2) Portal hypertension: Status: Acute (3) Varices of other sites: Status: Acute Plan Likely has acute portal hypertension in the setting of ongoing alcohol use disorder. Accurate assessment of underlying liver function can be done if patient is able to maintain sobriety for at least 3 months. Given the appearance on imaging as well as severe thrombocytopenia, can consider inpatient endoscopy for variceal screening and banding if needed to mitigate the risk of bleeding. No evidence of acute GIB at this time. Plan: - Patient is tentatively on schedule for tomorrow for now. Pls keep him NPO after MN. - INR ordered. If INR >1.5 pls give IV Vit K 10mg once. - Check CBC tmrw AM. If platelets <20k, pls transfuse. - Consider RUQ US. Thank you for allowing me to participate in his care. Please do not hesitate to reach out for any questions or concerns Procedures Date of Service Date of Service: 02/14/24
[2024-02-14 15:19] VITALS: BP 127/78; PULSE 76; RESP 18; TEMP 36.2; O2SAT 94
[2024-02-14 15:28] LABS: INTERNATIONAL NORM RATIO 1.1 (0.9-1.1); Prothrombin Time 13.8 SEC (11.1-13.3)
--- NOTE | 2024-02-14 17:50 | PC.NURSE ---
Patient's family members called unit for update on patient's status. Patient verbalized to this commercial loan underwriter not to release any information at this time.
[2024-02-14 19:01] VITALS: BP 126/78; PULSE 81; RESP 18; TEMP 36.4; O2SAT 95
[2024-02-14] MEDS: 0.9 % Sodium Chloride Flush 3 ML SYRINGE IVFLUSH (20:04)
[2024-02-15] VITALS (7 sets, daily range): BP systolic 119–142; BP diastolic 78–92; PULSE 78–94; RESP 16–18; TEMP 36.1–36.6; O2SAT 95–98; BMI 22.1
[2024-02-15] MEDS: 0.9 % Sodium Chloride Flush 3 ML SYRINGE IVFLUSH ×3 (07:33→20:30)
[2024-02-15] MEDS: PHENobarbitaL 15 MG TABLET PO ×2 (09:24→20:30)
[2024-02-15] MEDS: Thiamine HCL 100 MG in 0.9 % Sodium Chloride 100 ML 202 MG IV (09:34)
--- NOTE | 2024-02-15 13:00 | HO.PM.IMPN ---
Subjective Subjective Date of Service: 02/15/24 Interval History: seen and examined reports no complaints Physical Exam Vital Signs: Vital Signs: Last Vital Signs Temp 97.1 F 02/15/24 07:34 Pulse 80 02/15/24 07:34 Resp 18 02/15/24 07:34 BP 138/86 02/15/24 07:34 Pulse Ox 97 02/15/24 07:34 O2 Del Method Room Air 02/15/24 07:34 BMI result Body Mass Index 22.1 Appearing in no acute distress lung sounds are clear to auscultation heart regular rate rhythm, clear S1, S2 positive bowel sounds, abdomen is soft, nontender neuro patient is alert x3, no focal deficits Objective Data Active Medications Acetaminophen (Acetaminophen 325 Mg Tablet) 650 mg PO Q6H PRN PRN Reason: Pain, Mild (Pain Scale 1-3) Last Admin: 02/13/24 07:24 Dose: 650 mg Documented By: ISRAEL Famotidine (Famotidine 20 Mg Tablet) 20 mg PO BID [facility] Last Admin: 02/15/24 09:26 Dose: Not Given Documented By: RAHEEL Non-Admin Reason: NPO Folic Acid (Folic Acid 1 Mg Tablet) 1 mg PO DAILY [facility] Stop: 02/16/24 08:59 Last Admin: 02/15/24 09:26 Dose: Not Given Documented By: RAHEEL Non-Admin Reason: NPO Thiamine HCl 100 mg/ Sodium (Chloride) 101 mls @ 202 mls/hr IV DAILY [facility] Last Infusion: 02/15/24 10:16 Dose: Infused Documented By: RAHEEL Melatonin (Melatonin 3 Mg Tablet) 6 mg PO BEDTIME PRN PRN Reason: Insomnia Last Admin: 02/13/24 20:31 Dose: 6 mg Documented By: CESAR Multivitamins/Vitamin C (Multivitamin Tablet) 1 tab PO DAILY [facility] Stop: 02/16/24 08:59 Last Admin: 02/15/24 09:26 Dose: Not Given Documented By: RAHEEL Non-Admin Reason: NPO Ondansetron HCl (Ondansetron Hcl 4 Mg/2 Ml Vial) 4 mg IVPUSH Q8H PRN PRN Reason: Nausea and Vomiting Pharmacy Consult (Consult Rx Etoh Phenob Im/Po) 1 each MISCELLANE ONCE PRN; Protocol PRN Reason: Consult order Phenobarbital (Phenobarbital 15 Mg Tablet) 15 mg PO BID [facility]; Protocol Stop: 02/16/24 21:01 Last Admin: 02/15/24 09:24 Dose: 15 mg Documented By: RAHEEL Phenobarbital (Phenobarbital 15 Mg Tablet) 15 mg PO DAILY [facility]; Protocol Stop: 02/18/24 09:01 Sodium Chloride (0.9 % Sodium Chloride Flush 3 Ml Syringe) 3 ml IVFLUSH QSHIFT [facility] Last Admin: 02/15/24 07:33 Dose: 3 ml Documented By: RAHEEL Labs 02/13/24 05:14 02/13/24 05:14 Labs: Laboratory Results - last 24 hr 02/14/24 14:54 PT 13.8 H INR 1.1 Assessment and Plan (1) Alcohol withdrawal seizure: Status: Acute Plan 48 yo M with a history of alcohol abuse who presented to the ED with seizures Cirrhosis with portal hypertension and varices noted on imaging GI consulted>EGD today Alcohol withdrawal with seizures Last drink , 02/11 continue phenobarb no seizures noted hypoMg. Resolved repleted IV monitor thrombcytopenia/leukopenia likey secondary to alcohol stable Full Code Attending Dr. Dwyer DVT pptx, mechanical due to thrombocytopenia requires continued hospitalization for treatment of his alcohol withdrawal -- not improved enough for discharge home. Quality Stroke Does the patient have a stroke diagnosis?: No VTE Prior VTE?: No VTE Risk Level:: Medical - moderate - high VTE Device Contraindication: Treatment Not Indicated VTE Drug Contraindication: N/A - Med Ordered
--- NOTE | 2024-02-15 13:38 | MHC.SHP ---
Pre-Procedural Eval Section A - 24 Hr Update-Section A only Date of Service: 02/15/24 The patient is an INPATIENT: Yes The patient has been examined within 24 hours of the surgical procedure. The History & Physical has been completed within 30 days and I have reviewed it.: Yes Section B - Complete if H&P > 30 days Chief Complaint: PORTAL HYPERTENSION Allergies: Allergies Allergy/AdvReac Type Severity Reaction Status Date / Time No Known Allergies Allergy Verified 02/15/24 13:36 [No Known Allergies*] Plan Diagnosis/Plan: Unchanged I have reviewed the history and physical and performed a pertinent physical examination on my patient. No changes have occurred unless specified. Time Spent With Patient Time: Total time managing care of this patient today ____ minutes.
--- NOTE | 2024-02-15 14:04 | HO.ANESPROP2 ---
HPI - Anesthesia Eval Consult details Narrative: 48 yo M presenting for EGD. Hx of ETOH abuse. PMFSH Active Problems Active Problems: All Active Problems Varices of other sites (Acute) Portal hypertension (Acute) Alcohol use disorder (Acute) Alcohol withdrawal seizure (Acute) Family History Family history of problems with anesthesia: No Surgical History History of Problems with Anesthesia: No Social History Social History Household Members: None Housing: Homeless Do you presently have visiting nurse or other home services: No Alcohol intake: current Alcohol intake frequency: 3 or more drinks per day Alcohol type: beer Comment: CIWA; seizure precautions. Patient Tobacco Use Status: Never used Tobacco Substance Use Type: Crack/Cocaine and Painkillers service: No Meds Allergies Allergy/AdvReac Type Severity Reaction Status Date / Time No Known Allergies Allergy Verified 02/15/24 13:36 [No Known Allergies*] Active Medications: Current Medications Acetaminophen (Acetaminophen 325 Mg Tablet) 650 mg PO Q6H PRN PRN Reason: Pain, Mild (Pain Scale 1-3) Last Admin: 02/13/24 07:24 Dose: 650 mg Famotidine (Famotidine 20 Mg Tablet) 20 mg PO BID [facility] Last Admin: 02/15/24 09:26 Dose: Not Given Folic Acid (Folic Acid 1 Mg Tablet) 1 mg PO DAILY [facility] Stop: 02/16/24 08:59 Last Admin: 02/15/24 09:26 Dose: Not Given Thiamine HCl 100 mg/ Sodium (Chloride) 101 mls @ 202 mls/hr IV DAILY [facility] Last Infusion: 02/15/24 10:16 Dose: Infused Melatonin (Melatonin 3 Mg Tablet) 6 mg PO BEDTIME PRN PRN Reason: Insomnia Last Admin: 02/13/24 20:31 Dose: 6 mg Multivitamins/Vitamin C (Multivitamin Tablet) 1 tab PO DAILY [facility] Stop: 02/16/24 08:59 Last Admin: 02/15/24 09:26 Dose: Not Given Ondansetron HCl (Ondansetron Hcl 4 Mg/2 Ml Vial) 4 mg IVPUSH Q8H PRN PRN Reason: Nausea and Vomiting Pharmacy Consult (Consult Rx Etoh Phenob Im/Po) 1 each MISCELLANE ONCE PRN; Protocol PRN Reason: Consult order Phenobarbital (Phenobarbital 15 Mg Tablet) 15 mg PO BID [facility]; Protocol Stop: 02/16/24 21:01 Last Admin: 02/15/24 09:24 Dose: 15 mg Phenobarbital (Phenobarbital 15 Mg Tablet) 15 mg PO DAILY [facility]; Protocol Stop: 02/18/24 09:01 Sodium Chloride (0.9 % Sodium Chloride Flush 3 Ml Syringe) 3 ml IVFLUSH QSHIFT [facility] Last Admin: 02/15/24 07:33 Dose: 3 ml Home Medications ?Medication ?Instructions ?Recorded ?Confirmed ?Last Taken ?Type No Known Home Meds 02/12/24 02/12/24 Unknown History Exam Exam Date and Time: February 15, 2024 1345 Height,Weight and Vital Signs: Height 5 ft 10 in Weight 69.8 kg Last Vital Signs Temp 97.2 F 02/15/24 13:31 Pulse 78 02/15/24 13:31 Resp 18 02/15/24 13:31 BP 125/89 02/15/24 13:31 Pulse Ox 95 02/15/24 13:31 O2 Del Method Room Air 02/15/24 13:31 Pertinent Lab Results Pertinent Lab Results: Laboratory Tests 02/12/24 02/12/24 02/13/24 15:04 16:42 05:14 WBC 3.4 L 4.1 L RBC 4.78 4.72 Hgb 14.1 14.2 Hct 40.1 L 39.8 L MCV 83.9 84.3 MCH 29.5 30.1 MCHC 35.2 35.7 RDW 13.7 13.5 Plt Count 25 L 23 L MPV Not Reportable 11.8 Immature Gran % (Auto) 0.6 H 0.2 Neut % (Auto) 75.8 H 71.4 Lymph % (Auto) 16.0 L 16.9 L [place] % (Auto) 6.7 10.1 Eos % (Auto) 0.3 1.2 Baso % (Auto) 0.6 0.2 Lymph # (Auto) 0.6 L 0.7 L [place] # (Auto) 0.2 0.4 Eos # (Auto) 0.0 0.1 Baso # (Auto) 0.0 0.0 Abs Immat Gran (auto) 0.02 0.01 Absolute Neuts (auto) 2.6 3.0 Absolute Nucleated RBC 0.000 0.000 Nucleated RBC % (auto) 0.0 0.0 PT INR Sodium 138 135 Potassium 3.3 3.7 Chloride 99 99 Carbon Dioxide 25 22 Anion Gap 17 18 BUN 6 L 6 L Creatinine 0.68 0.68 Estim Creat Clear Calc 134.1 134.1 Estimated GFR > 60 > 60 Random Glucose 96 89 Calcium 9.3 9.2 Magnesium 1.1 L* 1.6 Total Bilirubin 1.5 H AST 112 H ALT 63 H Alkaline Phosphatase 91 Troponin I High Sens < 2.7 Total Protein 8.2 H Albumin 4.0 Salicylates < 5.0 L Urine Opiates Screen Not Detected Ur Buprenorphine Scrn Not Detected Ur Oxycodone Screen Not Detected Urine Methadone Screen Not Detected Urine Fentanyl Screen Not Detected Acetaminophen < 3 Ur Barbiturates Screen POSITIVE H Ur Phencyclidine Scrn Not Detected Ur Amphetamines Screen Not Detected U Benzodiazepines Scrn Not Detected Urine Cocaine Screen Not Detected U Marijuana (THC) Screen Not Detected Ethyl Alcohol 44 02/14/24 14:54 WBC RBC Hgb Hct MCV MCH MCHC RDW Plt Count MPV Immature Gran % (Auto) Neut % (Auto) Lymph % (Auto) [place] % (Auto) Eos % (Auto) Baso % (Auto) Lymph # (Auto) [place] # (Auto) Eos # (Auto) Baso # (Auto) Abs Immat Gran (auto) Absolute Neuts (auto) Absolute Nucleated RBC Nucleated RBC % (auto) PT 13.8 H INR 1.1 Sodium Potassium Chloride Carbon Dioxide Anion Gap BUN Creatinine Estim Creat Clear Calc Estimated GFR Random Glucose Calcium Magnesium Total Bilirubin AST ALT Alkaline Phosphatase Troponin I High Sens Total Protein Albumin Salicylates Urine Opiates Screen Ur Buprenorphine Scrn Ur Oxycodone Screen Urine Methadone Screen Urine Fentanyl Screen Acetaminophen Ur Barbiturates Screen Ur Phencyclidine Scrn Ur Amphetamines Screen U Benzodiazepines Scrn Urine Cocaine Screen U Marijuana (THC) Screen Ethyl Alcohol Airway Mallampati Class: II TM Dist: >3cm Neck ROM: Full Denture: Upper and Lower Heart: S1S2 Lungs: CTAB Assessment and Plan Assessment Anesthesia Assessment: Anesthesia Plan Discussed and Chart Reviewed Final Anesthetic Review Family History of Problems with Anesthesia: No History of Problems with Anesthesia: No NPO: Yes ASA Class: III Final Preanesthetic Review: No Changes in Pt Med Stat, Meds/Allgs Chart Reviewed, Consent Obtained/Reviewed and Anes Risks/Benef Reviewed Patient Risk: Intermediate Procedure Risk: Low Anesthetic Plan Anesthetic Plan: MAC: and Agree w/ Assess. and Plan Disposition: Standard PACU
--- NOTE | 2024-02-15 15:11 | P.OP_ITS ---
Operative Note Operative Note Date of Service: 02/15/24 Narrative: Procedure: Esophagogastroduodenoscopy Endoscopist: Mirella Soriano MD Indication: Portal HTN Anesthesia Provider: Dr Tabby Renae Anesthesia Type: MAC ?? EGD Procedure:?? The procedure, indications, preparation and potential complications were reviewed with the patient, who indicated understanding and gave written informed consent to proceed. A physical exam was performed. The endoscope was introduced through the mouth, and advanced to the second part of duodenum. The mucosa was carefully examined on slow withdrawal of the endoscope. The patient tolerated the procedure well. There were no immediate complications.? ? EGD Findings:? * Esophagus:? Normal mucosa noted in the entire esophagus. The Z line was at 40cm. No esophageal varices were noted. * Stomach:? Diffuse congestion and erythema in mosaic pattern consistent with portal hypertensive gastropathy was noted in the whole stomach. Retroflexion was performed in the cardia. There was erythema and one clean based linear ulcer in the antrum. Cold forceps biopsies were taken from the edge for hi stology. * Duodenum:? Normal mucosa was noted in the whole of the examined duodenum. ? EGD Impressions:? * Normal esophagus * Portal hypertensive gastropathy * Gastritis (biopsy) * Antral ulcer (biopsy) * Normal duodenum ?? Recommendations:?? * Follow biopsy results. Our office will call or send a letter with results within 7-10 days. * Start omeprazole 20mg BID to be continued for 8 weeks. * Strict etOH cessation counseling. * Pt was also encouraged to follow up with GI as outpatient Above has been reviewed with the patient.
[2024-02-15] MEDS: Famotidine 20 MG TABLET PO (20:29)
[2024-02-16] VITALS: BP 132/83; PULSE 81; RESP 16; TEMP 36.1; O2SAT 96
[2024-02-16 04:00] VITALS: BP 131/78; PULSE 76; RESP 16; TEMP 36; O2SAT 98
[2024-02-16 07:27] VITALS: BP 121/71; PULSE 79; RESP 14; TEMP 36.1; O2SAT 96
--- NOTE | 2024-02-16 08:26 | HO.POSTANES ---
Post Anesthesia Evaluation Post Anesthesia Evaluation Date of Service: 02/16/24 Vital Signs: Vital Signs Temp Pulse Resp BP Pulse Ox O2 Del Method 02/16/24 07:27 97.0 F 79 14 121/71 96 Room Air 02/16/24 04:00 96.8 F 76 16 131/78 98 Room Air 02/16/24 00:00 97.0 F 81 16 132/83 96 Room Air Anesthesia: Monitored Mental Status: Awake Pain Control: Satisfactory Nausea/Vomiting: None Hydration: Adequate Anesthesia-Related Issues: No Anes. Related Issues
[2024-02-16] MEDS: Thiamine HCL 100 MG in 0.9 % Sodium Chloride 100 ML IV (08:30)
[2024-02-16] MEDS: 0.9 % Sodium Chloride Flush 3 ML SYRINGE IVFLUSH (08:31)
[2024-02-16] MEDS: PHENobarbitaL 15 MG TABLET PO (08:35)
[2024-02-16] MEDS: Famotidine 20 MG TABLET PO (08:35)
[2024-02-16 09:16] LABS: Anion Gap 12 (12-20); Blood Urea Nitrogen 10 mg/dL (9-16); Calcium 9.3 mg/dL (8.4-10.2); Carbon Dioxide 23 mmol/L (22-29); Chloride 104 mmol/L (96-108); Creatinine Clr Calc Pharmacy 138.4; Estimated Glomerular Filt Rate > 60; Glucose Random 96 mg/dL (60-115); Magnesium 1.5 mg/dL (1.6-2.6); Potassium 3.8 mmol/L (3.3-5.1); Sodium 135 mmol/L (135-145)
--- NOTE | 2024-02-16 09:34 | PC.NURSE ---
Mg level 1.5 PHYLLIS Shirley notified
[2024-02-16] MEDS: Magnesium Sulfate/H2O 2 GM/50 ML PIGGYBACK IV (09:50)
--- NOTE | 2024-02-16 11:08 | MHC.CM.PN ---
Patient medically cleared for dc home self care. Patient's mother will pick him up. He is unsure if he will stay with mom or go to a chcf. He was provided a chcf list and states he will call on his own.
--- NOTE | 2024-02-16 11:16 | P.DS_ITS ---
DS: Providers Provider Date of Service: 02/16/24 Date of admission: 02/12/24 19:16 Primary care physician: Gee Steele MD Consults: 02/12/24 19:15 Addiction Medicine Routine Consulting Provider: Addiction Covering Reason for consultation: alcohol use disorder 02/13/24 16:14 Consult to Gastroenterology Routine Consulting Provider: Mirella Soriano Reason for consultation: cirrhosis, evidence of portal htn on imaging DS: Diagnosis Discharge Diagnosis (1) Alcohol withdrawal seizure: Status: Acute DS: Summary Hospital Course Hospital Course: History and physical as per admitting provider. Pt is a 48-year-old male with a PMH significant for alcohol use disorder with hx of alcohol withdrawal seizures?who presents to the ED after witnessed seizure. Patient reports recently being at a sober house for 8 months though left and started drinking again, up to 8+ big boy beers daily. Also endorses Percocet and cocaine use. Patient not the most reliable of historians, does not appear to remember much from the past week. Was brought in by mother who found patient at home feeling unwell with shaking, nausea, and vomiting. Patient then had a 5 minute long seizure in the car on the ride to the hospital. Patient initially arrived to the ED postictal, nonverbal and not following commands. Mother reports last withdrawal seizure 2-3 years ago. She was aware patient had been drinking, though not how much. Patient complains of auditory and visual hallucinations, seeing and hearing people who are not there or seeing bugs crawling on the ceiling. Some increased anxiety and nausea, but no vomiting. Also complains of intermittent left sided chest pain with palpitations. Patient denies any neck or back pain. Has no recollection of trauma or injury to chest or back, nor any known recent falls. However, patient reports being ?blackout drunk for most of the past week. In the ED pt was tachycardic up to 103, tachypneic up to 22, and hypertensive as high as 182/92. Labs were significant for leukopenia of 3.4, magnesium 1.1, bilirubin 1.5, AST 112, and ALT 63. CT?of head found no evidence of intracranial space-occupying mass, bleed, or infarct. CT of cervical spine found subtle radiolucent line through left pedicle of C5 concerning for possible nondisplaced fracture, narrowing of intervertebral disc spaces, small developed osteophytes from edges of endplates encroaching on neural foramen bilaterally at multiple levels, and prevertebral soft tissue swelling anterior to C7. CT of chest and abdomen/pelvis found no evidence of solid organ injury, but showed likely hepatic steatosis, splenomegaly 14 cm, likely portal hypertension portosystemic anastomose, heavy coronary calcifications, and small lung nodules. EKG demonstrated normal sinus rhythm without evidence of significant ST elevations or depressions. ED clinicians called [facility] neurosurgery who reviewed films in indicated there was no need for surgical intervention at this time. Patient was placed in a cervical collar and will need outpatient follow- up imaging and consultation post discharge. Upon further examination, [facility]surgery was not convinced imaging showed acute fracture. Suggested plain x-rays of cervical spine with flexion. Pt was treated with IVF, Ativan, Mag sulfate, and was started on phenobarb protocol. Pt will be admitted to the hospital for acute alcohol withdrawal with withdrawal seizures. 48-year-old man treated for cirrhosis with portal hypertension. Status post EGD on 02/15/2024 with findings a normal esophagus, portal hypertensive gastropathy, gastritis, antral ulcer and normal duodenum. Biopsies were sent to pathology. Also treated for alcohol withdrawal seizure last drink was on 02/12/2024. Treated with phenobarbital, thiamine, folic acid and multivitamin. No seizures during hospitalization. Patient encouraged to stop drinking alcohol and seek outpatient help for this. He was given IV and oral magnesium for hypomagnesemia and was noted to have chronic thrombocytopenia likely secondary to alcohol abuse. Plan is to discharge patient. He is to start taking omeprazole 20 mg twice daily for 8 weeks and follow up with Gastroenterology in the office. He is agreeable to this. Time Attestation Discharge Coordination Time (in mins): 35 Quality: Safe Use of Opioids Does Pt have an Active Cancer Diagnosis on the Problem List?: No Quality: Stroke Does the patient have a stroke diagnosis?: No Physical Exam Vital Signs: Vital Signs: Last Vital Signs Temp 97.0 F 02/16/24 07:27 Pulse 79 02/16/24 07:27 Resp 14 02/16/24 07:27 BP 121/71 02/16/24 07:27 Pulse Ox 96 02/16/24 07:27 O2 Del Method Room Air 02/16/24 07:27 BMI result Body Mass Index 22.1 Appearing in no acute distress head is normocephalic atraumatic eyes pupils are PERRLA sclera is anicteric mouth throat mucous membranes are intact and moist neck is supple no lymphadenopathy, no JVD noted lung sounds are clear to auscultation heart regular rate rhythm, clear S1, S2 positive bowel sounds, abdomen is soft, nontender neuro patient is alert x3, no focal deficits DS: Data Data Completed and Pending Pending studies at discharge: Pending at discharge 02/15/24 14:45 Surgical [PTH] Routine Labs on day of discharge: Laboratory Results - last 24 hr 02/16/24 08:28 Hold Purple Top SEE NOTE Sodium 135 Potassium 3.8 Chloride 104 Carbon Dioxide 23 Anion Gap 12 BUN 10 Creatinine 0.63 Estim Creat Clear Calc 138.4 Estimated GFR > 60 Random Glucose 96 Calcium 9.3 Magnesium 1.5 L Discharge Plan Discharge Anticipated Discharge Date/Time: 02/16/24 10:49 Patient Disposition: Home, Self-Care Discharge Diagnosis: Cirrhosis Portal hypertension Alcohol withdrawal with seizure Hypomagnesemia Referrals: Gee Steele MD [Primary Care Provider] - 1 Week Discharge Medications: New omeprazole 20 mg tablet,delayed release (DR/EC) 20 mg PO BID Qty: 60 0RF magnesium 250 mg tablet 250 mg PO DAILY Qty: 10 0RF Discharge Orders: Discharge Order (Routine); Ordered 02/16/24 Ordered By: Fern Mcgee Diet: Advance to usual diet Activity on Discharge: As tolerated Stand Alone Forms: Patient Portal Discharge page Print Language: Spanish Care Plan Goals: Stopped drinking alcohol, seek outpatient resources for assistance with this You have been started on new medication called omeprazole, take twice daily You should follow-up with a tearoom hostess in 4-8 weeks Health Concerns: Cirrhosis Portal hypertension Alcohol withdrawal with seizure Hypomagnesemia Plan of Treatment: Follow-up with primary care provider as needed Take all medications as prescribed Assessment: See discharge summary
[2024-02-16 11:29] VITALS: BP 131/71; PULSE 12; RESP 88; TEMP 36.3; O2SAT 96
--- NOTE | 2024-02-16 15:44 | MHC.RECOVRN ---
Briefly met with pt in 367 prior to discharge. Pt had presented to the ED due to seizure and hx of alcohol use. Upon evaluation, pt admitted for treatment of alcohol withdrawal seizure. Pt sitting in bed, awake, alert, engages in conversation but guarded. Initially pt reports alcohol use, a lot however, quickly states I can't answer any more questions right now. Pt voices desire to leave as soon as possible and waiting for mother to pick him up. Unable to engage in further conversation regarding alcohol use. Pt accepting of resources, recovery support information and t/w contact information. Encouraged pt to call with any questions or concerns. Discussed with Andie Yusuf APRN.
== END 2024-02-16 14:07 | disposition home or self-care (01) ==
LOC: HO.ED 19:11 → HO.EDOVER 19:20 → HO.S3 02-13 15:34
PROVIDERS: Internal Medicine; Physician Assistant; Admitting Provider Student in an Organized Health Care Education/Training Program; Emergency Provider Emergency Medicine Emergency Medical Services; PCP Internal Medicine; Visit Provider Nurse Practitioner Acute Care
PROC: 0DJ08ZZ Inspection of Upper Intestinal Tract, Via Natural or Artificial Opening Endoscopic (ICD-10-PCS; CPT 43235; principal; 2024-02-15 15:00)
DX: K74.60 Unspecified cirrhosis of liver (principal); K76.6 Portal hypertension; D69.59 Other secondary thrombocytopenia; F10.139 Alcohol abuse with withdrawal, unspecified; R56.9 Unspecified convulsions; K25.9 Gastric ulcer, unspecified as acute or chronic, without hemorrhage or perforation; E83.42 Hypomagnesemia; Y90.2 Blood alcohol level of 40-59 mg/100 ml; K31.89 Other diseases of stomach and duodenum
CPT/HCPCS: 36415; 70450; 71260; 72052; 72125; 72141; 74177; 76705; 80048; 80053; 80143; 80179; 80307; 83735; 84484; 85025; 85610; 88305; 88313; 88342; 93005; 99285; J1650; J2060; J2250; J2560; J2704; J3411; J3475; J7120; Q9967

== ENCOUNTER → 2024-02-12 14:34 | Outpatient (BNV) | payer OTHER, SELFPAY | PROVIDERS: Admitting Provider Student in an Organized Health Care Education/Training Program; Emergency Provider Emergency Medicine Emergency Medical Services; Visit Provider Internal Medicine Cardiovascular Disease | DX: R00.0 Tachycardia, unspecified (principal) | CPT/HCPCS: 93010 ==

== ENCOUNTER → 2024-02-12 19:16 | Outpatient (BNV) | payer OTHER, SELFPAY | PROVIDERS: Admitting Provider Student in an Organized Health Care Education/Training Program; Emergency Provider Emergency Medicine Emergency Medical Services; Visit Provider Student in an Organized Health Care Education/Training Program | DX: F10.939 Alcohol use, unspecified with withdrawal, unspecified (principal); R56.9 Unspecified convulsions; E83.42 Hypomagnesemia; K76.6 Portal hypertension | CPT/HCPCS: 99222; 99232; 99239 ==

== ENCOUNTER → 2024-02-12 19:16 | Outpatient (BNV) | payer OTHER, SELFPAY | PROVIDERS: Admitting Provider Student in an Organized Health Care Education/Training Program; Emergency Provider Emergency Medicine Emergency Medical Services; Visit Provider Internal Medicine | DX: K31.89 Other diseases of stomach and duodenum (principal); K29.70 Gastritis, unspecified, without bleeding; K25.9 Gastric ulcer, unspecified as acute or chronic, without hemorrhage or perforation | CPT/HCPCS: 43239; 99223 ==

== ENCOUNTER 2025-05-12 13:13 | Outpatient (REF) | payer MEDICAID, SELFPAY ==
--- NOTE | 2025-05-12 | EMG_ITS ---
Chief complaint: Right palm numbness. History of infection and rabies on right hand 1987. Reason for referral: Evaluate for Carpal Tunnel Syndrome Referred by: Dr. Prabhakar Procedure done: Right upper extremity NCS/EMG Precautions and/or limitations: None The limb temperature was monitored continuously and remained between 32-36 degrees C during the performance of the NCS. Nerve Conduction Studies Anti Sensory Summary Table ?Stim Site NR Onset (ms) Norm Onset (ms) Peak (ms) Norm Peak (ms) O-P Amp (?V) Norm O-P Amp Site1 Site2 Delta-0 (ms) Dist (cm) Fredy (m/s) Norm Fredy (m/s) Right Median Anti Sensory (2nd Digit) Wrist ? 3.0 3.8 <3.6 3.6 >10 Wrist 2nd Digit 3.0 14.0 47 Right Radial Anti Sensory (Thumb) Forearm ? 0.9 2.7 <3.1 11.1 Forearm Thumb 0.9 0.0 Right Ulnar Anti Sensory (5th Digit) Wrist ? 2.7 3.6 <3.7 15.0 >15.0 Wrist 5th Digit 2.7 14.0 52 Motor Summary Table ?Stim Site NR Onset (ms) Norm Onset (ms) O-P Amp (mV) Norm O-P Amp iAmp (mV) Amp (1st) (%) Site1 Site2 Delta-0 (ms) Dist (cm) Fredy (m/s) Norm Fredy (m/s) Right Median Motor (Abd Poll Brev) Wrist ? 3.4 <3.9 10.7 >4.5 12.9 100.0 Elbow Wrist 4.5 20.0 44 >45 Elbow ? 7.9 10.1 12.8 94.4 Right Ulnar Motor (Abd Dig Minimi) Wrist ? 2.6 <3.0 8.9 >5 10.7 100.0 B Elbow Wrist 3.7 20.0 54 >45 B Elbow ? 6.3 8.7 10.6 97.8 A Elbow B Elbow 1.3 10.0 77 >45 A Elbow ? 7.6 8.4 10.3 94.4 EMG ?Side Muscle Nerve Root Ins Act Fibs Psw Amp Dur Poly Recrt Int Pat Comment Right 1stDorInt Ulnar C8-T1 Nml Nml Nml Nml Nml 0 Nml Complete Right FlexCarRad Median C6-7 Nml Nml Nml Nml Nml 0 Nml Complete Right FlexCarpiUln Ulnar C8,T1 Nml Nml Nml Nml Nml 0 Nml Complete Right Biceps Musculocut C5-6 Nml Nml Nml Nml Nml 0 Nml Complete Right Triceps Radial C6-7-8 Nml Nml Nml Nml Nml 0 Nml Complete Right Deltoid Axillary C5-6 Nml Nml Nml Nml Nml 0 Nml Complete FINDINGS: Right median motor nerve showed prolonged distal latency, normal amplitude and slow conduction velocity. Right median sensory nerve showed prolonged peak latency. All other nerves tested were within normal. Concentric needle EMG was performed in selected muscles of the right upper extremity. Study did not reveal signs of electric abnormalities as shown in the table above. IMPRESSION: 1. This is an abnormal study. 2. There is electrodiagnostic evidence for right moderate-severe median neuropathy at the wrist, consistent with carpal tunnel syndrome. 3. There is no electrodiagnostic evidence for ulnar neuropathy, brachial plexopathy, or cervical radiculopathy. Thank you for your kind referral. Teresa Lopez MD, KIERSTEN Board Certified, [place] [employer] and [employer] (ABPMR) Board Certified, [place] Board of Electrodiagnostic [employer] (ABEM) [place] [id number] [facility]
--- OUTSIDE RECORDS SUMMARY | 2025-05-12 13:26 | XMS_ITS | Clinical Summary ---
Author Organization [address] [facility] Address [address] [place] [address] Phone Care Team Providers Care Executive Housekeeper Name Role Phone Tiny Julian COPPING MACHINE OPERATOR Primary Care Provider [phone]- [phone] Allergies No known active allergies Medications cyanocobalamin (VITAMIN B-12) 1,000 mcg tablet Take 1 Tablet by mouth daily for 180 days. 10/09/2022 Active folic acid (FOLVITE) 1 mg tablet Take 1 Tablet by mouth daily. 10/09/2022 Active FLUoxetine (PROzac) 20 mg capsule 1 capsule (20 mg total) 1 (one) time each day at the same time. Active meloxicam (MOBIC) 15 mg tablet 1 tablet (15 mg total) 1 (one) time each day at the same time. 12/08/2024 Active traZODone (DESYREL) 100 mg tablet 1 tablet (100 mg total). Active Active Problems Problem Noted Date Diagnosed Date Anemia in other chronic diseases classified else where 01/18/2018 Elevated blood pressure reading 01/18/2018 Hepatosplenomegaly 12/24/2015 Elevated LFTs 12/12/2015 Thrombocytopenia ([facility]/HCC V24) 12/12/2015 Alcoholism (CMS/HCC V24, CMS/HCC V28) 10/08/2012 Overview (08/26/2024): Sober 42 days Knee pain, bilateral 10/08/2012 Encounters Date Type Department Care Team Description 03/17/2025 11:15 AM EDT Office Visit Orthopedic Surgery [facility] [address] [facility] [address] [place] [address] Taras Prabhakar MD Numbness and tingling in right hand (Primary Dx); Tendinitis of flexor tendon of right hand from Last 3 Months Immunizations Name Administration Dates Next Due Influenza, Unspecified 06/14/2020 Td Tetanus diptheria (Tdvax) 7yo and older 09/07 Medical History Medical History Date Comments Alcoholism (CMS/HCC V24, CMS/HCC V28) 10/08/2012 DX:Alcoholism (HCC) Right hand pain 10/08/2012 DX:Right hand pa in Insomnia 10/08/2012 DX:Insomnia Knee pain, bilateral 10/08/2012 DX:Knee maame n, bilateral Hepatosplenomegaly DX:Hepatosple nomegaly ETOH abuse DX:ETOH abuse Family History Medical History Relation Name Comments Lung cancer Father smoker, alcohol ism Coronary artery disease Mother s/p pacemaker, smokes Relation Name Status Comments Father Mother Alive Social History Tobacco Use Types Packs/Day Years Used Date Smoking Tobacco: Never Smokeless Tobacco: Never Alcohol Use Standard Drinks/Week Comments Yes 0 (1 standard drink = 0.6 oz pur e alcohol) Sex and Gender Information Value Date Recorded Sex Assigned at Male 02/02/2025 1:45 PM EDT Legal Sex Male 5:03 PM EST Gender Identity Male 02/02/2025 1:45 PM EDT Sexual Orientation Choose not to disclose 2024 1:45 PM EDT Obstetrics History Last Filed Vital Signs Vital Sign Reading Time Taken Comments Blood Pressure 144/82 10/02/2022 3:33 PM EST C provioder to recheck bp Pulse 102 10/02/2022 3:33 PM EST Temperature - - Respiratory Rate - - Oxygen Saturation - - Inhaled Oxygen Concentration - - Weight 80.7 kg (178 lb) 03/17/2025 11:0 8 AM EDT Height 175.3 cm (5' 9.02 ) 03/17/2025 1 1:08 AM EDT Body Mass Index 26.27 03/17/2025 11:08 AM EDT Plan of Treatment Health Maintenance Due Date Last Done Comments Pneumococcal Vaccine: 50+ Years (2 of 2 - PCV) 09/25/2020 09/25/2019 DTaP,Tdap,and Td Vaccines (3 - Td or Tdap) 09/07/2021 09/07/2011, 09/07/2007 Colorectal Cancer Screening: Colonoscopy 08/06/2022 Social Influencers of Health Screening 08/06/2022 Zoster Vaccines (1 of 2) 12/22/2023 Depression Screening 09/07/2024 COVID-19 Vaccine (1 - 2023-2 5 season) 2025 Influenza Vaccine (#1) 2025 , 09/25/2019 Hepatitis A Vaccines (2 of 2 - Risk 2-dose series) 06/09/2025 12/08/2024 Hepatitis B Vaccines (3 of 3 - 19+ 3-dose series) 06/09/2025 01/05/2025, 12/08/2024 Cholesterol Screening (Lipid Panel) 12/01/2029 12/01/2024, 10/06/2022 HIV Screening Completed 12/01/2024 Hepatitis C Screening Completed 12/01/2024 , 12/12/2015 HIB Vaccines Aged Out No longer eligi ble based on patient's age to complete this topic HPV Vaccines Aged Out No longer eligi ble based on patient's age to complete this topic IPV Vaccines Aged Out No longer eligi ble based on patient's age to complete this topic MMR Vaccines Aged Out No longer eligi ble based on patient's age to complete this topic Meningococcal ACWY Vaccine Aged Out N o longer eligible based on patient's age to complete this topic Meningococcal B Vaccine Aged Out No l onger eligible based on patient's age to complete this topic RSV Immunization Patients Under 20 months Aged Out No longer eligible b ased on patient's age to complete this topic Varicella Vaccines Aged Out No longer eligible based on patient's age to complete this topic Procedures Procedure Name Priority Date/Time Associated Diagnosis Comments HEPATITIS C ANTIBODY Routine 12/01/2024 10:50 AM EDT Overweight Alcohol use, unspecified, uncomplicated Encounter for screening for infectious and parasitic diseases, unspecified HIV 1, 2 ANTIBODY, P24 ANTIGEN WITH REFLEX TO DIFFERENTIATION Routine 12/01/2024 10:50 AM EDT Overweight Alcohol use, unspecified, uncomplicated Encounter for screening for infectious and parasitic diseases, unspecified LIPID PANEL WITH REFLEX TO DIRECT LDL Routine 12/01/2024 10:50 AM EDT Overweight Alcohol use, unspecified, uncomplicated Encounter for screening for infectious and parasitic diseases, unspecified from Last 3 Months or Most Recently Relevant to Health Maintenance Results * Hepatitis C antibody (12/01/2024 10:50 AM EDT) Hepatitis C Antibody Negative Negative LAB CHEMISTRY METHOD 12/01/2024 7:29 PM EDT [facility] Blood Venous blood specimen / Unknown 12/01/2024 10:50 AM EDT 12/01/2024 4:48 PM EDT Gist COPPING MACHINE OPERATOR LAB BLOOD ORDERABLES Final Result Performing Organization Address [facility] Co de Phone Number [facility] [address] [place] [address], [place] [phone] * HIV 1,2 antibody, p24 antigen with reflex to differentiation (12/01/2024 10:50 AM EDT) [facility] HIV Combo AB/AG Negative Negative LAB CHEMISTRY METHOD 12/01/2024 7:29 PM EDT [facility] Blood Venous blood specimen / Unknown 12/01/2024 10:50 AM EDT 12/01/2024 4:48 PM EDT Narrative [facility] - 12/01/2024 7:29 PM EDT This assay is a 4th generation assay allowing for earlier detection of HIV infection by detecting the presence of the HIV-1 p24 antigen as well as the traditional antibodies to HIV type 1 (including group O) and type 2. Use of a 4th generation assay is the current CDC recommendation for HIV screening. [facility] COPPING MACHINE OPERATOR LAB BLOOD ORDERABLES Final Result Performing Organization Address [facility] Co de Phone Number [facility] [address] [place] [address], [place] [phone] * (ABNORMAL) Lipid panel with reflex to direct LDL (12/01/2024 10:50 AM EDT) Cholesterol 163 0 - 200 mg/dL LAB CHEMISTRY METHOD 12/01/2024 6:01 PM EDT [facility] Triglycerides 104 0 - 150 mg/dL LAB CHEMISTRY METHOD 12/01/2024 6:01 PM EDT [facility] HDL 34(L) >=40 mg/dL LAB CHEMISTRY METHOD 12/01/2024 6:01 PM EDT [facility] LDL Calculated 108(H) 0 - 100 mg/dL LAB CHEMISTRY METHOD 12/01/2024 6:01 PM EDT [facility] VLDL Cholesterol Irvin 20.8 mg/dL LAB CHEMISTRY METHOD 12/01/2024 6:01 PM EDT [facility] Non HDL Chol. (LDL+VLDL) 129 <145 mg/dL LAB CHEMISTRY METHOD 12/01/2024 6:01 PM EDT [facility] Chol/HDL Ratio 4.8(H) 0.0 - 4.4 LAB CHEMISTRY METHOD 12/01/2024 6:01 PM EDT [facility] Blood Venous blood specimen / Unknown 12/01/2024 10:50 AM EDT 12/01/2024 4:48 PM EDT us Tiny Julian COPPING MACHINE OPERATOR LAB BLOOD ORDERABLES Final Result [facility] [address] [place] [address], from Last 3 Months or Most Recently Relevant to Health Maintenance Insurance MEDICAID - [place] Care Teams Executive Housekeeper Relationship Specialty Start Date End Date Tiny Julian NP [address] [place] [address] PCP - General Family Medicine 01/25/25
--- OUTSIDE RECORDS SUMMARY | 2025-05-12 13:26 | XMS_ITS | Encounter Summary ---
Author Organization [facility] Address [address] [place] [address] Care Team Providers Care Apartment Maintenance Worker Name Role Phone Tiny Julian STOVE CLEANER Primary Care Provider +1- [phone] Encounter Details Date Type Department Care Team (Late st Contact Info) Description 12/01/2024 Lab Requisition [facility] [address] [place] [address] Tiny Julian, EMANI [address] [place] [address] Overweight; Alcohol use, unspecified, uncomplicated; Encounter for screening for infectious and parasitic diseases, unspecified Social History Tobacco Use Types Packs/Day Years [...] not to disclose 2024 1:45 PM EDT documented as of this encounter Plan of Treatment Not on file documented as of this encounter Procedures Procedure Name Priority Date/Time Associated Diagnosis Comments HEPATITIS C ANTIBODY Routine 12/01/2024 10:50 AM EDT Overweight Alcohol use, unspecified, uncomplicated Encounter for screening for infectious and parasitic diseases, unspecified HIV 1, 2 ANTIBODY, P24 ANTIGEN WITH REFLEX TO DIFFERENTIATION Routine 12/01/2024 10:50 AM EDT Overweight Alcohol use, unspecified, uncomplicated Encounter for screening for infectious and parasitic diseases, unspecified TREPONEMA PALLIDUM ANTIBODY WITH REFLEX TO RPR AND PARTICLE AGGLUTINATION Routine 12/01/2024 10:50 AM EDT Overweight Alcohol use, unspecified, uncomplicated Encounter for screening for infectious and parasitic diseases, unspecified THYROID STIMULATING HORMONE WITH REFLEX TO FREE T4 AND FREE T3 Routine 12/01/2024 10:50 AM EDT Overweight Alcohol use, unspecified, uncomplicated Encounter for screening for infectious and parasitic diseases, unspecified SST - GOLD Routine 12/01/2024 10:50 AM EDT Overweight Alcohol use, unspecified, uncomplicated Encounter for screening for infectious and parasitic diseases, unspecified SST - GOLD Routine 12/01/2024 10:50 AM EDT Overweight Alcohol use, unspecified, uncomplicated Encounter for screening for infectious and parasitic diseases, unspecified LIPID PANEL WITH REFLEX TO DIRECT LDL Routine 12/01/2024 10:50 AM EDT Overweight Alcohol use, unspecified, uncomplicated Encounter for screening for infectious and parasitic diseases, unspecified HEPATITIS A ANTIBODY TOTAL WITH REFLEX IGM Routine 12/01/2024 10:50 AM EDT Overweight Alcohol use, unspecified, uncomplicated Encounter for screening for infectious and parasitic diseases, unspecified HEPATITIS B SCREENING PANEL Routine 12/01/2024 10:50 AM EDT Overweight Alcohol use, unspecified, uncomplicated Encounter for screening for infectious and parasitic diseases, unspecified COMPLETE BLOOD COUNT Routine 12/01/2024 10:50 AM EDT Overweight Alcohol use, unspecified, uncomplicated Encounter for screening for infectious and parasitic diseases, unspecified HEMOGLOBIN A1C Routine 12/01/2024 10:50 AM EDT Overweight Alcohol use, unspecified, uncomplicated Encounter for screening for infectious and parasitic diseases, unspecified COMPREHENSIVE METABOLIC PANEL Routine 12/01/2024 10:50 AM EDT Overweight Alcohol use, unspecified, uncomplicated Encounter for screening for infectious and parasitic diseases, unspecified documented in this encounter Results * SST tube (12/01/2024 10:50 AM EDT) Extra Tube Hold for add-ons. 12/01/2024 6:01 PM EDT [facility] Comment:Auto resulted. Blood Venous blood specimen / Unknown 12/01/2024 10:50 AM EDT 12/01/2024 4:48 PM EDT us Eddieliza Casionan STOVE CLEANER LAB BLOOD ORDERABLES Final Result Performing Organization Address City/[facility]/ZIP Co de Phone Number [facility] [address] [place] [address], [place] [phone] * SST tube (12/01/2024 10:50 AM EDT) Extra Tube Hold for add-ons. 12/01/2024 6:01 PM EDT [facility] Comment:Auto resulted. Blood Venous blood specimen / Unknown 12/01/2024 10:50 AM EDT 12/01/2024 4:48 PM EDT Eddieliissa Casionan STOVE CLEANER LAB BLOOD ORDERABLES Final Result [facility] [address] [place] [address], [place] [phone] * Hepatitis A antibody total with reflex IgM (12/01/2024 10:50 AM EDT) Hep A Total Ab Negative Negative LAB CHEMISTRY METHOD 12/01/2024 8:45 PM EDT [facility] Blood Venous blood specimen / Unknown 12/01/2024 10:50 AM EDT 12/01/2024 4:48 PM EDT Narrative [facility] - 12/01/2024 8:45 PM EDT Over the counter supplements containing high doses of biotin may interfere with this assay. If interference is suspected, patients shoud be retested after refraining from biotin supplements for 72 hours. us Eddieliza Casionan STOVE CLEANER LAB BLOOD ORDERABLES Final Result Performing Organization Address City/[facility]/ZIP Co de Phone Number [facility] [address] [place] [address], * Hepatitis B screening panel (12/01/2024 10:50 AM EDT) Hepatitis B Surface Ag Negative Negative LAB CHEMISTRY METHOD 12/01/2024 8:46 PM EDT [facility] Hep B Core Total Ab Negative Negative LAB CHEMISTRY METHOD 12/01/2024 8:46 PM EDT [facility] Hepatitis B Surface Ab Negative Negative LAB CHEMISTRY METHOD 12/01/2024 8:46 PM EDT [facility] Blood Venous blood specimen / Unknown 12/01/2024 10:50 AM EDT 12/01/2024 4:48 PM EDT Eddieliza Jadonionan STOVE CLEANER LAB BLOOD ORDERABLES Final Result Performing Organization Address City/[facility]/ZIP Co de Phone Number [facility] [address] [place] [address], * Hepatitis C antibody (12/01/2024 10:50 AM EDT) Hepatitis C Antibody Negative Negative LAB CHEMISTRY METHOD 12/01/2024 7:29 PM EDT [facility] Blood Venous blood specimen / Unknown 12/01/2024 10:50 AM EDT 12/01/2024 4:48 PM EDT us Eddieliza Casionan STOVE CLEANER LAB BLOOD ORDERABLES Final Result Performing Organization Address City/[facility]/ZIP Co de Phone Number [facility] [address] [place] [address], [place] [phone] * Thyroid stimulating hormone with reflex to free t4 and free t3 (12/01/2024 10:50 AM EDT) Pathologist [facility] TSH 1.12 0.40 - 4.00 mcIU/mL LAB CHEMISTRY METHOD 12/01/2024 6:50 PM EDT [facility] Blood Venous blood specimen / Unknown 12/01/2024 10:50 AM EDT 12/01/2024 4:48 PM EDT Tiny Julian STOVE CLEANER LAB BLOOD ORDERABLES Final Result Performing Organization Address [facility]/ZIP Co de Phone Number [facility] [address] [place] [address], * Treponema pallidum antibody with reflex to RPR and particle agglutination (12/01/2024 10:50 AM EDT) [facility] T. Pallidum Antibodies Negative Negative LAB CHEMISTRY METHOD 12/01/2024 7:00 PM EDT [facility] Blood Venous blood specimen / Unknown 12/01/2024 10:50 AM EDT 12/01/2024 4:48 PM EDT Tiny Julian STOVE CLEANER LAB BLOOD ORDERABLES Final Result Performing Organization Address [facility]/ZIP Co de Phone Number [facility] [address] [place] [address], [place] [phone] * (ABNORMAL) Lipid panel with reflex to direct LDL (12/01/2024 10:50 AM EDT) [facility] Cholesterol 163 0 - 200 mg/dL LAB CHEMISTRY METHOD 12/01/2024 6:01 PM EDT [facility] Triglycerides 104 0 - 150 mg/dL LAB CHEMISTRY METHOD 12/01/2024 6:01 PM EDT [facility] HDL 34(L) >=40 mg/dL LAB CHEMISTRY METHOD 12/01/2024 6:01 PM EDT [facility] LDL Calculated 108(H) 0 - 100 mg/dL LAB CHEMISTRY METHOD 12/01/2024 6:01 PM EDT [facility] VLDL Cholesterol Irvin 20.8 mg/dL LAB CHEMISTRY METHOD 12/01/2024 6:01 PM EDT [facility] Non HDL Chol. (LDL+VLDL) 129 <145 mg/dL LAB CHEMISTRY METHOD 12/01/2024 6:01 PM EDT [facility] Chol/HDL Ratio 4.8(H) 0.0 - 4.4 LAB CHEMISTRY METHOD 12/01/2024 6:01 PM EDT [facility] Blood Venous blood specimen / Unknown 12/01/2024 10:50 AM EDT 12/01/2024 4:48 PM EDT us Tiny Julian STOVE CLEANER LAB BLOOD ORDERABLES Final Result [facility] [address] [place] [address], * HIV 1,2 antibody, p24 antigen with reflex to differentiation (12/01/2024 10:50 AM EDT) HIV Combo AB/AG Negative Negative LAB CHEMISTRY METHOD 12/01/2024 7:29 PM EDT [facility] Blood Venous blood specimen / Unknown 12/01/2024 10:50 AM EDT 12/01/2024 4:48 PM EDT Narrative [facility] - 12/01/2024 7:29 PM EDT This assay is a 4th generation assay allowing for earlier detection of HIV infection by detecting the presence of the HIV-1 p24 antigen as well as the traditional antibodies to HIV type 1 (including group O) and type 2. Use of a 4th generation assay is the current CDC recommendation for HIV screening. [facility] CenterDiaDerma BVissa Diopionan STOVE CLEANER LAB BLOOD ORDERABLES Final Result [facility] [address] [place] [address], [place] [phone] * Hemoglobin A1c (12/01/2024 10:50 AM EDT) Hemoglobin A1C 4.7 <6.5 % LAB CHEMISTRY METHOD 12/01/2024 9:26 PM EDT [facility] Mean Bld Glu Estim. 88 mg/dL LAB CHEMISTRY METHOD 12/01/2024 9:26 PM EDT [facility] Blood Venous blood specimen / Unknown 12/01/2024 10:50 AM EDT 12/01/2024 4:48 PM EDT [facility] LAB BLOOD ORDERABLES Final Result Performing Organization Address City/[facility]/ZIP Co de Phone Number [facility] [address] [place] [address], [place] [phone] * (ABNORMAL) Comprehensive metabolic panel (12/01/2024 10:50 AM EDT) Sodium 138 133 - 145 mmol/L LAB CHEMISTRY METHOD 12/01/2024 6:01 PM EDT [facility] Potassium 4.2 3.5 - 5.5 mmol/L LAB CHEMISTRY METHOD 12/01/2024 6:01 PM EDT [facility] Chloride 107 96 - 110 mmol/L LAB CHEMISTRY METHOD 12/01/2024 6:01 PM EDT [facility] CO2 26 21 - 32 mmol/L LAB CHEMISTRY METHOD 12/01/2024 6:01 PM EDT [facility] Anion Gap 5 3 - 11 LAB CHEMISTRY METHOD 12/01/2024 6:01 PM [facility] Glucose 114(H) 70 - 100 mg/dL LAB CHEMISTRY METHOD 12/01/2024 6:01 PM [facility] BUN 16 5 - 25 mg/dL LAB CHEMISTRY METHOD 12/01/2024 6:01 PM [facility] Creatinine 0.81 0.70 - 1.30 mg/dL LAB CHEMISTRY METHOD 12/01/2024 6:01 PM [facility] eGFR 107 >=60 mL/min/1. 73m2 LAB CHEMISTRY METHOD 12/01/2024 6:01 PM [facility] Comment:Calculation based on the Chronic Kidney Disease Epidemiology Collaboration (CKD-EPI) equation refit without adjustment for race. BUN/Creatinine Ratio 19.8 LAB CHEMISTRY METHOD 12/01/2024 6:01 PM [facility] Calcium 9.4 8.5 - 10.5 mg/dL LAB CHEMISTRY METHOD 12/01/2024 6:01 PM [facility] AST (SGOT) 32 10 - 42 unit/L LAB CHEMISTRY METHOD 12/01/2024 6:01 PM [facility] ALT (SGPT) 45 10 - 60 unit/L LAB CHEMISTRY METHOD 12/01/2024 6:01 PM [facility] Alkaline Phosphatase 54 42 - 121 unit/L LAB CHEMISTRY METHOD 12/01/2024 6:01 PM [facility] Total Protein 7.8 6.0 - 8.0 g/dL LAB CHEMISTRY METHOD 12/01/2024 6:01 PM [facility] Albumin 3.9 3.2 - 5.0 g/dL LAB CHEMISTRY METHOD 12/01/2024 6:01 PM [facility] Total Bilirubin 0.7 0.0 - 1.4 mg/dL LAB CHEMISTRY METHOD 12/01/2024 6:01 PM [facility] Blood Venous blood specimen / Unknown 12/01/2024 10:50 AM EDT 12/01/2024 4:48 PM EDT us Tiny Julian STOVE CLEANER LAB BLOOD ORDERABLES Final Result [facility] [address] [place] [address], * (ABNORMAL) Complete blood count (12/01/2024 10:50 AM EDT) WBC 5.3 4.8 - 10.8 K/mcL LAB HEMETOLOGY METHOD 12/01/2024 8:35 PM EDT [facility] RBC 4.40(L) 4.50 - 5.50 M/mcL LAB HEMETOLOGY METHOD 12/01/2024 8:35 PM EDT [facility] Hemoglobin 13.6 13.5 - 17.5 g/dL LAB HEMETOLOGY METHOD 12/01/2024 8:35 PM EDT [facility] Hematocrit 38.6(L) 42.0 - 54.0 % LAB HEMETOLOGY METHOD 12/01/2024 8:35 PM EDT [facility] MCV 88.3 79.0 - 98.0 FL LAB HEMETOLOGY METHOD 12/01/2024 8:35 PM EDT [facility] MCH 31.1 27.0 - 32.0 pcg LAB HEMETOLOGY METHOD 12/01/2024 8:35 PM EDT [facility] MCHC 35.2 32.0 - 37.0 g/dL LAB HEMETOLOGY METHOD 12/01/2024 8:35 PM EDT [facility] RDW 12.8 11.0 - 15.0 % LAB HEMETOLOGY METHOD 12/01/2024 8:35 PM EDT [facility] Platelets 70(L) 130 - 400 K/mcL 12/01/2024 8:35 PM EDT [facility] Comment:Large platelets seen MPV 10.9 7.0 - 11.0 FL LAB HEMETOLOGY METHOD 12/01/2024 8:35 PM EDT [facility] NRBC 0.0 <1.0 % LAB [facility] METHOD 12/01/2024 8:35 PM EDT [facility] NRBC Absolute 0.00 <0.10 K/mcL LAB HEMETOLOGY METHOD 12/01/2024 8:35 PM EDT [facility] Blood Venous blood specimen / Unknown 12/01/2024 10:50 AM EDT 12/01/2024 4:48 PM EDT Tiny Julian NP LAB BLOOD ORDERABLES Final Result [facility] [address] [place] [address], documented in this encounter Visit Diagnoses Diagnosis Overweight Alcohol use, unspecified, uncomplicated Encounter for screening for infectious and parasitic diseases, unspecified documented in this encounter Care Teams Apartment Maintenance Worker Relationship Specialty Start Date End Date Tiny Julian NP [address] [place] [address] PCP - General Family Medicine 01/25/25 documented as of this encounter
--- OUTSIDE RECORDS SUMMARY | 2025-05-12 13:26 | XMS_ITS | Encounter Summary ---
Author Organization [facility] Address [address] [place] [address] Care Team Providers Care Antique Furniture Restorer Name Role Phone Tiny Julian RN PERINATAL Primary Care Provider [phone] Encounter Details Date Type Department Care Team (Late st Contact Info) Description 11/24/2024 Lab Requisition [facility] - Main Lab [address] [place] [address] Tiny Julian, EMANI [address] [place] [address] Encounter for screening for infectious and parasitic diseases, unspecified; Alcohol use, unspecified, uncomplicated Social History Tobacco Use Types Packs/Day Years [...] Procedure Name Priority Date/Time Associated Diagnosis Comments MICROALBUMIN CREATININE URINE RATIO Routine 11/24/2024 11:36 AM EDT Encounter for screening for infectious and parasitic diseases, unspecified Alcohol use, unspecified, uncomplicated CHLAMYDIA TRACHOMATIS AND NEISSERIA GONORRHOEAE PCR Routine 11/24/2024 11:36 AM EDT Encounter for screening for infectious and parasitic diseases, unspecified Alcohol use, unspecified, uncomplicated documented in this encounter Results * (ABNORMAL) Microalbumin creatinine urine ratio (11/24/2024 11:36 AM EDT) Creatinine, Urine 211.0 mg/dL LAB CHEMISTRY METHOD 11/24/2024 6:05 PM EDT [facility] Microalb, Ur 67.8(H) 0.0 - 29.0 mg/L LAB CHEMISTRY METHOD 11/24/2024 6:05 PM EDT [facility] Microalb/Crea t Ratio 32(H) <30 mg/g creat LAB CHEMISTRY METHOD 11/24/2024 6:05 PM EDT [facility] Urine Urine specimen obtained by clean catch procedure / Unknown 11/24/2024 11:36 AM EDT 11/24/2024 4:55 PM EDT us Eddieliissa Julian RN PERINATAL LAB URINE ORDERABLES Final Result [facility] [address] [place] [address], * Chlamydia trachomatis and Neisseria gonorrhoeae molecular study (11/24/2024 11:36 AM EDT) Neisseria gonorrhoeae PCR Negative Negative LAB MOLECULAR DIAGNOSTICS METHOD 11/25/2024 9:32 AM EDT [facility] Chlamydia trachomatis PCR Negative Negative LAB MOLECULAR DIAGNOSTICS METHOD 11/25/2024 9:32 AM EDT [facility] Urine 11/24/2024 11:3 6 AM EDT 11/24/2024 4:55 PM EDT us Eddieliza Jadonionan RN PERINATAL LAB MICROBIOLOGY - GENERAL ORDERABLES Final Result [facility] [address] [place] [address], documented in this encounter Visit Diagnoses Diagnosis Encounter for screening for infectious and parasitic diseases, unspecified Alcohol use, unspecified, uncomplicated documented in this encounter Care Teams Antique Furniture Restorer Relationship Specialty Start Date End Date Tiny Julian NP [address] [place] [address] PCP - General Family Medicine 01/25/25 documented as of this encounter
--- OUTSIDE RECORDS SUMMARY | 2025-05-12 13:27 | XMS_ITS | Patient Health Record ---
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 [facility] [place], [place] [id number] Nancy Barney Notes/Report: FASTING: UNKNOWN FECAL GLOBIN BY IMMUNOCHEMISTRY SEE NOTE FECAL GLOBIN BY IMMUNOCHEMISTRY Micro Number: [id number] Test Status: Final Specimen Source: Insure () fobt test card Specimen Quality: Adequate Fecal Globin: Detected NOTE: Approved collection includes sample of toilet water adjacent to stool. Other methods of collection such as stool transferred from diaper, bedpan, or commode to toilet water may lead to inaccurate results. QUANTIFERON(R)-TB GOLD PLUS, 1 TUBE Reviewed date:12/06/2024 12:52:57 PM Interpretation:Negative Performing Lab:NL2, [employer] [facility] [address] [facility] Nancy Barney Notes/Report: NON-FASTING QUANTIFERON(R)-TB GOLD PLUS, 1 TUBE NEGATIVE NEGATIVE Negative test result. M. tuberculosis complex infection unlikely. NIL 0.01 MITOGEN-NIL 8.44 TB1-NIL 0.22 TB2-NIL 0.32 The Nil tube value reflects the background interferon gamma immune response of the patient's blood sample. This value has been subtracted from the patient's displayed TB and Mitogen results. Lower than expected results with the Mitogen tube prevent false-negative Quantiferon readings by detecting a patient with a potential immune suppressive condition and/or suboptimal pre-analytical specimen handling. The TB1 Antigen tube is coated with the M. tuberculosis-specific antigens designed to elicit responses from TB antigen primed CD4+ helper T-lymphocytes. The TB2 Antigen tube is coated with the M. tuberculosis-specific antigens designed to elicit responses from TB antigen primed CD4+ helper and CD8+ cytotoxic T-lymphocytes. For additional information, please refer to https://education.YeHive/faq/KNG134 (This link is being provided for informational/ educational purposes only.) HEPATITIS B SCREENING PANEL Reviewed date:12/02/2024 09:59:45 AM Interpretation:no immunity Performing Lab: Notes/Report: Hepatitis B Surface Ag Negative Negative Hep B Core Total Ab Negative Negative Hepatitis B Surface Ab Negative Negative MICROALBUMIN CREATININE URIN E RATIO Reviewed date:11/25/2024 05:07:50 AM Interpretation:Abnormal Performing Lab: Notes/Report: Creatinine, Urine 211.0 Microalb, Ur 67.8 0.0-29.0 mg/L Microalb/Creat Ratio 32 <30 mg/g creat CHLAMYDIA TRACHOMATIS AND NE ISSERIA GONORRHOEAE MOLECULAR STUDY Reviewed date:11/25/2024 09:36:25 AM Interpretation:Negative Performing Lab: Notes/Report: Neisseria gonorrhoeae PCR Negative Negative Chlamydia trachomatis PCR Negative Negative COMPREHENSIVE METABOLIC PANE L Reviewed date:12/02/2024 09:51:50 AM Interpretation:Normal Performing Lab: Notes/Report: Sodium 138 133-145 mmol/L Potassium 4.2 3.5-5.5 mmol/L Chloride 107 96-110 mmol/L CO2 26 21-32 mmol/L Anion Gap 5 3-11 Glucose 114 70-100 mg/dL BUN 16 5-25 mg/dL Creatinine 0.81 0.70-1.30 mg/dL eGFR 107 >=60 mL/min/1.73m2 Calculati on based on the Chronic Kidney Disease Epidemiology Collaboration (CKD-EPI) equation refit without adjustment for race. BUN/Creatinine Ratio 19.8 Calcium 9.4 8.5-10.5 mg/dL AST (SGOT) 32 10-42 unit/L ALT (SGPT) 45 10-60 unit/L Alkaline Phosphatase 54 42-121 unit/L Total Protein 7.8 6.0-8.0 g/dL Albumin 3.9 3.2-5.0 g/dL Total Bilirubin 0.7 0.0-1.4 mg/dL COMPLETE BLOOD COUNT Reviewed date:12/02/2024 09:58:26 AM Interpretation:plt - 70;hct-38.6 Performing Lab: Notes/Report: WBC 5.3 4.8-10.8 K/mcL RBC 4.40 4.50-5.50 M/mcL Hemoglobin 13.6 13.5-17.5 g/dL Hematocrit 38.6 42.0-54.0 % MCV 88.3 79.0-98.0 FL MCH 31.1 27.0-32.0 pcg MCHC 35.2 32.0-37.0 g/dL RDW 12.8 11.0-15.0 % Platelets 70 130-400 K/mcL Large platelet s seen MPV 10.9 7.0-11.0 FL NRBC 0.0 <1.0 % NRBC Absolute 0.00 <0.10 K/mcL LIPID PANEL WITH REFLEX TO D IRECT LDL Reviewed date:12/16/2024 08:16:38 AM Interpretation:3.1%-10 yr CVD risk Performing Lab: Notes/Report: Cholesterol 163 0-200 mg/dL Triglycerides 104 0-150 mg/dL HDL 34 >=40 mg/dL LDL Calculated 108 0-100 mg/dL VLDL Cholesterol Irvin 20.8 Non HDL Chol. (LDL+VLDL) 129 <145 mg/dL Chol/HDL Ratio 4.8 0.0-4.4 THYROID STIMULATING HORMONE WITH REFLEX TO FREE T4 AND FREE T3 Reviewed date:12/02/2024 09:51:26 AM Interpretation:Normal Performing Lab: Notes/Report: TSH 1.12 0.40-4.00 mcIU/mL TREPONEMA PALLIDUM ANTIBODY WITH REFLEX TO RPR AND PARTICLE AGGLUTINATION Reviewed date:12/02/2024 09:51:16 AM Interpretation:Negative Performing Lab: Notes/Report: T. Pallidum Antibodies Negative Negative HIV 1, 2 ANTIBODY, P24 ANTIG EN WITH REFLEX TO DIFFERENTIATION Reviewed date:12/02/2024 09:51:08 AM Interpretation:Negative Performing Lab: Notes/Report: This assay is a 4th generation assay allowing for earlier detection of HIV infection by detecting the presence of the HIV-1 p24 antigen as well as the traditional antibodies to HIV type 1 (including group O) and type 2. Use of a 4th generation assay is the current CDC recommendation for HIV screening. HIV Combo AB/AG Negative Negative HEPATITIS C ANTIBODY Reviewed date:12/02/2024 09:50:58 AM Interpretation:Normal Performing Lab: Notes/Report: Hepatitis C Antibody Negative Negative HEMOGLOBIN A1C Reviewed date:12/02/2024 09:41:21 AM Interpretation:Normal Performing Lab: Notes/Report: Hemoglobin A1C 4.7 <6.5 % Mean Bld Glu Estim. 88 HEPATITIS A ANTIBODY TOTAL W ITH REFLEX IGM Reviewed date:12/02/2024 09:41:28 AM Interpretation:Negative Performing Lab: Notes/Report: Over the counter supplements containing high doses of biotin may interfere with this assay. If interference is suspected, patients shoud be retested after refraining from biotin supplements for 72 hours. Hep A Total Ab Negative Negative XR HAND 3+ VIEWS RIGHT Reviewed date:01/13/2025 09:42:08 AM Interpretation:Normal Performing Lab: Notes/Report: See Note [facility], a member of [employer] HISTORY: The patient is a 49-year-old male with chronic right hand pain, recently worsening, following previous episodes of trauma. FINDINGS: AP, lateral, and oblique views of the right hand are obtained. No prior study is available for comparison. This examination demonstrates no fracture, dislocation, arthritic change, or other bony abnormality. No soft tissue abnormality is seen. IMPRESSION: Normal examination. Code 92816 -------- FINAL REPORT -------- Dictated By: Hu North Dictated Date: 01/11/2025 10:59 ET Assigned Physician: Hu North Reviewed and Electronically Signed By: Hu North Signed Date: 01/11/2025 11:02 ET Workstation ID: [id number] Transcribed By: Self Edit Transcribed Date: 01/11/2025 11:00 ET Reason For Referral Reason evaluate left knee o steoarthritis Diagnosis 1 Unilateral primary o steoarthritis, left knee (M17.12) Referral Organization [facility] Referring Provider First Name Tiny Referring Provider Last Name Iesha Referring Provider Speciality Nurse Prac titioner Referred Provider [facility] Referred Provider Specialty Orthopedic S urgery General Notes Erna Lai 2024 02:04:39 PM >Faxed to [facility] [place] 11/30/2024 02:23:28 PM > pt. scheduled 01/04/25 @1:15 pm, [facility] [place] w/ Kareem Traore PA-C, Farida Vazquez 01/04/2025 02:39:48 PM > pt. attended, notes to scan Referral Priority Routine Referral Appointment Date 01/04/2025 Reason [facility], [address] [place], [place] P: [phone] F: [phone] evaluate for positive FIT Diagnosis 1 Unilateral primary o steoarthritis, left knee (M17.12) Referral Organization [facility] Referring Provider First Name Tiny Referring Provider Last Name Iesha Referring Provider Speciality Nurse Prac titioner Referred Provider [facility], Gastroenterolog y ([facility]) Referred Provider Specialty Gastroentero logy General Notes Farida Vazquez 12/2024 08:54:55 AM > [facility], Erna Lai 12/15/2024 10:45:18 AM >Appt obtained, patient aware Referral Priority Routine Referral Appointment Date 01/18/2025 Reason [facility], [address] [place], [place] P: [phone] F: [phone] evaluate for chronic right hand pain Diagnosis 1 Pain in right hand ( M79.641) Referral Organization [facility] Referring Provider First Name Tiny Referring Provider Last Name Iesha Referring Provider Speciality Nurse Prac titioner Referred Provider [facility] Referred Provider Specialty Orthopedic S urgery General Notes Farida Vazquez 09/2024 11:49:55 AM > [facility]ed to [facility] 01/17/2025 03:28:49 PM > [facility] wont see pt. without original records pt,. can recall where he last went, Farida Vazquez 01/25/2025 09:36:18 AM > Faxed to [facility] [place] 02/02/2025 02:58:57 PM > pt. attended, notes received, put to scan Referral Priority Routine Referral Appointment Date 02/02/2025 Medications Medication SIG (Take, Route, Frequency, Duration) Notes Start Date End Date Status FLUoxetine 20 mg 1 cap(s) orally once a day Active meloxicam 15 mg 1 tab(s) orally once a day for 30 days As needed 12/08/2024 Active traZODone 100 mg one at night orally Active diclofenac topical 1% 2.25 inch applied topically 4 times a day for 28 days As needed 04/11/2025 Active acamprosate 333 mg 2 tab(s) orally 3 ti mes a day Not-Taking Melatonin 10 mg 1 tab(s) orally once a day (at bedtime) pt reports he takes 13mg at bedtime Not-Taking Immunizations Vaccine Route Administration Date Status Comme nts Td Unknown 09/07/2011 Administered Hepatitis A IM Intramuscular 12/08/2024 Administered ndc:5 [id number] hepatitis B IM Intramuscular 12/08/2024 Administered NDC 4 [id number] Hepatitis B (20 or more) IM Intramuscular 01/05/2025 Administered NDC: 22379-038- 01 Social History Tobacco Use: Social History Observation Description Date Details (start date - stop date) Never Smoker NA - NA Tobacco Use Assessment MU Question Answer Notes What is your current smoking status? nonsmoker Problems Problem Type SNOMED Code ICD Code Onset Dates Problem Status W/U Status Risk Notes Problem Thrombocytopenia (245372118) Thrombocytopenia , unspecified (D69.6) Active confirmed Problem Overweight (687162084) Overweight (E66.3) Active confirmed Problem Moderate recurrent major depression (94095119) Major depressive disorder, recurrent, moderate (F33.1) Active confirmed Problem Osteoarthritis of knee (354061484) Unilateral primary osteoarthritis, left knee (M17.12) Active confirmed Problem Instability of joint of right hand (finding) (76416942964229489) Other instability, right hand (M25.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) Active confirmed Problem Mental health screening (procedure) (262649820) Encounter for screening examination for other mental health and behavioral disorders (Z13.39) Active confirmed Problem Body mass index 25-29 - overweight (112823203) Body mass index [BMI] 27.0-27.9, adult (Z68.27) Active confirmed Problem Sheltered homelessness (620282804366257) Sheltered homelessness (Z59.01) Active confirmed Problem Current drinker of alcohol (finding) (704562) Alcohol use, unspecified, uncomplicated (F10.90) Active confirmed Vital Signs Temperature 97.3 degrees Fahrenheit 04/11/2025 Blood pressure diastolic 73 04/11/2025 Oximetry 98 04/11/2025 Height 70 in 04/11/2025 Blood pressure systolic 114 04/11/2025 Weight 177.4 lbs 04/11/2025 BMI 25.45 kg/m2 04/11/2025 Encounters Encounter Location Date Provider Diagnosis [address] [address] 11/02/2024 Nursing [facility] Encounter for screening for COVID-19 Z11.52 ; Sheltered homelessness Z59.01 and Encounter for screening examination for other mental health and behavioral disorders Z13.[address] [address] 11/24/2024 Eddieliza Casionan Encounter for screening for respiratory tuberculosis Z11.1 ; Encounter for general adult medical examination with abnormal findings Z00.01 ; Encounter for screening for infectious and parasitic diseases, unspecified Z11.9 ; Encounter for screening for malignant neoplasm of colon Z12.11 ; Alcohol use, unspecified, uncomplicated F10.90 ; Sheltered homelessness Z59.01 ; Body mass index [BMI] 27.0-27.9, adult Z68.27 ; Overweight E66.3 ; Major depressive disorder, recurrent, moderate F33.1 ; Unilateral primary osteoarthritis, left knee M17.12 and Other instability, right hand M25.[address] [address] 12/01/2024 Nursing [facility] Encounter for screening, unspecified Z13.[address] [address] 12/08/2024 Eddieliza Casionan Unilateral primary osteoarthritis, left knee M17.12 ; Thrombocytopenia, unspecified D69.6 ; Encounter for screening for COVID-19 Z11.52 ; Encounter for immunization Z23 and Other fecal abnormalities R19.[address] [address] 01/05/2025 Nursing [facility] Encounter for immunization Z23 [address] [address] 04/11/2025 Eddieliza Casionan Encounter for screening for COVID-19 Z11.52 ; Unilateral primary osteoarthritis, left knee M17.12 ; Body mass index [BMI] 25.0-25.9, adult Z68.25 and Other instability, right hand M25.[address] 01/05/2025 Eddieliza Casionan Pain in right hand M79.641 and Unilateral primary osteoarthritis, left knee M17.[address] 01/06/2025 Carina Vang [address] 01/10/2025 Eddieliza Casionan Other instability, right hand M25.[address] 02/03/2025 Eddieliza Casionan Assessments Encounter Date Diagnosis (ICD Code) Assessment Notes Treatment Notes Treatment Clinical Notes Section Notes 11/02/2024 Encounter for screening for COVID-19 (ICD-10 - Z11.52) Covid verbal screening negative. 11/24/2024 Encounter for general adult medical examination with abnormal findings (ICD-10 - Z00.01) Annual PE performed.General recommendation for good health made: brush/floss your teeth 2x per day. Eat a healthy diet and obtain 30 minutes of aerobic exercise 5/7 days per week. Maintain high in take of water and avoid soda and energy drinks. Get 8 hours of sleep every night. 11/24/2024 Encounter for screening for respiratory tuberculosis (ICD-10 - Z11.1) TB testing is completed on patients every 6 months with housing instability and those using substances. Quantiferon gold will be drawn. 12/01/2024 Encounter for screening, unspecified (ICD-10 - Z13.9) Diagnostic labs drawn as ordered per protocol using aseptic technique. We will attempt to reach you by telephone to discuss the test results. If we cannot reach you by telephone, we will mail you your results to the address we have on file. In all cases, results will be reviewed at your next office visit. We will contact you sooner if you have a telephone or address where we can reach you for abnormal test results requiring immediate action. Labs drawn by:LF 12/08/2024 Thrombocytopenia, unspecified (ICD-10 - D69.6) Hold ibuprofen No bruises or active bleeding 12/08/2024 Unilateral primary osteoarthritis, left knee (ICD-10 - M17.12) Will trial meloxicam. Aware that he has to stop ibuprofen 01/05/2025 Encounter for immunization (ICD-10 - Z23) Screening performed for vaccine contraindications prior to administration. See scanned document. VIS reviewed. No contraindications for vaccine administration. Hepatitis B #2 vaccine given per protocol. No adverse outcome with administration of vaccine. Next dose due in 5 months, appt card given to patient 04/11/2025 Unilateral primary osteoarthritis, left knee (ICD-10 - M17.12) On physical therapy 04/11/2025 Encounter for screening for COVID-19 (ICD-10 - Z11.52) Covid screening is negative. Discussed in detail with patient how to practice social distancing by avoiding public spaces and crowds now, wearing a mask in public to keep nose and mouth covered, and washing hands frequently especially before eating and after using the bathroom. Return to clinic if you develop any symtpoms of concern to be rescreened or go to the emergency room if you are having concerning symptoms for COVID-19. 01/05/2025 Pain in right hand (ICD-10 - M79.641) 01/10/2025 Other instability, right hand (ICD-10 - M25.341) 11/02/2024 Sheltered homelessness (ICD-10 - Z59.01) Medical, Social and psych history reviewed and documented in [facility]. Only immunization record available on [facility] is a previous influenza vaccine. Pt did not report any medical issues at time of visit. Pt scheduled to establish care, encouraged to contact clinic with any issues prior to scheduled appt. 11/24/2024 Encounter for screening for infectious and parasitic diseases, unspecified (ICD-10 - Z11.9) screen for STI 12/08/2024 Encounter for screening for COVID-19 (ICD-10 - Z11.52) Covid verbal screening negative. 04/11/2025 Body mass index [BMI] 25.0-25.9, adult (ICD-10 - Z68.25) normal BMI 01/05/2025 Unilateral primary osteoarthritis, left knee (ICD-10 - M17.12) 11/02/2024 Encounter for screening examination for other mental health and behavioral disorders (ICD-10 - Z13.39) PHQ-9 assessed score was 11 - moderate depression. Not interested in mental health at [facility] due to him waintg for bhn appt. 11/24/2024 Encounter for screening for malignant neoplasm of colon (ICD-10 - Z12.11) Insure FIT testing agreed upon to screen for occult blood from colorectal disease. Instructed in use. Patient collection kit labeled and given to patient; questions regarding how to collect samples answered. Reminded to place date on each sample and mail back the card with completed requisition. 12/08/2024 Encounter for immunization (ICD-10 - Z23) VIS reviewed. Discussed risks and benefits of vaccine. Agrees to have vaccine. 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 - F10.90) On recovery 12/08/2024 Other fecal abnormalities (ICD-10 - R19.5) Agrees to GI 11/24/2024 Sheltered homelessness (ICD-10 - Z59.01) Staying at [facility] 11/24/2024 Body mass index [BMI] 27.0-27.9, adult (ICD-10 - Z68.27) Engaged discussion on maintaining healthy lifestyle: healthy diet low on fats and simple carbohydrates, and regular physical exercise of at least 30 minutes daily 11/24/2024 Overweight (ICD-10 - E66.3) Engaged discussion on maintaining healthy lifestyle: healthy diet low on fats and simple carbohydrates, and regular physical exercise of at least 30 minutes daily 11/24/2024 Major depressive disorder, recurrent, moderate (ICD-10 - F33.1) Engaged with a MH provider 11/24/2024 Unilateral primary osteoarthritis, left knee (ICD-10 - M17.12) Using a brace Request referral to ortho 11/24/2024 Other instability, right hand (ICD-10 - M25.341) Understands that condition is chronic and may not improve 11/23/2024 Other Time spent in v isit: minutes 11/02/2024 Other Time spent in visit: minutes: 30 mins Pt has his own dentist does not need a ref for hsh 11/24/2024 Other 12/08/2024 Other 04/11/2025 Other Plan Of Treatment Pending Test Test Name Order Date CBC 11/24/2024 CHLAMYDIA / GC DNA W RFLX 11/24/2024 COMPREHENSIVE METABOLIC PANEL 11/24/2024 GLYCOHEMOGLOBIN PROFILE 11/24/2024 HEPATITIS C VIRUS SCREEN 11/24/2024 HEPATITIS A ANTIBODY TOTAL 11/24/2024 HIV 1 AND 2 ANTIBODY SCREEN 11/24/2024 LIPID PROFILE 11/24/2024 TREPONEMAL AB 11/24/2024 TSH CASCADE 11/24/2024 CR Hand RT Min 3 Views 01/10/2025 Next Appt Details Provider Name:Nursing DAVID, 06/07/2025 08:30:00 AM, [address] [place] [address], [phone], Provider Name:Tiny roque, 12/11/2025 10:00:00 AM, [address] [place] [address], [phone], Insurance Providers Payer Name Payer Address Payer Phone Subscriber Number Group Number Insured Name Patient Relationship to Insured Coverage Start Date Coverage End Date [place] C3 [address] [place], [place] [id number] Timbo Eaton Self - patient is the insured 4 Medical (General) History Medical History History ICD Code Anxiety disorder Surgical History Surgery Date(Month/Year) right hand surgery was bitten by a cat broken nose Hospitalization History Reason Date(Month/Year) detoxification- alcohol
== END 2025-05-12 13:14 | disposition home or self-care (01) ==
LOC: HO.NEURO 13:13
PROVIDERS: Visit Provider Student in an Organized Health Care Education/Training Program
DX: R20.0 Anesthesia of skin (principal); R20.2 Paresthesia of skin
CPT/HCPCS: 95886; 95909

== ENCOUNTER → 2025-05-12 13:30 | Outpatient (BNV) | payer MEDICAID, SELFPAY | PROVIDERS: Visit Provider Physical Medicine & Rehabilitation | DX: G56.01 Carpal tunnel syndrome, right upper limb (principal) | CPT/HCPCS: 95886; 95909 ==